=== PATIENT | male | born 1945 | race Caucasian/White ===

== ENCOUNTER 2020-04-28 09:34 | Emergency (ER) | payer MEDICARE, SELFPAY ==
[2020-04-28 10:07] VITALS: PULSE 73; RESP 15; TEMP 36.8; O2SAT 99; BMI 34.2
--- NOTE | 2020-04-28 10:52 | ED_ITS ---
HPI - Dental/Oral General Chief complaint: Dental/Oral Stated complaint: root canal infection causing left side facial pain Time Seen by Provider: 04/28/20 10:41 Source: patient and family () Mode of arrival: Ambulatory Limitations: no limitations History of Present Illness HPI Narrative: This is a 74-year-old male comes to the emergency department with complaint of dental pain in the left cheek that has been intermittent but started again last night and is now radiating up the cheek, towards the left ear into his left eye and scalp. Patient states that he has also noticed the left eye is injected. And that he has had some decreased vision that things are sort of blurry and bright. He states the vision changes started last night. He denies any fevers. He denies any vomiting but was slightly nauseated. No numbness, tingling or weakness. No facial droop. No dysarthria difficulty with speech. Patient has not any difficulty with movement. He states he tried some Tylenol last night and his last dose was at 9:00 a.m. is helpful for a couple hours but then recurs. Pain is worse than it typically is. He states that he had a dental procedure in the past where they punctured into the sinus, he states that it has not been repaired he has been told that will not repair it. He does have a history of TIA approximately a year ago. He is on antihypertensive, dyslipidemia medication, insulin, and Plavix. Location: Tooth # (13/14 region.) Review of Systems Review of Systems ROS Unobtainable: All systems reviewed & are unremarkable except as noted in HPI and below Patient History Social History Smoking Status: Former smoker Smoking Status: Former smoker alcohol intake frequency: 0-2 drinks per day Substance Use Type: does not use Exam Narrative Exam Narrative: GEN: well nourished, well appearing male, alert and oriented x 3, patient appears to be in mild distress. HEENT: Atraumatic, pupils are equal round reactive to light bilaterally but asymmetric. Left pupil is 4-5 mm and right pupil is 2-3 mm. Posterior exam is difficult secondary to small pupils but the left side does seem darker. extraocular movements are intact, no swelling periorbitally. Nares are clear, TMs are clear with no fluid, there is no conjunctival pallor. Throat is clear without any exudates, erythema, tonsillar enlargement or uvular deviation Visual acuity: right [20/50], left [20/200] without correction. IOP: Right 19 mm Hg, Left 52 mm Hg General: no globe trauma Eyelids: normal inspection. Conjunctiva/Sclera: normal inspection on right, injected on right. Corneas: normal inspection, EOM: intact, no palsy/entrapment Pupils: PERRL, normal accomadation, pupil asymmetric see above Anterior Chambers: normal inspection, no hypema Posterior: normal fundoscopic difficult to obtain on left HEART: Regular rate and rhythm without murmur, clicks, rubs. LUNGS:Lungs clear to auscultation, no wheezes, rales, crackles, chest moves symmetrically ABD:bowel sounds normal, soft, non-tender, no guarding, rebound, rigidity, no masses noted, no hepatosplenomegaly MSCL: Non-tender, no muscle atrophy, muscles strength 5/5 upper and lower extremities, full range of motion, normal gait NEURO:CN 2-12 intact, sensation normal SKIN: No erythema, no blistering or other skin changes noted. Initial Vital Signs Initial Vital Signs: Vital Signs Temperature 98.2 F 04/28/20 10:07 Pulse Rate 73 04/28/20 10:07 Respiratory Rate 15 04/28/20 10:07 Pulse Oximetry 99 04/28/20 10:07 Course Orders Ordered: ED Orders 04/28/20 11:12 CT facial bones w con Stat CT head/brain wo con Stat 04/28/20 11:41 Blood Culture Stat 04/28/20 11:42 Basic Metabolic Panel Stat Complete Blood Count AUTO DIFF Stat Lactate (Lactic Acid) Stat Partial Thromboplastin Time Stat Procalcitonin Stat Prothrombin Time INR Stat Discontinued Medications Acetazolamide (Acetazolamide 250 Mg Tablet) 500 mg PO NOW ONE Stop: 04/28/20 12:46 Last Admin: 04/28/20 13:44 Dose: 500 mg Documented by: RMARTIN Amlodipine Besylate (Amlodipine 5 Mg Tablet) 5 mg PO NOW ONE Stop: 04/28/20 13:37 Last Admin: 04/28/20 13:43 Dose: 5 mg Documented by: RMARTIN Brimonidine Tartrate (Brimonidine 0.2% Ophth 5 Ml) 1 drops EYE-LEFT BID ONE Stop: 12/06/20 13:55 Last Admin: 04/28/20 14:22 Dose: 1 drops Documented by: IVETTE Dorzolamide HCl (Dorzolamide 2% Ophth 10 Ml) 1 drops EYE-LEFT BID ONE Stop: 04/28/20 13:53 Last Admin: 04/28/20 14:26 Dose: 1 drops Documented by: IVETTE Morphine Sulfate (Morphine 4 Mg/Ml Inj) 2 mg IV NOW ONE Stop: 04/28/20 11:12 Last Admin: 04/28/20 11:48 Dose: 2 mg Documented by: MARIAH Morphine Sulfate (Morphine 4 Mg/Ml Inj) 4 mg IV NOW ONE Stop: 04/28/20 13:37 Last Admin: 04/28/20 13:44 Dose: 4 mg Documented by: IVETTE Pilocarpine HCl (Pilocarpine 2% Ophth Drops 15 Ml) 1 drops EYE-LEFT Q30MIN ONE Stop: 04/28/20 12:46 Last Admin: 04/28/20 13:27 Dose: 1 drops Documented by: IVETTE Proparacaine HCl (Proparacaine 0.5% Ophth [place]) 2 drops EYE-LEFT NOW ONE Stop: 04/28/20 11:19 Last Admin: 04/28/20 11:48 Dose: 2 drop Documented by: MARIAH Timolol Maleate (Timolol 0.5% Ophth) 1 drops EYE-LEFT DAILY ONE Stop: 04/28/20 12:44 Last Admin: 04/28/20 13:26 Dose: 1 drop Documented by: IVETTE Reevaluation(s) Reevaluation #1: UPdated patient and family on todays findings and need for emergent ophthalmology evaluation and potentially additional intervention. We did discuss that patient needs to go immediately to [facility] ER for evaluation. We also reviewed patient's imaging including head CT, CT facial bones, lab work. Reevaluation #2: Patient's repeat pressure is 52 but his pupils are now equal and his vision is slowly improving per patient visual acuity was not repeated. Time: 14:14 Additional Reevaluation(s): Spoke with Ophthalmology, Dr. Adames from [facility] as we do not have coverage. She recommends in addition to timolol to give dorzolamide ophthalmic and brimonidine gtts prior to transfer. We do not have as he does own mind IV available so will do as he does allow might 500 mg p.o. which patient has received. Plan for patient to transfer via private auto and that will facilitate faster treatment and patient is otherwise medically stable to [facility] ER Consultations Time: 13:16 Vital Signs Vital signs: Vital Signs - 8 hr 04/28/20 10:07 04/28/20 11:58 04/28/20 13:54 Temperature 98.2 F Pulse Rate 73 82 82 Respiratory Rate 15 18 16 Blood Pressure 193/85 H 204/79 H Pulse Oximetry 99 98 95 04/28/20 14:24 Temperature Pulse Rate 76 Respiratory Rate 18 Blood Pressure 196/85 H Pulse Oximetry 94 MDM - Dental/Oral Lab Data Attestation: I reviewed the patient's lab results. Result diagrams: 04/28/20 11:42 04/28/20 11:42 Labs: Lab Results 04/28/20 04/28/20 04/28/20 Range/Units 11:42 11:42 11:42 WBC 11.1 H (4.5-11.0) X10^3/uL RBC 4.75 (4.5-5.9) X10^6/uL Hgb 13.0 L (13.5-17.5) g/dL Hct 39.9 L (41-53) % MCV 84.0 (80-100) fL MCH 27.3 (26-34) PG MCHC 32.5 (30-36) % RDW 14.2 (11.6-14.8) % Plt Count 264 (150-400) X10^3/uL Neut % (Auto) 84.3 H (50-75) % Lymph % (Auto) 9.3 L (25-40) % Nicollet % (Auto) 4.9 (3-14) % Eos % (Auto) 0.3 L (2-4) % Baso % (Auto) 1.2 (0-2) % Neut # (Auto) 9400 H (8359-1458) /uL Lymph # (Auto) 1000 L (2905-3285) /uL Nicollet # (Auto) 500 (0-900) /uL Eos # (Auto) 0 (0-450) /uL Baso # (Auto) 100 (0-100) /uL PT 12.2 (10.1-12.7) SECONDS INR 1.1 (0.9-1.3) APTT 34 (26.4-36.2) SECONDS Sodium (137-145) mmol/L Potassium (3.4-5.1) mmol/L Chloride (98-107) mmol/L Carbon Dioxide (22-32) mmol/L BUN (9-20) mg/dL Creatinine (0.66-1.25) mg/dL Estimated GFR (>60) mL/min BUN/Creatinine Ratio (6-22) Glucose (80-110) mg/dL Lactate (0.7-2.1) mmol/L Calcium (8.4-10.2) mg/dL Procalcitonin < 0.05 (<0.5) ng/mL 04/28/20 04/28/20 Range/Units 11:42 11:42 WBC (4.5-11.0) X10^3/uL RBC (4.5-5.9) X10^6/uL Hgb (13.5-17.5) g/dL Hct (41-53) % MCV (80-100) fL MCH (26-34) PG MCHC (30-36) % RDW (11.6-14.8) % Plt Count (150-400) X10^3/uL Neut % (Auto) (50-75) % Lymph % (Auto) (25-40) % Nicollet % (Auto) (3-14) % Eos % (Auto) (2-4) % Baso % (Auto) (0-2) % Neut # (Auto) (4872-7627) /uL Lymph # (Auto) (0688-3888) /uL Nicollet # (Auto) (0-900) /uL Eos # (Auto) (0-450) /uL Baso # (Auto) (0-100) /uL PT (10.1-12.7) SECONDS INR (0.9-1.3) APTT (26.4-36.2) SECONDS Sodium 139 (137-145) mmol/L Potassium 3.9 (3.4-5.1) mmol/L Chloride 105 (98-107) mmol/L Carbon Dioxide 29 (22-32) mmol/L BUN 21 H (9-20) mg/dL Creatinine 1.19 (0.66-1.25) mg/dL Estimated GFR 59.9 L (>60) mL/min BUN/Creatinine Ratio 17.6 (6-22) Glucose 173 H (80-110) mg/dL Lactate 0.9 (0.7-2.1) mmol/L Calcium 9.1 (8.4-10.2) mg/dL Procalcitonin (<0.5) ng/mL Point of Care Testing Glucose POC [address] scan - head: Radiologist's Impression: [address] [id number] Scan ReportSigned Patient: Raymundo Truong MMR#: [id number]: [id number]:[id number]/Sex: 74 / MDate of Service: 04/28/20Loc: EDAccession Number: [id number] Procedure: CT head/brain wo con Ordering Provider: Ana Lilia Garcia D.O. PROCEDURE: CT HEAD/BRAIN WO CON INDICATIONS: headache, dental/orbit pain, pupil assymetry TECHNIQUE: Noncontrast 4.5 mm thick angled axial sections acquired from the foramen magnum to the vertex, with coronal and sagittal reformats. For radiation dose reduction, the following was used: automated exposure control, adjustment of mA and/or kV according to patient size. COMPARISON: [facility], CT, CT HEAD WITHOUT CONTRAST, 06/17/2019, 22:34. FINDINGS: Image quality: Excellent. CSF spaces: Basal cisterns are patent. No extra-axial fluid collections. The ventricles are symmetric in size and shape. Brain: No intracranial bleeds or masses. There is cerebral volume loss for age, with resultant ventricular and sulcal prominence. There are periventricular and deep white matter chronic small vessel ischemic changes. There is intracranial internal carotid artery atherosclerosis. Skull and face: Calvarium and visualized facial bones appear intact, without suspicious lesions. Sinuses: Visualized sinuses and mastoids are clear. IMPRESSION: 1. No acute intracranial abnormalities. 2. Cerebral volume loss and chronic microvascular ischemic changes. Dictated by: Kanika Daniels M.D. on 04/28/2020 at 13:02 Approved by: Kanika Daneils M.D. on 04/28/2020 at 13:03 CT facial bones: Radiologist's Impression: [address], [place] [address] Scan ReportSigned Patient: Raymundo Truong [facility]#: [id number]: 7Acct:[id number]/Sex: 74 / MDate of Service: 04/28/20Loc: EDAccession Number: [id number] Procedure: CT facial bones w con Ordering Provider: Ana Lilia Garcia D.O. PROCEDURE: CT FACIAL BONES W CON INDICATIONS: dental pain, orbital pain left eye TECHNIQUE: After the administration of intravenous contrast, 2.5 mm axial sections acquired from the mid-neck to the frontal sinuses, with coronal and sagittal reformats. For radiation dose reduction, the following was used: automated exposure control, adjustment of mA and/or kV according to patient size. COMPARISON: [facility], CT, CT HEAD/BRAIN WO [facility], 04/28/2020, 12:39. FINDINGS: Image quality: Excellent. Soft tissues: No edema, masses, or fluid collections. No enlarged lymph nodes. Vascular: Visualized vascular structures appear patent throughout. Bony vascular foramina and canals appear normal. Bones: Facial bones appear intact, without fractures, erosions, or destruction. Visualized portions of the skull base and auditory canals also appear normal. Sinuses: Mild left maxillary sinus mucosal thickening.. Mastoid air cells are aerated. IMPRESSION: 1. No acute facial bone abnormalities. 2. Mild left maxillary sinusitis. Dictated by: Kanika Daniels M.D. on 04/28/2020 at 13:03 Approved by: Kanika Daniels M.D. on 04/28/2020 at 13:06 [facility] Narrative Medical decision making narrative: 74-year-old male comes in with complaint of dental pain that is now radiating to his eye, forehead any ear. Patient had prior trauma after a dental procedure that makes him more predisposed to sin usitis. On examination there is asymmetry of pupils size noted as well as decreased response to light. Patient's visual acuity is decreased significantly in the left eye and his intra-ocular pressure was 52 and comparison to 19 on the right, patient has never been told that he had glaucoma, he has seen an cans vacuum tester regularly and was told he might be developing cataracts. He has not had symptoms similar to this or to this degree in the past and ophthalmology was consulted, spoke with Dr. Adames who recommend transfer for evaluation. Plan to transfer via private auto as it will facilitate faster treatment than waiting for an ambulance and patient is otherwise medically appropriate. Patient's and the patient himself and I will discuss the current plan and importance for timely treatment to prevent loss of vision. Discharge Plan Departure Patient Disposition: [facility] Clinical Impression: Glaucoma, Changes in vision Activity Restrictions/Additional Instructions: Go directly to [facility] Emergency Department for evaluation by ophthalmology for acute angle closure glaucoma. I did speak with Dr. Adames from Ophthalmology and they are expecting you to come to the ER for evaluation. You received several eyedrops here in the emergency department as well as acetaz queenie 500 mg by mouth. Take the packet that was given to you in the emergency department with you to give to the physician or nursing staff at [facility].
--- NOTE | 2020-04-28 11:12 | DI.CT.S_ITS ---
PROCEDURE: CT HEAD/BRAIN WO CON INDICATIONS: headache, dental/orbit pain, pupil assymetry TECHNIQUE: Noncontrast 4.5 mm thick angled axial sections acquired from the foramen magnum to the vertex, with coronal and sagittal reformats. For radiation dose reduction, the following was used: automated exposure control, adjustment of mA and/or kV according to patient size. COMPARISON: [facility], CT, CT HEAD WITHOUT CONTRAST, 06/17/2019, 22:34. FINDINGS: Image quality: Excellent. CSF spaces: Basal cisterns are patent. No extra-axial fluid collections. The ventricles are symmetric in size and shape. Brain: No intracranial bleeds or masses. There is cerebral volume loss for age, with resultant ventricular and sulcal prominence. There are periventricular and deep white matter chronic small vessel ischemic changes. There is intracranial internal carotid artery atherosclerosis. Skull and face: Calvarium and visualized facial bones appear intact, without suspicious lesions. Sinuses: Visualized sinuses and mastoids are clear. IMPRESSION: 1. No acute intracranial abnormalities. 2. Cerebral volume loss and chronic microvascular ischemic changes. Dictated by: Kanika Daniels M.D. on 04/28/2020 at 13:02 Approved by: Kanika Daniels M.D. on 04/28/2020 at 13:03
--- NOTE | 2020-04-28 11:12 | DI.CT.S_ITS ---
PROCEDURE: CT FACIAL BONES W CON INDICATIONS: dental pain, orbital pain left eye TECHNIQUE: After the administration of intravenous contrast, 2.5 mm axial sections acquired from the mid-neck to the frontal sinuses, with coronal and sagittal reformats. For radiation dose reduction, the following was used: automated exposure control, adjustment of mA and/or kV according to patient size. COMPARISON: [facility], CT, CT HEAD/BRAIN WO CON, 04/28/2020, 12:39. FINDINGS: Image quality: Excellent. Soft tissues: No edema, masses, or fluid collections. No enlarged lymph nodes. Vascular: Visualized vascular structures appear patent throughout. Bony vascular foramina and canals appear normal. Bones: Facial bones appear intact, without fractures, erosions, or destruction. Visualized portions of the skull base and auditory canals also appear normal. Sinuses: Mild left maxillary sinus mucosal thickening.. Mastoid air cells are aerated. IMPRESSION: 1. No acute facial bone abnormalities. 2. Mild left maxillary sinusitis. Dictated by: Kanika Daniels M.D. on 04/28/2020 at 13:03 Approved by: Kanika Daniels M.D. on 04/28/2020 at 13:06
[2020-04-28] MEDS: PROPARACAINE 0.5% OPHTH SOL 2 DROPS EYE-LEFT (11:48)
[2020-04-28] MEDS: MORPHINE 4 MG/ML INJ 2 MG IV (11:48)
[2020-04-28 11:54] LABS: Add Manual Diff / Slide Review NO; Basophils Absolute Auto 100 /uL (0-100); Basophils Percent Auto 1.2 % (0-2); Eosinophils Absolute Auto 0 /uL (0-450); Eosinophils Percent Auto 0.3 % (2-4); Hematocrit 39.9 % (41-53); Lymphocytes Absolute Auto 1000 /uL (1100-4500); Lymphocytes Percent Auto 9.3 % (25-40); Mean Corpuscular HGB Conc 32.5 % (30-36); Mean Corpuscular Hemoglobin 27.3 PG (26-34); Monocytes Absolute Auto 500 /uL (0-900); Monocytes Percent Auto 4.9 % (3-14); Neutrophils Absolute Auto 9400 /uL (1500-7000); Neutrophils Percent Auto 84.3 % (50-75); Platelet Count 264 X10^3/uL (150-400); Red Blood Cell Count 4.75 X10^6/uL (4.5-5.9); Red Cell Distribution Width 14.2 % (11.6-14.8); White Blood Cell Count 11.1 X10^3/uL (4.5-11.0)
[2020-04-28 11:58] VITALS: BP 193/85; PULSE 82; RESP 18; O2SAT 98
[2020-04-28 12:03] LABS: INR 1.1 (0.9-1.3); Prothrombin Time 12.2 SECONDS (10.1-12.7)
[2020-04-28 12:06] LABS: BUN Creatinine Ratio 17.6 (6-22); Blood Urea Nitrogen 21 mg/dL (9-20); Calcium 9.1 mg/dL (8.4-10.2); Carbon Dioxide 29 mmol/L (22-32); Chloride 105 mmol/L (98-107); Estimated Glomerular Filt Rate 59.9 mL/min (>60); Glucose 173 mg/dL (80-110); HEMOLYSIS < 15 (0-50); PTT Partial Thromboplastin Tim 34 SECONDS (26.4-36.2); Potassium 3.9 mmol/L (3.4-5.1); Sodium 139 mmol/L (137-145)
[2020-04-28 12:07] LABS: Lactate (Lactic Acid) 0.9 mmol/L (0.7-2.1)
[2020-04-28 12:22] LABS: Procalcitonin < 0.05 ng/mL (<0.5)
[2020-04-28] MEDS: ONDANSETRON 4 MG/2 ML INJ (12:54)
--- NOTE | 2020-04-28 12:55 | PC.NURSE ---
ct called to inform staff patient vomiting in CT. Provider gave verbal order fro 4mg zofran IV. Given in CT. Pt ambulated back to room, stead on feet.
[2020-04-28] MEDS: TIMOLOL 0.5% OPHTH 1 DROPS EYE-LEFT (13:26)
[2020-04-28] MEDS: PILOCARPINE 2% OPHTH DROPS 15 ML 1 DROPS EYE-LEFT (13:27)
[2020-04-28] MEDS: AMLODIPINE 5 MG TABLET PO (13:43)
[2020-04-28] MEDS: MORPHINE 4 MG/ML INJ IV (13:44)
[2020-04-28] MEDS: acetaZOLAMIDE 250 MG TABLET 500 MG PO (13:44)
[2020-04-28 13:54] VITALS: BP 204/79; PULSE 82; RESP 16; O2SAT 95
--- NOTE | 2020-04-28 13:54 | PC.NURSE ---
Patient BP 204/79. States takes amlodopine 5mg daily for HTN and did not take morning dose. Denies chest pain or headache. Provider notified, home dose of amlodopine ordered and given.
[2020-04-28] MEDS: BRIMONIDINE 0.2% OPHTH 5 ML 1 DROPS EYE-LEFT (14:22)
[2020-04-28 14:24] VITALS: BP 196/85; PULSE 76; RESP 18; O2SAT 94
[2020-04-28] MEDS: DORZOLAMIDE 2% OPHTH 10 ML 1 DROPS EYE-LEFT (14:26)
== END 2020-04-28 14:57 | disposition short-term general hospital (02) ==
PROVIDERS: Emergency Provider Emergency Medicine
DX: H40.9 Unspecified glaucoma (principal); H53.8 Other visual disturbances; R51.9 Headache, unspecified; R11.0 Nausea; Z86.73 Personal history of transient ischemic attack (TIA), and cerebral infarction without residual deficits; I10 Essential (primary) hypertension; E78.5 Hyperlipidemia, unspecified
CPT/HCPCS: 36415; 70450; 70487; 80048; 82962; 83605; 84145; 85025; 85610; 85730; 87040; 96374; 96376; 99283; 99284; J2270; J2405; Q9967

== ENCOUNTER → 2020-09-10 13:44 | Outpatient (CLI) | payer MEDICARE, SELFPAY | PROVIDERS: PCP Student in an Organized Health Care Education/Training Program; Visit Provider Physician Assistant | DX: R31.9 Hematuria, unspecified (principal) | CPT/HCPCS: 87086 ==

== ENCOUNTER → 2020-09-18 11:51 | Outpatient (CLI) | payer MEDICARE, SELFPAY ==
[2020-09-18 12:34] LABS: HEMOLYSIS < 15 (0-50)
[2020-09-18 12:35] LABS: BUN Creatinine Ratio 14.7 (6-22); Blood Urea Nitrogen 22 mg/dL (9-20); Calcium 8.8 mg/dL (8.4-10.2); Carbon Dioxide 28 mmol/L (22-32); Chloride 106 mmol/L (98-107); Cholesterol 128 mg/dL (140-199); Estimated Glomerular Filt Rate 45.9 mL/min (>60); Glucose 181 mg/dL (80-110); HDL Cholesterol 35 mg/dL (40-60); LDL Cholesterol Calculated 59 mg/dL (<100); Sodium 138 mmol/L (137-145); Triglycerides 168 mg/dL (35-150)
[2020-09-18 13:01] LABS: Prostate Specific Antigen Scrn 1.43 ng/mL (0.1-4.0)
== END ==
PROVIDERS: PCP Student in an Organized Health Care Education/Training Program; Referring Provider Student in an Organized Health Care Education/Training Program; Visit Provider Student in an Organized Health Care Education/Training Program
DX: E11.69 Type 2 diabetes mellitus with other specified complication; Z12.5 Encounter for screening for malignant neoplasm of prostate; I87.2 Venous insufficiency (chronic) (peripheral)
CPT/HCPCS: 36415; 80048; 80061; 83036; G0103

== ENCOUNTER 2021-02-19 18:31 | Emergency (ER) | payer MEDICARE, SELFPAY ==
--- NOTE | 2021-02-19 18:37 | ED.GENADULT ---
HPI - General Adult General Chief complaint: Fall Stated complaint: GLF Time Seen by Provider: 02/19/21 18:31 Source: patient and EMS Mode of arrival: EMS History of Present Illness HPI narrative: Patient is a 75-year-old male. Is on anticoagulation. Was brought in by EMS for evaluation of a fall. He states that he thought that he heard his fall at home. He went to go check on her and tripped and fell on his own. He did land on his right side. He did not hit his head. There was no loss of consciousness. Complained of right hip pain and right shoulder pain and also neck pain. He was in a cervical collar upon arrival. Patient reports no other injuries from the event. Related Data Home Medications Medication Instructions Recorded Confirmed carvedilol 12.5 mg tablet 12.5 mg PO BID 09/10/20 11/07/20 fenofibrate 54 mg tablet 54 mg PO DAILY 09/10/20 11/07/20 clopidogrel 75 mg tablet 75 mg PO DAILY 09/18/20 11/07/20 insulin NPH isoph U-100 human 100 40 unit SUBCUT BID ml 09/18/20 11/07/20 unit/mL subcutaneous suspension (Novolin N NPH U-100 Insulin isophane) lisinopril 40 mg tablet 40 mg PO DAILY 09/18/20 11/07/20 one touch ultra blue test strips #1 ea 09/18/20 11/07/20 Previous Rx's Medication Instructions Recorded tamsulosin 0.4 mg capsule 0.8 mg PO DAILY #180 cap 09/18/20 amlodipine 5 mg tablet 10 mg PO DAILY #180 tab 12/02/20 rosuvastatin 20 mg tablet 20 mg PO DAILY #90 tab 02/06/21 Allergies Allergy/AdvReac Type Severity Reaction Status Date / Time Interferons Allergy Severe unknown Verified 02/19/21 18:53 sitagliptin [From Januvia] Allergy Severe unknown Verified 02/19/21 18:53 Review of Systems Constitutional Constitutional: Denies frequent falls and Denies headache(s) Eyes Eyes: Reports system reviewed and no additional complaints, except as documented ENT Ears, Nose, Mouth, and Throat: Denies headache(s) Cardiovascular Cardiovascular: Reports as per HPI and Reports system reviewed and no additional complaints, except as documented Respiratory Respiratory: Reports as per HPI and Reports system reviewed and no additional complaints, except as documented Gastrointestinal Gastrointestinal: Reports as per HPI and Reports system reviewed and no additional complaints, except as documented Musculoskeletal Musculoskeletal: Reports as per HPI Integumentary/Breasts Skin/Breast: Reports system reviewed and no additional complaints, except as documented Neurologic Neurologic: Denies frequent falls and Denies headache(s) Hematologic/Lymphatic On Anticoagulants: Yes Allergic/Immunologic Allergic/Immunologic: Reports system reviewed and no additional complaints, except as documented Patient History Medical History Bladder cancer BPH loc w urin obs/LUTS Hyperlipidemia Scrotum swelling Social History Smoking Status: Former smoker Smoking Status: Former smoker alcohol intake frequency: 0-2 drinks per day Substance Use Type: does not use Exam Initial Vital Signs Initial Vital Signs: Vital Signs Temperature 98.0 F 02/19/21 18:53 Pulse Rate 73 02/19/21 18:53 Respiratory Rate 15 02/19/21 18:53 Blood Pressure 209/89 H 02/19/21 18:53 Pulse Oximetry 98 02/19/21 18:53 Const General: cooperative, healthy appearing, comfortable and well developed [facility] Head: normal to inspection, normocephalic, No abrasion, No Irving's sign and No contusion Eyes General: appearance normal, both eyes and all related structures Chest Chest: No crepitus and No tenderness Resp Effort & Inspection: normal respiratory effort Auscultation: clear to auscultation bilaterally Cardio Rate: regular rate Rhythm: regular rhythm GI Inspection: normal to inspection Palpation: soft and No tender Back/Spine/Pelvis Cervical Spine: cervical spinal tenderness Skin General: no rashes or lesions noted Neuro General: patient alert, patient awake, patient oriented x3 and moves all extremities Extrem General: normal to inspection and capillary refill normal Other: Patient does have full range of motion of his right shoulder but has tenderness to palpation on the oral/posterior aspect of it. Also has tenderness to palpation on the lateral aspect of the right hip. His pelvis is otherwise stable. Left hip is unremarkable. Psych Appearance: grossly normal and well kempt Scores GCS Ki coma scale eye opening: Spontaneous Ki coma scale verbal response: Orientated Ki coma scale motor response: Obey commands [place] coma scale total score: 15 Nexus Score for C-Spine Focal Neurologic deficit present: No Midline spinal tenderness present: Yes Altered level of conciousness present: No Intoxication present: No Distracting Injury Present: No Nexus Criteria for C-spine: 1 Course Orders Ordered: ED Orders 02/19/21 18:37 CT cervical spine wo con Stat XR hip w pel if done RT 2V Stat XR shoulder RT min 2V Stat 02/19/21 18:42 CT head/brain wo con Stat Discontinued Medications Acetaminophen (Acetaminophen 325 Mg Tablet) 650 mg PO NOW ONE Stop: 02/19/21 19:31 Last Admin: 02/19/21 19:35 Dose: 650 mg Documented by: HEENA Vital Signs Vital signs: Vital Signs - 8 hr 02/19/21 18:53 Temperature 98.0 F Pulse Rate 73 Respiratory Rate 15 Blood Pressure 209/89 H Pulse Oximetry 98 Medical Decision Making Imaging Data CT scan - head: Radiologist's Impression: [address] [id number] Scan ReportSigned Patient: Raymundo Truong MMR#: [id number]: 7Acct:[id number]/Sex: 75 / MDate of Service: 02/19/21Loc: EDAccession Number: [id number] Procedure: CT head/brain wo con Ordering Provider: Mauricio Chacko D.O. PROCEDURE: CT HEAD/BRAIN WO CON INDICATIONS: fall on thinners TECHNIQUE: Noncontrast 4.5 mm thick angled axial sections acquired from the foramen magnum to the vertex, with coronal and sagittal reformats. For radiation dose reduction, the following was used: automated exposure control, adjustment of mA and/or kV according to patient size. COMPARISON: [facility], CT, CT HEAD/BRAIN WO CON, 04/28/2020, 12:39. FINDINGS: Image quality: Excellent. CSF spaces: Basal cisterns are patent. No extra-axial fluid collections. The ventricles are symmetric in size and shape. Brain: No intracranial bleeds or masses. There is mild cerebral volume loss for age, with resultant ventricular and sulcal prominence. There are mild periventricular and deep white matter chronic small vessel ischemic changes. There is moderate intracranial internal carotid artery atherosclerosis. Skull and face: Calvarium and visualized facial bones appear intact, without suspicious lesions. Sinuses: Visualized sinuses and mastoids are clear. IMPRESSION: 1. No acute intracranial hemorrhage. 2. Age-appropriate exam with mild chronic microvascular ischemic changes. 3. No visible fractures. Dictated by: Angelica Connor M.D. on 02/19/2021 at 19:05 Approved by: Angelica Connor M.D. on 02/19/2021 at 19:08 CT - cervical spine: Radiologist's Impression: [address] [id number] Scan ReportSigned Patient: Raymundo Truong MMR#: [id number]: 7Acct:[id number]/Sex: 75 / MDate of Service: 02/19/21Loc: EDAccession Number: [id number] Procedure: CT cervical spine wo con Ordering Provider: Mauricio Chacko D.O. PROCEDURE: CT CERVICAL SPINE WO CON INDICATIONS: midline neck pain after fall TECHNIQUE: Noncontrast 3 mm thick sections acquired from the skull base to the T4 level. Sagittal and coronal reformats were then constructed. For radiation dose reduction, the following was used: automated exposure control, adjustment of mA and/or kV according to patient size. COMPARISON: [facility], CT, CT ANGIO HEAD AND NECK, 06/18/2019, 8:36. FINDINGS: Image quality: Excellent. Bones: No fractures or pathologic subluxation. There are prominent anterior and posterior endplate osteophytes at C5, C6, and C7 with bridging osteophytosis anteriorly into the upper thoracic spine. Moderate to severe disc height loss C5-6 and C6-7. Probable moderate multilevel central canal stenosis.. Visualized superior ribs are intact. Soft tissues: Prevertebral soft tissues are normal in thickness. No paravertebral hematomas. No apical pneumothoraces. There is a large fatty mass arising from the left paramedian latissimus muscle measuring at least 13.9 x 8.2 x 6.4 cm Bilateral dependently layering pleural effusions. IMPRESSION: 1. No acute fracture or pathologic subluxation. 2. Multilevel degenerative endplate spurring in the lower cervical spine without significant change since prior. 3. 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 Dictated by: Angelica Connor M.D. on 02/19/2021 at 19:08 Approved by: Angelica Connor M.D. on 02/19/2021 at 19:15 Extremity x-ray #1: Radiologist's Impression: [address] [id number] ReportSigned Patient: Raymundo Truong [facility]#: [id number]: 7Acct:[id number]/Sex: 75 / MDate of Service: 02/19/21Lo: EDAccession Number: [id number] Procedure: XR shoulder RT min 2V Ordering Provider: Mauricio Chacko D.O. PROCEDURE: XR SHOULDER RT MIN 2V INDICATIONS: pain after fall TECHNIQUE: 3 views of the shoulder were acquired. COMPARISON: None. FINDINGS: Bones: No fractures or dislocations. No suspicious bony lesions. Visualized ribs appear intact. Soft tissues: No suspicious soft tissue calcifications. Chronic interstitial changes noted in the right lung apex IMPRESSION: No fracture or dislocation. Approved by: Kwadwo Menendez M.D. on 02/19/2021 at 18:16 Extremity x-ray #2: Radiologist's Impression: [address] [id number] ReportSigned Patient: Raymundo Truong [facility]#: [id number]: 7Acct:[id number]/Sex: 75 / MDate of Service: 02/19/21Lo: EDAccession Number: [id number] Procedure: XR hip w pel if done RT 2V Ordering Provider: Mauricio Chacko D.O. PROCEDURE: XR HIP W PEL IF DONE RT 2V INDICATIONS: pain after fall TECHNIQUE: AP pelvis with lateral view(s) of the right hip(s). COMPARISON: None. FINDINGS: Bones: No fractures or dislocations. Pelvic ring appears intact. No suspicious bony lesions. Moderate bilateral joint space narrowing present. Soft tissues: The visualized bowel gas pattern is normal. No suspicious soft tissue calcifications. Atherosclerotic vascular calcification noted. IMPRESSION: Moderate bilateral osteoarthritis without fracture or dislocation. Approved by: Kwadwo Menendez M.D. on 02/19/2021 at 18:15 MDM Narrative Medical decision making narrative: Patient has no fractures on his x-rays. Head CT and cervical spine CT unremarkable. He was given Tylenol for discomfort. No further workup needed in the emergency department. Was given return precautions and follow-up instructions. He expressed understanding and agreement. Discharge Plan Departure Patient Disposition: Home Clinical Impression: Contusion of hip, right, Contusion of shoulder Instructions: How To Perform RICE (Rest, Ice, Compress, Elevate) Activity Restrictions/Additional Instructions: Your x-rays today and CT scans do not show any signs of fractures or internal bleeding. Continue to take all of your medications as directed. I would expect that your own to be sore tomorrow. You can continue to take Tylenol. Return to the emergency department for any new or worsening symptoms Prescriptions: No Action carvedilol 12.5 mg tablet 12.5 mg PO BID RF: 0 fenofibrate 54 mg tablet 54 mg PO DAILY RF: 0 amlodipine 5 mg tablet 10 mg PO DAILY Qty: 180 RF: 2 rosuvastatin 20 mg tablet 20 mg PO DAILY Qty: 90 RF: 1 lisinopril 40 mg tablet 40 mg PO DAILY RF: 0 (DME) one touch ultra blue test strips 0 .Route .MEDSUPPLY Qty: 1 RF: 0 clopidogrel 75 mg tablet 75 mg PO DAILY RF: 0 Novolin N NPH U-100 Insulin 100 unit/mL suspension 40 unit SUBCUT BID RF: 0 tamsulosin 0.4 mg capsule 0.8 mg PO DAILY Qty: 180 RF: 3 Referrals: Toan Oliveira MD [Primary Care Provider] -
--- NOTE | 2021-02-19 18:42 | DI.CT.S_ITS ---
PROCEDURE: CT HEAD/BRAIN WO CON INDICATIONS: fall on thinners TECHNIQUE: Noncontrast 4.5 mm thick angled axial sections acquired from the foramen magnum to the vertex, with coronal and sagittal reformats. For radiation dose reduction, the following was used: automated exposure control, adjustment of mA and/or kV according to patient size. COMPARISON: [facility], CT, CT HEAD/BRAIN WO CON, 04/28/2020, 12:39. FINDINGS: Image quality: Excellent. CSF spaces: Basal cisterns are patent. No extra-axial fluid collections. The ventricles are symmetric in size and shape. Brain: No intracranial bleeds or masses. There is mild cerebral volume loss for age, with resultant ventricular and sulcal prominence. There are mild periventricular and deep white matter chronic small vessel ischemic changes. There is moderate intracranial internal carotid artery atherosclerosis. Skull and face: Calvarium and visualized facial bones appear intact, without suspicious lesions. Sinuses: Visualized sinuses and mastoids are clear. IMPRESSION: 1. No acute intracranial hemorrhage. 2. Age-appropriate exam with mild chronic microvascular ischemic changes. 3. No visible fractures. Dictated by: Angelica Connor M.D. on 02/19/2021 at 19:05 Approved by: Angelica Connor M.D. on 02/19/2021 at 19:08
[2021-02-19 18:53] VITALS: BP 209/89; PULSE 73; RESP 15; TEMP 36.7; O2SAT 98; BMI 32.3
[2021-02-19] MEDS: ACETAMINOPHEN 325 MG TABLET 650 MG PO (19:35)
[2021-02-19 19:50] VITALS: BP 187/99; PULSE 76; RESP 20; O2SAT 92
== END 2021-02-19 20:05 | disposition home or self-care (01) ==
PROVIDERS: Emergency Provider Emergency Medicine; PCP Student in an Organized Health Care Education/Training Program
DX: S70.01XA Contusion of right hip, initial encounter (principal); S40.011A Contusion of right shoulder, initial encounter; M54.2 Cervicalgia; W19.XXXA Unspecified fall, initial encounter
CPT/HCPCS: 70450; 72125; 73030; 73502; 82962; 99284

== ENCOUNTER → 2021-05-02 11:44 | Outpatient (CLI) | payer MEDICARE, SELFPAY ==
[2021-05-02 12:30] LABS: Add Manual Diff / Slide Review NO; Basophils Absolute Auto 0 /uL (0-100); Basophils Percent Auto 0.7 % (0-2); Eosinophils Absolute Auto 100 /uL (0-450); Eosinophils Percent Auto 1.7 % (2-4); Hematocrit 35.4 % (41-53); Hemoglobin 11.5 g/dL (13.5-17.5); Lymphocytes Absolute Auto 1000 /uL (1100-4500); Lymphocytes Percent Auto 15.3 % (25-40); Mean Corpuscular HGB Conc 32.6 % (30-36); Mean Corpuscular Hemoglobin 27.7 PG (26-34); Mean Corpuscular Volume 85.2 fL (80-100); Monocytes Absolute Auto 600 /uL (0-900); Monocytes Percent Auto 9.4 % (3-14); Neutrophils Absolute Auto 4700 /uL (1500-7000); Neutrophils Percent Auto 72.9 % (50-75); Platelet Count 300 X10^3/uL (150-400); Red Blood Cell Count 4.16 X10^6/uL (4.5-5.9); Red Cell Distribution Width 14.9 % (11.6-14.8); White Blood Cell Count 6.4 X10^3/uL (4.5-11.0)
[2021-05-02 12:38] LABS: Hemoglobin A1C% w Est Avg Glu 6.4 % (4.0-6.0)
[2021-05-02 12:55] LABS: Alanine Aminotransferase 19 IU/L (<50); Albumin 3.1 g/dL (3.5-5.0); Albumin Globulin Ratio 1.2 (1.0-2.8); Alkaline Phosphatase 69 U/L (38-126); Aspartate Aminotransferase 28 IU/L (17-59); BUN Creatinine Ratio 16.4 (6-22); Bilirubin Total 0.5 mg/dL (0.2-1.3); Blood Urea Nitrogen 29 mg/dL (9-20); Calcium 8.9 mg/dL (8.4-10.2); Carbon Dioxide 25 mmol/L (22-32); Chloride 108 mmol/L (98-107); Estimated Glomerular Filt Rate 37.8 mL/min (>60); Globulin 2.6 g/dL (1.7-4.1); Glucose 117 mg/dL (80-110); HEMOLYSIS < 15 (0-50); Potassium 4.2 mmol/L (3.4-5.1); Sodium 140 mmol/L (137-145); Total Protein 5.7 g/dL (6.3-8.2)
[2021-05-02 13:28] LABS: TSH w/ Reflex to FT4 8.79 uIU/mL (0.47-4.68)
[2021-05-02 13:57] LABS: Free T4, Direct Thyroxine 1.09 ng/dL (0.78-2.19)
[2021-05-02 14:08] LABS: Creatinine Urine Random 67.6 mg/dL
[2021-05-02 16:59] LABS: Microalbumi Creatinin Ratio Ur 16050.2 ug/mg CR (<30)
== END ==
PROVIDERS: PCP Family Medicine; Referring Provider Family Medicine; Visit Provider Family Medicine
DX: D64.9 Anemia, unspecified (principal); E11.21 Type 2 diabetes mellitus with diabetic nephropathy; E78.5 Hyperlipidemia, unspecified; R09.89 Other specified symptoms and signs involving the circulatory and respiratory systems
CPT/HCPCS: 36415; 80053; 82043; 82570; 83036; 84439; 84443; 85025

== ENCOUNTER → 2021-05-26 10:55 | Outpatient (CLI) | payer MEDICARE, SELFPAY ==
[2021-05-26 11:47] LABS: Add Manual Diff / Slide Review NO; Basophils Absolute Auto 0 /uL (0-100); Basophils Percent Auto 0.5 % (0-2); Eosinophils Absolute Auto 100 /uL (0-450); Eosinophils Percent Auto 1.2 % (2-4); Hemoglobin 11.7 g/dL (13.5-17.5); Lymphocytes Absolute Auto 800 /uL (1100-4500); Mean Corpuscular HGB Conc 33.5 % (30-36); Mean Corpuscular Hemoglobin 28.3 PG (26-34); Mean Corpuscular Volume 84.5 fL (80-100); Monocytes Absolute Auto 500 /uL (0-900); Monocytes Percent Auto 8.2 % (3-14); Neutrophils Absolute Auto 4400 /uL (1500-7000); Neutrophils Percent Auto 76.1 % (50-75); Platelet Count 276 X10^3/uL (150-400); Red Blood Cell Count 4.14 X10^6/uL (4.5-5.9); Red Cell Distribution Width 15.2 % (11.6-14.8); White Blood Cell Count 5.8 X10^3/uL (4.5-11.0)
[2021-05-26 12:15] LABS: Alanine Aminotransferase 22 IU/L (<50); Albumin 2.8 g/dL (3.5-5.0); Albumin Globulin Ratio 1.1 (1.0-2.8); Alkaline Phosphatase 74 U/L (38-126); Aspartate Aminotransferase 33 IU/L (17-59); BUN Creatinine Ratio 11.7 (6-22); Bilirubin Total 0.4 mg/dL (0.2-1.3); Blood Urea Nitrogen 22 mg/dL (9-20); Calcium 8.7 mg/dL (8.4-10.2); Carbon Dioxide 25 mmol/L (22-32); Chloride 110 mmol/L (98-107); Estimated Glomerular Filt Rate 35.3 mL/min (>60); Globulin 2.6 g/dL (1.7-4.1); Glucose 127 mg/dL (80-110); HEMOLYSIS < 15 (0-50); Potassium 4.2 mmol/L (3.4-5.1); Sodium 139 mmol/L (137-145); Total Protein 5.4 g/dL (6.3-8.2)
[2021-05-26 12:32] LABS: TSH w/ Reflex to FT4 7.64 uIU/mL (0.47-4.68)
== END ==
PROVIDERS: PCP Family Medicine; Referring Provider Family Medicine; Visit Provider Family Medicine
DX: E11.21 Type 2 diabetes mellitus with diabetic nephropathy (principal); N04.9 Nephrotic syndrome with unspecified morphologic changes; N50.89 Other specified disorders of the male genital organs
CPT/HCPCS: 36415; 80053; 84439; 84443; 85025

== ENCOUNTER → 2021-07-24 10:54 | Outpatient (CLI) | payer MEDICARE, SELFPAY ==
[2021-07-24 12:11] LABS: Alanine Aminotransferase 19 IU/L (<50); Albumin 2.6 g/dL (3.5-5.0); Alkaline Phosphatase 54 U/L (38-126); Aspartate Aminotransferase 31 IU/L (17-59); BUN Creatinine Ratio 15.4 (6-22); Bilirubin Total 0.4 mg/dL (0.2-1.3); Blood Urea Nitrogen 30 mg/dL (9-20); Calcium 8.1 mg/dL (8.4-10.2); Carbon Dioxide 27 mmol/L (22-32); Chloride 111 mmol/L (98-107); Estimated Glomerular Filt Rate 33.8 mL/min (>60); Globulin 2.7 g/dL (1.7-4.1); Glucose 83 mg/dL (80-110); HEMOLYSIS < 15 (0-50); Potassium 3.5 mmol/L (3.4-5.1); Sodium 140 mmol/L (137-145); Total Protein 5.3 g/dL (6.3-8.2)
[2021-07-24 12:20] LABS: HEMOLYSIS 45 (0-50); Iron 53 ug/dL (49-181)
[2021-07-24 12:30] LABS: Percent Iron Saturation 22 % (20-50); Total Iron Binding Capacity 243 ug/dL (261-462); Transferrin 188 mg/dL (206-381)
[2021-07-24 12:46] LABS: Ferritin 221 ng/mL (18-464)
[2021-07-24 13:00] LABS: Vitamin B12 Reflex MMA if <400 771 pg/mL (239-931)
[2021-07-24 14:54] LABS: TSH w/ Reflex to FT4 8.03 uIU/mL (0.47-4.68)
[2021-07-24 15:21] LABS: Free T4, Direct Thyroxine 1.27 ng/dL (0.78-2.19)
== END ==
PROVIDERS: PCP Family Medicine; Referring Provider Family Medicine; Visit Provider Family Medicine
DX: E11.21 Type 2 diabetes mellitus with diabetic nephropathy (principal); E66.01 Morbid (severe) obesity due to excess calories; E78.5 Hyperlipidemia, unspecified; N50.89 Other specified disorders of the male genital organs; R09.89 Other specified symptoms and signs involving the circulatory and respiratory systems; I87.2 Venous insufficiency (chronic) (peripheral); D64.9 Anemia, unspecified
CPT/HCPCS: 36415; 80053; 82607; 82728; 83540; 83550; 84439; 84443

== ENCOUNTER → 2021-08-26 12:52 | Outpatient (CLI) | payer MEDICARE, SELFPAY ==
[2021-08-26 15:50] LABS: BUN Creatinine Ratio 18.5 (6-22); Blood Urea Nitrogen 33 mg/dL (9-20); Calcium 8.2 mg/dL (8.4-10.2); Carbon Dioxide 29 mmol/L (22-32); Chloride 109 mmol/L (98-107); Estimated Glomerular Filt Rate 37.5 mL/min (>60); Glucose 111 mg/dL (80-110); HEMOLYSIS 19 (0-50); Potassium 3.4 mmol/L (3.4-5.1); Sodium 141 mmol/L (137-145)
== END ==
PROVIDERS: PCP Family Medicine; Referring Provider Internal Medicine Cardiovascular Disease; Visit Provider Internal Medicine Cardiovascular Disease
DX: E11.21 Type 2 diabetes mellitus with diabetic nephropathy (principal); Z79.4 Long term (current) use of insulin; R09.89 Other specified symptoms and signs involving the circulatory and respiratory systems; R60.9 Edema, unspecified
CPT/HCPCS: 36415; 80048

== ENCOUNTER → 2021-09-08 11:43 | Outpatient (CLI) | payer MEDICARE, SELFPAY ==
[2021-09-08 12:45] LABS: COVID19 -Nasal RAPID Negative (Negative)
[2021-09-08 13:06] LABS: Hematocrit 34.3 % (41-53); Hemoglobin 11.3 g/dL (13.5-17.5)
[2021-09-08 13:15] LABS: BUN Creatinine Ratio 16.3 (6-22); Blood Urea Nitrogen 35 mg/dL (9-20); Calcium 8.1 mg/dL (8.4-10.2); Carbon Dioxide 32 mmol/L (22-32); Chloride 106 mmol/L (98-107); Estimated Glomerular Filt Rate 32 mL/min (>60); Glucose 137 mg/dL (80-110); HEMOLYSIS < 15 (0-50); Potassium 4.3 mmol/L (3.4-5.1); Sodium 139 mmol/L (137-145)
[2021-09-08 15:22] LABS: Creatinine Urine Random 20.1 mg/dL
[2021-09-08 16:00] LABS: Microalbumi Creatinin Ratio Ur 16915.4 ug/mg CR (<30)
== END ==
PROVIDERS: Internal Medicine Nephrology; PCP Family Medicine; Visit Provider Family Medicine Sleep Medicine
DX: Z20.822 Contact with and (suspected) exposure to COVID-19 (principal)
CPT/HCPCS: 36415; 80048; 82043; 82570; 85014; 85018; 87635; C9803

== ENCOUNTER → 2021-09-09 10:30 | Outpatient (CLI) | payer MEDICARE, SELFPAY ==
--- NOTE | 2021-09-10 11:41 | PM.TREADMILL ---
Cardiac Stress Test Report Referral & Results Indication: a fib Rest ECG: RBB SINUS RHYTHM Procedure Note: SARA SCAN Impression: AFTER SARA INJ HAD MINIMAL DYSPNEA; NO CHEST DISCOMFORT; BASELINE ECG RBBB SINUS RHYTHM; NONSPECIFIC ST ABNORMALITIES; NO SIGNIFICANT ST CHANGES AFTER SARA INJ COMPARED TO BASELINE. OCCASIONAL PVCS AND RARE PAC. NO AMINOPH NEEDED. MIBI SCAN PENDING. RECREATION PROGRAM COORDINATOR TO REVIEW; JERARDO ARREOLA Please note: Actual ECG tracings can be found in the PACS system.
--- NOTE | 2021-09-10 19:08 | DI.NM.S_ITS ---
DATE OF SERVICE: 09/09/2021 PROCEDURE: Pharmacological perfusion study. INDICATION: AFib with underlying hypertension, diabetes mellitus and chronic kidney disease. RADIOPHARMACEUTICAL: 25.3 millicurie technetium-99m Myoview IV was injected at stress and 25.1 millicurie technetium-99m Myoview IV was injected at rest. CARDIAC STRESS: The patient underwent IV Lexiscan perfusion study under the supervision of an attending staff. The patient was in AFib with underlying right bundle branch block. During stress, the patient had some nonspecific ST changes, as well as some PVCs without any ventricular tachycardia. No obvious new ischemic changes. No chest pain. The patient had some dyspnea. RAW DATA: Increased subdiaphragmatic activity. The patient's weight is 261 pounds. The stress LV ejection fraction reported to be 65 percent without any obvious wall motion abnormalities. Resting ejection fraction reported to be 54 percent. Resting end-diastolic volume 163 mL, suggestive of dilated LV. TID ratio 1.01, which is within normal limits. Lung/heart ratio 0.40, which is within normal limits. MYOCARDIAL PERFUSION SCAN: Please note that there are no stress prone images. Stress supine and resting supine images were compared to each other. Resting supine images revealed small to moderate size, moderate to severely decreased perfusion of predominantly basal inferolateral wall with mildly decreased perfusion of the mid inferolateral wall, as well as mildly decreased perfusion of distal anteroseptum. During stress supine images, there was large size, severely decreased perfusion of inferolateral wall, inferoapex, as well as mildly decreased perfusion of distal anteroseptum. CONCLUSION: This is an abnormal myocardial perfusion study consistent with severe infarction of basal inferolateral wall with significant reversible ischemia involving mid to distal inferolateral wall and inferoapex. There is also fixed distal anteroseptal defect, suggestive of distal anteroseptal infarction. There were no stress prone images. The summed resting score is 3 and summed stress score 11 with some difference score 8. Discussed the finding with Dr. Dan. Raymundo Truong - ARVIN/romeo/zia doc#: [id number]/job#: [id number] dd: 09/10/2021 17:18:00 dt: 09/10/2021 18:47:00 DICTATING MD/COPIES TO: Arina Salazar MD COPIES MNE: SERENA;
== END ==
PROVIDERS: PCP Family Medicine; Referring Provider Family Medicine; Visit Provider Family Medicine
DX: R94.39 Abnormal result of other cardiovascular function study (principal); I48.91 Unspecified atrial fibrillation; R09.89 Other specified symptoms and signs involving the circulatory and respiratory systems; E11.22 Type 2 diabetes mellitus with diabetic chronic kidney disease; I12.9 Hypertensive chronic kidney disease with stage 1 through stage 4 chronic kidney disease, or unspecified chronic kidney disease; N18.9 Chronic kidney disease, unspecified
CPT/HCPCS: 78452; 93017; A9502; J2785

== ENCOUNTER → 2021-09-11 09:04 | Outpatient (CLI) | payer MEDICARE, SELFPAY ==
--- NOTE | 2021-09-11 09:06 | DI.ECHO.S_ITS ---
[facility] +---------+ : : [address] : : : : [id number] : : : : Phone: [phone]+ Echocardiogram Report + + :Name: RITA GIRARD Study Date: 09/11/2021 Height: 73 in : :[facility] ReadingLocation: Weight: 222 lb : : Gender: Male BSA: 2.2 m2 : :: 1945 Age: 75 yrs BP: 193/81 mmHg: :Reason For Study: EDEMA : :Ordering Physician: Tova : :Devi Dan Performed By: Oj Darnell : :Referring: TOVA DAN : + + Interpretation Summary 1) Mildly increased left ventricular thickness (concentric) with normal size, normal wall motion, and normal systolic function (EF 55-60%). 2) Normal right ventricular size and function. 3) No significant valvular abnormalities. 4) The right ventricular systolic pressure is estimated to be at least 57 mmHg based on an estimated right atrial pressure of 15 mm Hg. 5) Severe hypertension present during the study (BP 193/81mm Hg). 6) Compared to the Echo done 06/18/2019, pulmonary hypertension is present on this study. Procedure: A two-dimensional transthoracic echocardiogram with color flow and Doppler was performed. The study quality was technically adequate. Comparison is made with the echocardiogram of 06/18/2019. Left Ventricle: The left ventricle is normal in size. There is mild concentric left ventricular hypertrophy. Left ventricular systolic function is normal. The ejection fraction is estimated to be 55-60%. There are no focal wall motion abnormalities. Diastolic function could not be accurately assessed due to unobtainable data. Right Ventricle: The right ventricle is normal in size and function. Atria: The left atrium is moderately dilated. The interatrial septum grossly appears intact with no obvious evidence for an atrial septal defect. Mitral Valve: There is mild mitral annular calcification. There is mild mitral regurgitation. Aortic Valve: There is moderate aortic valve sclerosis. There is no aortic valve stenosis. No aortic regurgitation is present. Tricuspid Valve: The tricuspid valve is normal in structure and function. There is mild tricuspid regurgitation. The right ventricular systolic pressure is estimated to be at least 57 mmHg based on an estimated right atrial pressure of 15 mm Hg. Pulmonic Valve: The pulmonic valve is not well seen, but is grossly normal. There is no pulmonic valvular regurgitation. Great Vessels: The aortic root is normal size. The dimensions of the ascending aorta are normal. The IVC is dilated (diameter is greater than 2.1 cm) and it collapses less than 50% with a sniff. This suggests a high right atrial pressure of 15 mm Hg. Pericardium/ Pleura There is no pericardial effusion. There is no pleural effusion. MMode/2D Measurements & Calculations LVIDd: 5.1 cm LVOT diam: 2.2 cm LVIDs: 3.6 cm Ao root diam: 3.3 cm FS: 29.4 % asc Aorta Diam: 3.1 cm IVSd: 1.3 cm LVPWd: 1.4 cm LV trimble. diameter/BSA (cm/m^2): 2.3 LV sys. diameter/BSA (cm/m^2): 1.6 LA dimension: 4.2 cm RA long axis: 6.6 cm LA A2 area: 26.4 cm2 LA A4 area: 28.4 cm2 LA length (vol): 6.5 cm LA vol: 98.4 ml LA vol index: 43.7 ml/m2 TAPSE_phl: 2.8 cm Doppler Measurements & Calculations Ao V2 max: 129.0 cm/sec LVOT Max Dillon: 101.0 cm/sec Ao V2 mean: 92.4 cm/sec LV V1 max P.1 mmHg Ao max P.0 mmHg LV V1 VTI: 23.6 cm Ao mean P.0 mmHg BERTRAM(I,D): 3.1 cm2 Ao V2 VTI: 28.5 cm BERTRAM(V,D): 3.0 cm2 sev ratio: 0.83 BERTRAM indexed to BSA (cm^2/m^2): 1.4 MV E max dillon: 115.0 cm/sec TR max dillon: 324.0 cm/sec Med Peak E' Dillon: 6.1 cm/sec TR max P.0 mmHg E/E' med: 18.9 Lat Peak E' Dillon: 11.5 cm/sec E/E' lat: 10.0 E/e' average: 14.4 MV dec time: 0.21 sec SV(LVOT): 89.7 ml AV VR_phl: 0.78 BERTRAM(VTI)/BSA_phl: 1.4 MV P1/2t-pr_phl: 61.0 msec Reading Physician:11:19 AM
== END ==
PROVIDERS: PCP Family Medicine; Referring Provider Internal Medicine Cardiovascular Disease; Visit Provider Internal Medicine Cardiovascular Disease
DX: R09.89 Other specified symptoms and signs involving the circulatory and respiratory systems (principal); R60.0 Localized edema; I08.3 Combined rheumatic disorders of mitral, aortic and tricuspid valves
CPT/HCPCS: 93306; Q9957

== ENCOUNTER → 2021-09-18 13:21 | Outpatient (CLI) | payer MEDICARE, SELFPAY ==
[2021-09-18 14:13] LABS: Hematocrit 32.7 % (41-53); Hemoglobin 10.9 g/dL (13.5-17.5)
[2021-09-18 14:56] LABS: BUN Creatinine Ratio 18.6 (6-22); Blood Urea Nitrogen 37 mg/dL (9-20); Carbon Dioxide 29 mmol/L (22-32); Chloride 109 mmol/L (98-107); Estimated Glomerular Filt Rate 35 mL/min (>60); Glucose 181 mg/dL (80-110); HEMOLYSIS < 15 (0-50); Potassium 3.8 mmol/L (3.4-5.1); Sodium 141 mmol/L (137-145)
[2021-09-18 15:22] LABS: Creatinine Urine Random 42.4 mg/dL
[2021-09-18 16:50] LABS: Microalbumi Creatinin Ratio Ur 20966.9 ug/mg CR (<30)
== END ==
PROVIDERS: PCP Family Medicine; Referring Provider Internal Medicine Nephrology; Visit Provider Internal Medicine Nephrology
DX: N18.32 Chronic kidney disease, stage 3b (principal)
CPT/HCPCS: 36415; 80048; 82043; 82570; 85014; 85018

== ENCOUNTER → 2021-10-31 13:46 | Outpatient (CLI) | payer MEDICARE, SELFPAY ==
[2021-10-31 15:41] LABS: Add Manual Diff / Slide Review NO; Basophils Absolute Auto 100 /uL (0-100); Basophils Percent Auto 0.8 % (0-2); Eosinophils Absolute Auto 100 /uL (0-450); Eosinophils Percent Auto 1.8 % (2-4); Hematocrit 35.6 % (41-53); Hemoglobin 11.9 g/dL (13.5-17.5); Lymphocytes Absolute Auto 1100 /uL (1100-4500); Lymphocytes Percent Auto 17.5 % (25-40); Mean Corpuscular HGB Conc 33.3 % (30-36); Mean Corpuscular Hemoglobin 28.9 PG (26-34); Mean Corpuscular Volume 86.7 fL (80-100); Monocytes Absolute Auto 400 /uL (0-900); Monocytes Percent Auto 7.3 % (3-14); Neutrophils Absolute Auto 4500 /uL (1500-7000); Neutrophils Percent Auto 72.6 % (50-75); Platelet Count 319 X10^3/uL (150-400); Red Blood Cell Count 4.11 X10^6/uL (4.5-5.9); Red Cell Distribution Width 13.8 % (11.6-14.8); White Blood Cell Count 6.2 X10^3/uL (4.5-11.0)
[2021-10-31 16:17] LABS: INR 1.3 (0.9-1.3); Prothrombin Time 14.8 SECONDS (10.1-12.7)
[2021-10-31 16:41] LABS: BUN Creatinine Ratio 13.4 (6-22); Blood Urea Nitrogen 27 mg/dL (9-20); Calcium 7.9 mg/dL (8.4-10.2); Carbon Dioxide 34 mmol/L (22-32); Chloride 107 mmol/L (98-107); Estimated Glomerular Filt Rate 34 mL/min (>60); Glucose 144 mg/dL (80-110); HEMOLYSIS < 15 (0-50); Potassium 3.8 mmol/L (3.4-5.1); Sodium 141 mmol/L (137-145)
[2021-11-06 09:34] LABS: Hemoglobin A1C% w Est Avg Glu 6.6 % (4.0-6.0)
== END ==
PROVIDERS: PCP Family Medicine; Referring Provider Internal Medicine Nephrology; Visit Provider Internal Medicine Nephrology
DX: Z01.812 Encounter for preprocedural laboratory examination (principal); N04.9 Nephrotic syndrome with unspecified morphologic changes; N18.32 Chronic kidney disease, stage 3b; Z51.81 Encounter for therapeutic drug level monitoring
CPT/HCPCS: 36415; 80048; 83036; 83516; 85025; 85610

== ENCOUNTER 2022-03-01 09:44 | Inpatient (IN) | payer MEDICARE, SELFPAY ==
[2022-03-01] VITALS (26 sets, daily range): BP systolic 111–175; BP diastolic 58–80; PULSE 73–109; RESP 16–26; TEMP 36.5–36.6; O2SAT 96–99; BMI 25.2
--- NOTE | 2022-03-01 10:00 | DI.RAD.S_ITS ---
PROCEDURE: XR CHEST 1V INDICATIONS: eval for PNA TECHNIQUE: One view of the chest was acquired. COMPARISON: [facility], CR, XR CHEST 1 VIEW, 06/17/2019, 22:33. FINDINGS: Surgical changes and devices: None. Lungs and pleura: No focal infiltrates are seen. No pneumothorax is seen. There is blunting of the right costophrenic angle. There is a stable right mid lung calcified granuloma. Mediastinum: Mediastinal contours appear normal. Heart size is normal. Bones and chest wall: No suspicious bony lesions. Age-appropriate bony degenerative changes are seen. Overlying soft tissues appear unremarkable. IMPRESSION: Likely small right-sided pleural effusion. Prior granulomatous exposure. Dictated by: Wil Cota M.D. on 03/01/2022 at 11:28 Approved by: Wil Cota M.D. on 03/01/2022 at 11:29
[2022-03-01 10:08] LABS: Add Manual Diff / Slide Review NO; Basophils Absolute Auto 0 /uL (0-100); Basophils Percent Auto 0.4 % (0-2); Eosinophils Absolute Auto 0 /uL (0-450); Eosinophils Percent Auto 0.3 % (2-4); Hematocrit 35.8 % (41-53); Hemoglobin 11.7 g/dL (13.5-17.5); Lymphocytes Absolute Auto 200 /uL (1100-4500); Lymphocytes Percent Auto 2.5 % (25-40); Mean Corpuscular HGB Conc 32.8 % (30-36); Mean Corpuscular Hemoglobin 28.5 PG (26-34); Mean Corpuscular Volume 86.8 fL (80-100); Monocytes Absolute Auto 500 /uL (0-900); Monocytes Percent Auto 4.8 % (3-14); Neutrophils Absolute Auto 8800 /uL (1500-7000); Platelet Count 266 X10^3/uL (150-400); Red Blood Cell Count 4.12 X10^6/uL (4.5-5.9); Red Cell Distribution Width 15.3 % (11.6-14.8); White Blood Cell Count 9.6 X10^3/uL (4.5-11.0)
--- NOTE | 2022-03-01 10:12 | ED_ITS ---
HPI - General Adult General Chief complaint: Weakness Stated complaint: weakness Time Seen by Provider: 03/01/22 09:57 Source: patient and EMS Mode of arrival: EMS History of Present Illness HPI narrative: 76-year-old male. Has a history of chronic kidney disease. Is on anticoagulation. Has had a TIA in the past. Has a known history of coronary artery disease. Is on Lasix when he gets above 196 lb. And stops it when he is 195 or below. Is here for evaluation of several issues. Apparently for the past couple weeks he has been progressively more weak. He is also had issues with constipation. Also has issues with urinary incontinence. He states he is urinating frequently. He is not been on Lasix since Wednesday because he is below the 195 lb cut off. This morning the patient was so weak that he could not stand even with his walker. His states that he was saying some confusing things. That all seems to have resolved now. He denies chest pain. No shortness of breath. EMS was called. They found him to be tachycardic and also febrile. Related Data Home Medications Medication Instructions Recorded Confirmed lisinopril 40 mg tablet 40 mg PO DAILY 09/18/20 03/01/22 spironolactone 25 mg tablet 25 mg PO DAILY 11/06/21 03/01/22 acetaminophen 500 mg oral powder 500 mg PO QID PRN Pain (Scale 02/17/22 03/01/22 packet (Tylenol Extra Strength) Score 4-6) coenzyme Q10 100 mg capsule 100 mg PO DAILY 02/17/22 03/01/22 furosemide 20 mg tablet (Lasix) 40 mg PO DAILY 02/17/22 03/01/22 multivit with min-folic 1 tab PO DAILY 02/17/22 03/01/22 acid-lutein 400 mcg-250 mcg chewable tablet (Centrum Silver) ergocalciferol (vitamin D2) 1,250 1 unit PO QWEEK 03/01/22 03/01/22 mcg (50,000 unit) capsule (Vitamin D2) Previous Rx's Medication Instructions Recorded rosuvastatin 20 mg tablet 20 mg PO DAILY #90 tabs 07/30/21 tamsulosin 0.4 mg capsule 0.8 mg PO DAILY #180 caps 07/30/21 apixaban 5 mg tablet 5 mg PO BID #180 tabs 11/06/21 fenofibrate 54 mg tablet 108 mg PO DAILY #180 tabs 11/06/21 oxybutynin chloride 5 mg tablet 5 mg PO BID Urge incontinence #180 11/06/21 tabs carvedilol 12.5 mg tablet 12.5 mg PO BID #90 tabs 12/23/21 cholecalciferol (vitamin D3) 125 125 mcg PO QWEEK #1 cap 02/17/22 mcg (5,000 unit) capsule triamcinolone acetonide 0.1 % 1 applic topical BID #453.6 grams 02/17/22 topical cream Allergies Allergy/AdvReac Type Severity Reaction Status Date / Time Interferons Allergy Severe unknown Verified 03/01/22 12:55 sitagliptin [From Januvia] Allergy Severe unknown Verified 03/01/22 12:55 Latex, Natural Rubber Allergy Unknown Verified 03/01/22 12:55 Review of Systems Review of Systems ROS Unobtainable: All systems reviewed & are unremarkable except as noted in HPI and below Patient History Medical History Bladder cancer BPH loc w urin obs/LUTS History of bladder cancer History of urinary urgency Hyperlipidemia Renal calculus Scrotum swelling Sleep apnea TIA (transient ischemic attack) Urge incontinence Surgical History Hx of circumcision Hx of cystoscopy Hx of hernia repair Social History Smoking Status: Former smoker Smoking Status: Former smoker alcohol intake frequency: 0-2 drinks per day Substance Use Type: does not use Exam Initial Vital Signs Initial Vital Signs: Vital Signs Blood Pressure 135/72 03/01/22 09:46 Const General: cooperative, comfortable and No ill appearing HENMT Head: normal to inspection and normocephalic Chest Chest: normal inspection of the chest Resp Effort & Inspection: normal respiratory effort Auscultation: clear to auscultation bilaterally Cardio Rate: regular rate Rhythm: regular rhythm GI Inspection: normal to inspection and non-distended Palpation: No tender Other: No suprapubic tenderness Skin Other: Venous stasis changes bilateral lower extremities Neuro Speech: speech normal Motor: muscle tone normal throughout Sensory Exam: no sensory deficits noted Other: Patient oriented to person and place but does not know the year. His states that this is baseline for him. Extrem General: capillary refill normal Psych Appearance: grossly normal and well kempt Course Orders Ordered: ED Orders 03/01/22 09:50 Complete Blood Count AUTO DIFF Stat Comprehensive Metabolic Panel Stat Ethanol (ETOH) Stat Lactate (Lactic Acid) Stat Lipase Stat Troponin & CK Cardiac Panel Stat 03/01/22 10:00 XR chest 1V Stat 03/01/22 10:22 US abdomen limited Stat 03/01/22 10:29 COVID19 -Nasal RAPID/Pre-Proc Stat EKG-12 Lead Stat 03/01/22 10:50 Blood Culture Stat NT-proBNP (BNP-Adult 18+) Stat 03/01/22 12:00 Ictotest Urine Stat Urinalysis and Microscopic Stat Urine Culture Stat 03/01/22 12:34 CT abdomen pelvis wo con Stat 03/01/22 15:32 MR abdomen wo/w con Stat 03/01/22 17:42 Consult to General Surgery Stat Discontinued Medications Furosemide (Furosemide 40 Mg/4 Ml Vial) 40 mg IV NOW ONE Stop: 03/01/22 18:09 Last Admin: 03/01/22 18:11 Dose: 40 mg Documented By: RANDY Piperacillin Sod/Tazobactam (Sod 4.5 gm/ Sodium Chloride) 100 mls @ 200 mls/hr IV NOW ONE Stop: 03/01/22 17:16 Last Admin: 03/01/22 18:08 Dose: 200 mls/hr Documented By: RANDY Lidocaine HCl (Lidocaine 2% (Glydo) 6 Ml Gel) 6 ml TOP NOW ONE Stop: 03/01/22 11:11 Last Admin: 03/01/22 11:16 Dose: 6 ml Documented By: RANDY Vital Signs Vital signs: Vital Signs - 8 hr 03/01/22 10:30 03/01/22 10:30 03/01/22 11:03 Temperature 97.7 F Pulse Rate 95 H Respiratory Rate 26 H Blood Pressure 164/72 H Pulse Oximetry 97 03/01/22 11:00 03/01/22 11:00 03/01/22 11:30 Temperature Pulse Rate 92 H 96 H Respiratory Rate 22 Blood Pressure 145/65 H Pulse Oximetry 96 03/01/22 11:45 03/01/22 11:45 03/01/22 12:00 Temperature Pulse Rate 96 H Respiratory Rate 20 Blood Pressure 126/58 L 111/62 Pulse Oximetry 98 03/01/22 12:00 03/01/22 12:30 03/01/22 12:30 Temperature Pulse Rate 96 H 92 H Respiratory Rate 24 Blood Pressure 139/63 Pulse Oximetry 97 98 03/01/22 13:00 03/01/22 13:00 03/01/22 13:30 Temperature Pulse Rate 87 Respiratory Rate 24 Blood Pressure 134/61 131/61 Pulse Oximetry 97 03/01/22 13:30 03/01/22 14:07 03/01/22 14:30 Temperature Pulse Rate 86 86 80 Respiratory Rate 24 20 Blood Pressure Pulse Oximetry 97 99 98 03/01/22 14:37 03/01/22 14:37 03/01/22 15:00 Temperature Pulse Rate 80 Respiratory Rate 23 Blood Pressure 135/80 136/62 Pulse Oximetry 98 03/01/22 15:00 03/01/22 15:30 03/01/22 15:30 Temperature Pulse Rate 78 82 Respiratory Rate 24 25 H Blood Pressure 156/69 H Pulse Oximetry 97 98 03/01/22 16:39 03/01/22 16:48 03/01/22 16:48 Temperature Pulse Rate 80 80 Respiratory Rate 22 Blood Pressure 143/67 H Pulse Oximetry 96 03/01/22 17:00 03/01/22 17:00 03/01/22 17:30 Temperature Pulse Rate 75 Respiratory Rate 25 H Blood Pressure 129/63 135/63 Pulse Oximetry 97 03/01/22 17:30 Temperature Pulse Rate 74 Respiratory Rate 23 Blood Pressure Pulse Oximetry 97 Medical Decision Making Lab Data Lab results reviewed: Yes I reviewed the patient's lab results. Result diagrams: 03/01/22 09:50 03/01/22 09:50 Labs: Lab Results 03/01/22 03/01/22 03/01/22 Range/Units 09:50 09:50 09:50 WBC 9.6 (4.5-11.0) X10^3/uL RBC 4.12 L (4.5-5.9) X10^6/uL Hgb 11.7 L (13.5-17.5) g/dL Hct 35.8 L (41-53) % MCV 86.8 (80-100) fL MCH 28.5 (26-34) PG MCHC 32.8 (30-36) % RDW 15.3 H (11.6-14.8) % Plt Count 266 (150-400) X10^3/uL Neut % (Auto) 92.0 H (50-75) % Lymph % (Auto) 2.5 L (25-40) % Prowers % (Auto) 4.8 (3-14) % Eos % (Auto) 0.3 L (2-4) % Baso % (Auto) 0.4 (0-2) % Neut # (Auto) 8800 H (7808-0034) /uL Lymph # (Auto) 200 L (0204-5694) /uL Prowers # (Auto) 500 (0-900) /uL Eos # (Auto) 0 (0-450) /uL Baso # (Auto) 0 (0-100) /uL Sodium 138 (137-145) mmol/L Potassium 4.7 (3.4-5.1) mmol/L Chloride 101 (98-107) mmol/L Carbon Dioxide 30 (22-32) mmol/L BUN 43 H (9-20) mg/dL Creatinine 2.34 H (0.66-1.25) mg/dL Estimated GFR 28 L (>60) mL/min BUN/Creatinine Ratio 18.4 (6-22) Glucose 139 H (80-110) mg/dL Lactate 1.1 (0.7-2.1) mmol/L Calcium 8.4 (8.4-10.2) mg/dL Total Bilirubin 2.7 H (0.2-1.3) mg/dL AST 555 H (17-59) IU/L ALT 271 H (<50) IU/L Alkaline Phosphatase 309 H (38-126) U/L Total Creatine Kinase (55-170) U/L CK-MB (CK-2) CK-MB (CK-2) Rel Index Troponin I (0.01-0.034) ng/mL NT-Pro-B Natriuret Pep (<450) pg/mL Total Protein 6.3 (6.3-8.2) g/dL Albumin 3.0 L (3.5-5.0) g/dL Globulin 3.3 (1.7-4.1) g/dL Albumin/Globulin Ratio 0.9 L (1.0-2.8) Lipase 1900 H (23-300) U/L Urine Color Urine Appearance Urine pH (4.5-8.0) Ur Specific Hardin (1.000-1.035) Urine Protein (Negative) Urine Glucose (UA) (Negative) g/dL Urine Ketones (NEGATIVE) Urine Occult Blood (Negative) Urine Nitrate (Negative) Urine Bilirubin (NEGATIVE) Ur Bilirubin Confirm (Negative) Urine Urobilinogen (0.2) E.U./dL Ur Leukocyte Esterase (NEGATIVE) Urine RBC (0-5/HPF) Urine WBC (0-5/HPF) Urine Bacteria (None) Ur Culture Indicated? Ethyl Alcohol ( - 10) mg/dL SARS-CoV-2 (PCR) (Negative) 03/01/22 03/01/22 03/01/22 Range/Units 09:50 10:29 10:50 WBC (4.5-11.0) X10^3/uL RBC (4.5-5.9) X10^6/uL Hgb (13.5-17.5) g/dL Hct (41-53) % MCV (80-100) fL MCH (26-34) PG MCHC (30-36) % RDW (11.6-14.8) % Plt Count (150-400) X10^3/uL Neut % (Auto) (50-75) % Lymph % (Auto) (25-40) % Prowers % (Auto) (3-14) % Eos % (Auto) (2-4) % Baso % (Auto) (0-2) % Neut # (Auto) (5314-1152) /uL Lymph # (Auto) (5303-3950) /uL Prowers # (Auto) (0-900) /uL Eos # (Auto) (0-450) /uL Baso # (Auto) (0-100) /uL Sodium (137-145) mmol/L Potassium (3.4-5.1) mmol/L Chloride (98-107) mmol/L Carbon Dioxide (22-32) mmol/L BUN (9-20) mg/dL Creatinine (0.66-1.25) mg/dL Estimated GFR (>60) mL/min BUN/Creatinine Ratio (6-22) Glucose (80-110) mg/dL Lactate (0.7-2.1) mmol/L Calcium (8.4-10.2) mg/dL Total Bilirubin (0.2-1.3) mg/dL AST (17-59) IU/L ALT (<50) IU/L Alkaline Phosphatase (38-126) U/L Total Creatine Kinase 42 L (55-170) U/L CK-MB (CK-2) TNP CK-MB (CK-2) Rel Index TNP Troponin I < 0.012 (0.01-0.034) ng/mL NT-Pro-B Natriuret Pep 5780 H (<450) pg/mL Total Protein (6.3-8.2) g/dL Albumin (3.5-5.0) g/dL Globulin (1.7-4.1) g/dL Albumin/Globulin Ratio (1.0-2.8) Lipase (23-300) U/L Urine Color Urine Appearance Urine pH (4.5-8.0) Ur Specific Hardin (1.000-1.035) Urine Protein (Negative) Urine Glucose (UA) (Negative) g/dL Urine Ketones (NEGATIVE) Urine Occult Blood (Negative) Urine Nitrate (Negative) Urine Bilirubin (NEGATIVE) Ur Bilirubin Confirm (Negative) Urine Urobilinogen (0.2) E.U./dL Ur Leukocyte Esterase (NEGATIVE) Urine RBC (0-5/HPF) Urine WBC (0-5/HPF) Urine Bacteria (None) Ur Culture Indicated? Ethyl Alcohol < 10 ( - 10) mg/dL SARS-CoV-2 (PCR) Negative (Negative) 03/01/22 Range/Units 12:00 WBC (4.5-11.0) X10^3/uL RBC (4.5-5.9) X10^6/uL Hgb (13.5-17.5) g/dL Hct (41-53) % MCV (80-100) fL MCH (26-34) PG MCHC (30-36) % RDW (11.6-14.8) % Plt Count (150-400) X10^3/uL Neut % (Auto) (50-75) % Lymph % (Auto) (25-40) % Prowers % (Auto) (3-14) % Eos % (Auto) (2-4) % Baso % (Auto) (0-2) % Neut # (Auto) (1388-3927) /uL Lymph # (Auto) (5133-5801) /uL Prowers # (Auto) (0-900) /uL Eos # (Auto) (0-450) /uL Baso # (Auto) (0-100) /uL Sodium (137-145) mmol/L Potassium (3.4-5.1) mmol/L Chloride (98-107) mmol/L Carbon Dioxide (22-32) mmol/L BUN (9-20) mg/dL Creatinine (0.66-1.25) mg/dL Estimated GFR (>60) mL/min BUN/Creatinine Ratio (6-22) Glucose (80-110) mg/dL Lactate (0.7-2.1) mmol/L Calcium (8.4-10.2) mg/dL Total Bilirubin (0.2-1.3) mg/dL AST (17-59) IU/L ALT (<50) IU/L Alkaline Phosphatase (38-126) U/L Total Creatine Kinase (55-170) U/L CK-MB (CK-2) CK-MB (CK-2) Rel Index Troponin I (0.01-0.034) ng/mL NT-Pro-B Natriuret Pep (<450) pg/mL Total Protein (6.3-8.2) g/dL Albumin (3.5-5.0) g/dL Globulin (1.7-4.1) g/dL Albumin/Globulin Ratio (1.0-2.8) Lipase (23-300) U/L Urine Color Yellow Urine Appearance Clear Urine pH 7.0 (4.5-8.0) Ur Specific Hardin 1.010 (1.000-1.035) Urine Protein 3+ H (Negative) Urine Glucose (UA) Trace H (Negative) g/dL Urine Ketones Trace H (NEGATIVE) Urine Occult Blood 2+ H (Negative) Urine Nitrate Negative (Negative) Urine Bilirubin 1+ H (NEGATIVE) Ur Bilirubin Confirm Positive H (Negative) Urine Urobilinogen 1.0 (0.2) E.U./dL Ur Leukocyte Esterase Trace H (NEGATIVE) Urine RBC 5-10/hpf H (0-5/HPF) Urine WBC 0-1/hpf (0-5/HPF) Urine Bacteria None seen (None) Ur Culture Indicated? Specimen cultured Ethyl Alcohol ( - 10) mg/dL SARS-CoV-2 (PCR) (Negative) Imaging Data US - abdomen: Radiologist's Impression: [place] [address] Ultrasound Report Signed Patient: Raymundo Truong MR#: [id number] : 1945 Acct:[id number] Age/Sex: 76 / M Date of Service: 03/01/22 Loc: ED Accession Number: [id number] ?? Procedure: US abdomen limited Ordering Provider: Mauricio Chacko D.O. PROCEDURE: US ABDOMEN LIMITED ? INDICATIONS:? RUQ PAIN ? TECHNIQUE:? Real-time focused scanning was performed of the abdomen, with image documentation.? ? COMPARISON:? None. ? FINDINGS:? The liver is enlarged and demonstrates overall normal echogenicity. ? Numerous layering gallstones are seen.? Likely sludge is also seen, although differential diagnosis includes a nonvascular mass.? The gallbladder wall is thickened at 5 mm.? There is pericholecystic fluid and the sonographic Reid sign is positive. ? The distal common bile duct measures nearly 8 mm, which is mildly enlarged. ? There is a 1.4 x 0.7 x 1 cm cyst seen involving the head of the pancreas. ? ? IMPRESSION:? Cholecystitis until proven otherwise, with:? gallstones, a thickened gallbladder wall, pericholecystic fluid, and a positive sonographic Reid sign. ? Within the gallbladder, additional layering sludge can also be seen, although differential diagnosis includes a nonvascular mass. ? Mildly enlarged common bile duct, 8 mm. ? There is a 1.4 cm cystic lesion seen involving the head of the pancreas.? When clinically appropriate, please consider a follow-up dedicated pancreas protocol CT or MRI for further evaluation.? ? Dictated by: Wil Cota M.D. on 03/01/2022 at 10:58 ? ? Approved by: Wil Cota M.D. on 03/01/2022 at 11:01?? Chest x-ray: Radiologist's Impression: [address] [address] XRay Report Signed Patient: Raymundo Truong MR#: [id number] : 1945 Acct:[id number] Age/Sex: 76 / M Date of Service: 03/01/22 Loc: ED Accession Number: [id number] ?? Procedure: XR chest 1V Ordering Provider: Mauricio Chacko D.O. PROCEDURE:? XR CHEST 1V ? INDICATIONS:? eval for PNA ? TECHNIQUE:? One view of the chest was acquired.? ? COMPARISON:? [facility], XR CHEST 1 VIEW, 06/17/2019, 22:33. ? FINDINGS:? ? Surgical changes and devices:? None.? ? Lungs and pleura:? No focal infiltrates are seen. No pneumothorax is seen.? There is blunting of the right costophrenic angle.? There is a stable right mid lung calcified granuloma. ? Mediastinum:? Mediastinal contours appear normal.? Heart size is normal.? ? Bones and chest wall:? No suspicious bony lesions.? Age-appropriate bony degenerative changes are seen. ? Overlying soft tissues appear unremarkable.? IMPRESSION:? Likely small right-sided pleural effusion. ? Prior granulomatous exposure.? ? ? Dictated by: Wil Cota M.D. on 03/01/2022 at 11:28 ? ? Approved by: Wil Cota M.D. on 03/01/2022 at 11:29?? CT scan - abdomen/pelvis: Radiologist's Impression: [place] [address] CT Scan Report Signed Patient: Raymundo Truong MR#: [id number] : 1945 Acct:[id number] Age/Sex: 76 / M Date of Service: 03/01/22 Loc: ED Accession Number: [id number] ?? Procedure: CT abdomen pelvis wo con Ordering Provider: Mauricio Chacko D.O. PROCEDURE:? CT ABDOMEN PELVIS WO CON ? INDICATIONS:? Transaminitis, elevated lipase, history of kidney disease ? TECHNIQUE:? A small amount of contrast (approximately 100 cc) was consumed by the patient before the patient could not tolerate further contrast. 5 mm thick sections acquired from the diaphragms to the symphysis.? 5 mm coronal and sagittal reformats were performed.? For radiation dose reduction, the following was used: ?automated exposure control, adjustment of mA and/or kV according to patient size.? ? COMPARISON:? [facility], XR CHEST 1V, 03/01/2022, 10:56.? [facility], US, US ABDOMEN LIMITED, 03/01/2022, 11:16. ? FINDINGS:? Image quality:? Excellent.? ? ABDOMEN:? Lung bases:? Small bilateral pleural effusions are seen, right larger than left.? Heart size is normal.? ? Solid organs:? Liver is normal in size.? No focal lesions are seen on this noncontrast CT. ? Gallbladder demonstrates layering gallstones.? The gallbladder is prominent size.? Mild gallbladder wall thickening and pericholecystic fluid can be seen, as on series 4, image 19. Biliary dilatation is seen. ? Pancreas is normal in size.? Spleen is normal in size.? No adrenal nodules.? ? Both kidneys are normal in size, without hydronephrosis.? The kidneys demonstrate a somewhat nodular appearance, yet without masses seen by noncontrast CT.? At the inferior pole of the left kidney, there is a nonobstructing 6 mm stone seen. ? Peritoneum and bowel:? The administered oral contrast can be seen within the stomach and the proximal small bowel.? Bowel loops demonstrate normal wall thickness and caliber.? No free fluid or air.? Scattered colonic diverticulosis is seen, without findings of active diverticulitis. ? Nodes and vessels:? No retroperitoneal or mesenteric adenopathy by size criteria.? Aorta and inferior vena cava are normal in size.? Atherosclerotic calcification is noted.? ? Miscellaneous:? No ventral hernias.? ? ? PELVIS:? Genitourinary:? A Verde catheter is seen, which decompresses the bladder.? The prostate is enlarged, measuring 5.7 cm transversely.? ? Miscellaneous:? No inguinal adenopathy.? There is a relatively prominent fat containing right inguinal hernia.? A small fat containing left inguinal hernia is seen. ? Bones:? No suspicious bony lesions.? No vertebral body compression fractures.? Age-appropriate bony degenerative changes are seen.? ? ? IMPRESSION:? Continues suspicion for cholecystitis, which is overall better seen on the recent prior ultrasound. ? Normal appearing liver, without biliary dilatation. ? Nonobstructing 6 mm kidney stone seen. ? There is a nodular appearance seen of the kidneys, yet without focal masses. ? Negative for hydronephrosis. ? There are small bilateral pleural effusions seen, right larger than left. ? ? ? Incidental note is made of: Verde catheter Enlarged prostate ? Dictated by: Wil Cota M.D. on 03/01/2022 at 14:00 ? ? Approved by: Wil Cota M.D. on 03/01/2022 at 14:06 MRCP: Radiologist's Impression: [address] [address] Magnetic Resonance Report Signed Patient: Raymundo Truong MR#: [id number] : 1945 Acct:[id number] Age/Sex: 76 / M Date of Service: 03/01/22 Loc: ED Accession Number: [id number] ?? Procedure: MR abdomen wo/w con Ordering Provider: Mauricio Chacko D.O. PROCEDURE:? MR ABDOMEN WO/W CON ? INDICATIONS:? MRCP ? TECHNIQUE:? Coronal HASTE, axial 2D FLASH in- and [id number]; axial breath-hold T2 FSE with fat saturation from the hepatic dome to the iliac crests.? Oblique coronal thin-sl ice and radial thick slab HASTE through the biliary system.? Dynamic axial VIBE during administration of contrast.? Post-contrast coronal VIBE or 2D FLASH with fat saturation from the hepatic dome to the iliac crests.? Optional diffusion weighted imaging and ADC may be performed.? ? COMPARISON:? [facility], US, US ABDOMEN LIMITED, 03/01/2022, 11:16.? [facility], CT, CT ABDOMEN PELVIS WO CON, 03/01/2022, 12:45. ? FINDINGS:? Image quality:? Excellent.? ? Pancreas and biliary system:? The common bile duct is not dilated, measuring 4-5 mm on this study. ? There is again seen a a cystic lesion within the head of the pancreas.? This measures up to 13 mm.? No definite connection with the pancreatic duct can be seen.? No abnormal enhancement can be seen.? No peripancreatic edema can be seen.? No definite pancreatic ductal abnormalities can be seen. ? Solid organs:? Liver is normal in size and enhancement.? Gallbladder demonstrates layering gallstones.? Minimal pericholecystic fluid can be seen.? Spleen is normal in size and enhancement.? No adrenal nodules.? Kidneys are normal in size and enhancement, without hydronephrosis.? ? Nodes and vessels:? No retroperitoneal or mesenteric adenopathy by size criteria.? Aorta and inferior vena cava are normal in size.? ? Bowel and peritoneum:? Unenhanced bowel loops are normal in caliber throughout.? No free fluid.? ? Lung bases:? Small bilateral pleural effusions are seen, right larger than left..? Heart size is normal.? ? Bones and soft tissues:? No ventral hernias.? Bone marrow is normal in overall signal.? ? ? IMPRESSION:? There are again seen gallstones, with minimal pericholecystic fluid. ? There is a 13 mm cyst seen within the head of the pancreas, without associated enhancement.? Although nonspecific, an IPMN is felt most likely. ? No biliary dilatation is seen. ? Small bilateral pleural effusions are seen, right larger than left. ? Dictated by: Wil Cota M.D. on 03/01/2022 at 16:01 ? ? Approved by: Wil Cota M.D. on 03/01/2022 at 16:08 ECG Data Attestation: I personally reviewed and interpreted this ECG as follows: Interpretation: Atrial fibrillation Ventricular rate [address] T wave changes MDM Narrative Medical decision making narrative: Patient has not been hypotensive. Afebrile here. No leukocytosis. Has an elevation in LFTs and bilirubin and also lipase. Right upper quadrant ultrasound does show signs concerning for acute cholecystitis. Given the finding of the pancreatic head which potentially is cyst a CT scan was ordered. CT scan also also points towards gallbladder pathology. Discussed the case with Dr. Greene. Given his labs he asked for an MRCP which resulted in no indicat ion of common bile duct stone. Patient's kidney function is at baseline. Verde catheters placed secondary to the fact that his initial bladder scan showed greater than 500 cc of urine. He does have a history with prostate enlargement. Did discuss the case with Dr. Harrington once again who asked that the patient be admitted under the medicine service. Discussed the case with Dr. Rutherford with Internal Medicine who will admit for further evaluation and treatment. Discussed the need for this with the patient his at bedside. They expressed understanding and agreement. Discharge Plan Departure Patient Disposition: Admitted As Inpatient Clinical Impression: Acute cholecystitis, Acute urinary retention, Hyperbilirubinemia Admit Date/Time: 03/01/22 17:44 Admit Provider: Jesus Rutherford
[2022-03-01 10:13] LABS: Alanine Aminotransferase 271 IU/L (<50); Albumin Globulin Ratio 0.9 (1.0-2.8); Alkaline Phosphatase 309 U/L (38-126); Aspartate Aminotransferase 555 IU/L (17-59); BUN Creatinine Ratio 18.4 (6-22); Bilirubin Total 2.7 mg/dL (0.2-1.3); Blood Urea Nitrogen 43 mg/dL (9-20); Calcium 8.4 mg/dL (8.4-10.2); Carbon Dioxide 30 mmol/L (22-32); Chloride 101 mmol/L (98-107); Estimated Glomerular Filt Rate 28 mL/min (>60); Globulin 3.3 g/dL (1.7-4.1); Glucose 139 mg/dL (80-110); HEMOLYSIS < 15 (0-50); Lipase 1900 U/L (23-300); Potassium 4.7 mmol/L (3.4-5.1); Sodium 138 mmol/L (137-145); Total Protein 6.3 g/dL (6.3-8.2)
[2022-03-01 10:14] LABS: Creatine Kinase 42 U/L (55-170); Ethanol (ETOH) < 10 mg/dL; Lactate (Lactic Acid) 1.1 mmol/L (0.7-2.1)
--- NOTE | 2022-03-01 10:22 | DI.US.S_ITS ---
PROCEDURE: US ABDOMEN LIMITED INDICATIONS: RUQ PAIN TECHNIQUE: Real-time focused scanning was performed of the abdomen, with image documentation. COMPARISON: None. FINDINGS: The liver is enlarged and demonstrates overall normal echogenicity. Numerous layering gallstones are seen. Likely sludge is also seen, although differential diagnosis includes a nonvascular mass. The gallbladder wall is thickened at 5 mm. There is pericholecystic fluid and the sonographic Reid sign is positive. The distal common bile duct measures nearly 8 mm, which is mildly enlarged. There is a 1.4 x 0.7 x 1 cm cyst seen involving the head of the pancreas. IMPRESSION: Cholecystitis until proven otherwise, with: gallstones, a thickened gallbladder wall, pericholecystic fluid, and a positive sonographic Reid sign. Within the gallbladder, additional layering sludge can also be seen, although differential diagnosis includes a nonvascular mass. Mildly enlarged common bile duct, 8 mm. There is a 1.4 cm cystic lesion seen involving the head of the pancreas. When clinically appropriate, please consider a follow-up dedicated pancreas protocol CT or MRI for further evaluation. Dictated by: Wil Cota M.D. on 03/01/2022 at 10:58 Approved by: Wil Cota M.D. on 03/01/2022 at 11:01
[2022-03-01 10:24] LABS: Troponin I < 0.012 ng/mL (0.01-0.034)
[2022-03-01] MEDS: LIDOCAINE 2% (GLYDO) 6 ML GEL TOP (11:16)
[2022-03-01 11:46] LABS: COVID19 -Nasal RAPID Negative (Negative)
[2022-03-01 12:33] LABS: Appearance Urine UA CLEAR; Bilirubin Urine UA 1+ (NEGATIVE); Color Urine UA YELLOW; Glucose Urine UA TRACE g/dL (Negative); Ketones Urine UA TRACE (NEGATIVE); Leukocyte Esterase Urine UA TRACE (NEGATIVE); Nitrite Urine UA NEGATIVE (Negative); Occult Blood Urine UA 2+ (Negative); Protein Urine UA 3+ (Negative)
--- NOTE | 2022-03-01 12:34 | DI.CT.S_ITS ---
PROCEDURE: CT ABDOMEN PELVIS WO CON INDICATIONS: Transaminitis, elevated lipase, history of kidney disease TECHNIQUE: A small amount of contrast (approximately 100 cc) was consumed by the patient before the patient could not tolerate further contrast. 5 mm thick sections acquired from the diaphragms to the symphysis. 5 mm coronal and sagittal reformats were performed. For radiation dose reduction, the following was used: automated exposure control, adjustment of mA and/or kV according to patient size. COMPARISON: [facility], CR, XR CHEST 1V, 03/01/2022, 10:56. [facility], US, US ABDOMEN LIMITED, 03/01/2022, 11:16. FINDINGS: Image quality: Excellent. ABDOMEN: Lung bases: Small bilateral pleural effusions are seen, right larger than left. Heart size is normal. Solid organs: Liver is normal in size. No focal lesions are seen on this noncontrast CT. Gallbladder demonstrates layering gallstones. The gallbladder is prominent size. Mild gallbladder wall thickening and pericholecystic fluid can be seen, as on series 4, image 19. Biliary dilatation is seen. Pancreas is normal in size. Spleen is normal in size. No adrenal nodules. Both kidneys are normal in size, without hydronephrosis. The kidneys demonstrate a somewhat nodular appearance, yet without masses seen by noncontrast CT. At the inferior pole of the left kidney, there is a nonobstructing 6 mm stone seen. Peritoneum and bowel: The administered oral contrast can be seen within the stomach and the proximal small bowel. Bowel loops demonstrate normal wall thickness and caliber. No free fluid or air. Scattered colonic diverticulosis is seen, without findings of active diverticulitis. Nodes and vessels: No retroperitoneal or mesenteric adenopathy by size criteria. Aorta and inferior vena cava are normal in size. Atherosclerotic calcification is noted. Miscellaneous: No ventral hernias. PELVIS: Genitourinary: A Verde catheter is seen, which decompresses the bladder. The prostate is enlarged, measuring 5.7 cm transversely. Miscellaneous: No inguinal adenopathy. There is a relatively prominent fat containing right inguinal hernia. A small fat containing left inguinal hernia is seen. Bones: No suspicious bony lesions. No vertebral body compression fractures. Age-appropriate bony degenerative changes are seen. IMPRESSION: Continues suspicion for cholecystitis, which is overall better seen on the recent prior ultrasound. Normal appearing liver, without biliary dilatation. Nonobstructing 6 mm kidney stone seen. There is a nodular appearance seen of the kidneys, yet without focal masses. Negative for hydronephrosis. There are small bilateral pleural effusions seen, right larger than left. Incidental note is made of: Verde catheter Enlarged prostate Dictated by: Wil Cota M.D. on 03/01/2022 at 14:00 Approved by: Wil Cota M.D. on 03/01/2022 at 14:06
[2022-03-01 12:48] LABS: Bacteria Urine None Seen; Culture Indicated Urine Specimen Cultured; Ictotest Urine Positive (Negative); RBC Urine 5-10/HPF (0-5/HPF); WBC Urine 0-1/HPF (0-5/HPF)
--- NOTE | 2022-03-01 13:29 | PC.NURSE ---
pt drank only a few cc of oral contrast. states he does not want anymore to drink. dr. maxwell aware,
--- NOTE | 2022-03-01 15:32 | DI.MRI.S_ITS ---
PROCEDURE: MR ABDOMEN WO/W CON INDICATIONS: MRCP TECHNIQUE: Coronal HASTE, axial 2D FLASH in- and [id number]; axial breath-hold T2 FSE with fat saturation from the hepatic dome to the iliac crests. Oblique coronal thin-slice and radial thick slab HASTE through the biliary system. Dynamic axial VIBE during administration of contrast. Post-contrast coronal VIBE or 2D FLASH with fat saturation from the hepatic dome to the iliac crests. Optional diffusion weighted imaging and ADC may be performed. COMPARISON: [facility], US, US ABDOMEN LIMITED, 03/01/2022, 11:16. [facility], CT, CT ABDOMEN PELVIS WO CON, 03/01/2022, 12:45. FINDINGS: Image quality: Excellent. Pancreas and biliary system: The common bile duct is not dilated, measuring 4-5 mm on this study. There is again seen a a cystic lesion within the head of the pancreas. This measures up to 13 mm. No definite connection with the pancreatic duct can be seen. No abnormal enhancement can be seen. No peripancreatic edema can be seen. No definite pancreatic ductal abnormalities can be seen. Solid organs: Liver is normal in size and enhancement. Gallbladder demonstrates layering gallstones. Minimal pericholecystic fluid can be seen. Spleen is normal in size and enhancement. No adrenal nodules. Kidneys are normal in size and enhancement, without hydronephrosis. Nodes and vessels: No retroperitoneal or mesenteric adenopathy by size criteria. Aorta and inferior vena cava are normal in size. Bowel and peritoneum: Unenhanced bowel loops are normal in caliber throughout. No free fluid. Lung bases: Small bilateral pleural effusions are seen, right larger than left.. Heart size is normal. Bones and soft tissues: No ventral hernias. Bone marrow is normal in overall signal. IMPRESSION: There are again seen gallstones, with minimal pericholecystic fluid. There is a 13 mm cyst seen within the head of the pancreas, without associated enhancement. Although nonspecific, an IPMN is felt most likely. No biliary dilatation is seen. Small bilateral pleural effusions are seen, right larger than left. Dictated by: Wil Cota M.D. on 03/01/2022 at 16:01 Approved by: Wil Cota M.D. on 03/01/2022 at 16:08
[2022-03-01 18:04] LABS: NT-proBNP (BNP-Adult 18+) 5780 pg/mL (<450)
[2022-03-01] MEDS: PIPERACILLIN/TAZO 4.5 GM in SODIUM CHLORIDE 0.9% 100 ML IV (18:08)
[2022-03-01] MEDS: FUROSEMIDE 40 MG/4 ML VIAL IV (18:11)
--- NOTE | 2022-03-01 19:08 | DI.ECHO.S_ITS ---
[facility] +---------+ : : [address] : : : : [id number] : : : : Phone: [phone] Echocardiogram Report + + :Name: RITA GIRARD Study Date: 03/02/2022 Height: 73 in : :[facility] ReadingLocation: Weight: 191 lb : : Gender: Male BSA: 2.1 m2 : :: 1945 Age: 76 yrs BP: 143/74 mmHg: :Reason For Study: VOLUME OVERLOAD, ASSESS EF : :Ordering Physician: LILIAN, : :COURTNEY LORENZ Performed By: Bridget Cabrera : :Referring: COURTNEY QUINTANA : + + Interpretation Summary The left ventricle is normal in size. There is mild concentric left ventricular hypertrophy. The ejection fraction is estimated to be 60-65%. Pulmonary artery pressures cannot be estimated because of the lack of a measurable TR jet velocity but the IVC suggests a CVP of around 8 mmHg. Procedure: A two-dimensional transthoracic echocardiogram with color flow and Doppler was performed in limited views only to assess Ejection Fraction. The study quality was technically adequate. Comparison is made with the echocardiogram of 09/11/2021. Left Ventricle: The left ventricle is normal in size. There is mild concentric left ventricular hypertrophy. The ejection fraction is estimated to be 60-65%. Right Ventricle: The right ventricle is normal in size and function. Tricuspid Valve: Pulmonary artery pressures cannot be estimated because of the lack of a measurable TR jet velocity but the IVC suggests a CVP of around 8 mmHg. Great Vessels: The IVC is dilated (diameter is greater than 2.1 cm) yet it collapses greater than 50% with a sniff. This suggests a right atrial pressure of 8 mm Hg. Pericardium/ Pleura There is no pericardial effusion. There is no pleural effusion. MMode/2D Measurements & Calculations LVIDd: 5.1 cm LA A2 area: 24.4 cm2 LVIDs: 3.2 cm LA A4 area: 25.7 cm2 FS: 37.9 % LA length (vol): 6.3 cm IVSd: 1.4 cm LA vol: 84.5 ml LVPWd: 1.1 cm LA vol index: 40.1 ml/m2 LV trimble. diameter/BSA (cm/m^2): 2.4 LV sys. diameter/BSA (cm/m^2): 1.5 RA long axis: 6.5 cm RVD1 (basal): 3.8 cm RA area: 26.5 cm2 RVD2 (mid): 3.6 cm RA vol: 91.3 ml TAPSE: 1.8 cm RA : 43.3 ml/m2 IVC diam: 2.3 cm Doppler Measurements & Calculations TR max rae: 274.9 cm/sec TR max P.2 mmHg Reading Physician:EDSON
[2022-03-01 20:20] LABS: Troponin I 0.062 ng/mL (0.01-0.034)
--- NOTE | 2022-03-01 20:23 | P.HP_ITS ---
History of Present Illness History of Present Illness Date Patient Seen: 03/01/22 Time Patient Seen: 20:23 Chief complaint: Abdominal pain, reported confusion Narrative: Raymundo Truong is a pleasant 76 y.o. former smoker with diet controlled diabetes, CKD stage 3, history of a TIA anticoagulated on apixaban, history of prostate cancer, HFpEF, presented to the ED at the request of his who stated he had thrown up this am, and was confused. He does not recall being confused, but states he has had epigastric abdmominal pain, exposive diarrhea to the point of being incontinent of stool which is new for him, denies seeing blood in his stool, and does not recall vomiting. He is a little tangential with his history. He has been on a weight loss program stating the water pills have been largely responsible. States he previously weighed 340 lbs, is now 194 lbs which he takes lasix if his weight exceeds 195 lbs and states he has lost 80 lbs in the last couple of months, intentionally. In the emergency department he was administered 40 mg of IV Lasix and a Verde was placed. He is afebrile, blood pressure 143/74, heart rate 73, respiratory rate 18, oxygen saturation of 97% on room air he weighs 86.6 kg with a BMI of 25.2. Chest x-ray reported a likely small right-sided pleural effusion, ultrasound of the abdomen reported acute cholecystitis with gallstones, thickened gallbladder wall, pericholecystic fluid and a positive Reid sign. CT of the abdomen and pelvis indicated continued suspicion for cholecystitis, nonobstructing 6 mm kidney stone, kidney nodules and small bilateral pleural effusions right larger than left. MRI of the abdomen indicated gallstones with minimal pericholecystic fluid and a 13 mm cyst within the head of the pancreas and again small bilateral pleural effusions right larger than left. He does not have a white count, he is mildly anemic with a hemoglobin and hematocrit of 11.7 and 35.8 respectively, he has a mild left shift of 8800, BUN is 43, creatinine 2.34 with a EGFR of 28, this is abnormal from his baseline, glucose is 139, total bilirubin 2.7, AST 5555, ALT 271, alk-phos 309, total creatinine kinase is 42, proBNP is 5780, troponin did increase from normal to 0.62 likely demand ischemia, albumin is 3.0, lipase is 1900, there is presence of bilirubin in his urine and COVID-19 PCR is negative. FH: Reviewed with the patient and updated as below. Patient History Medical History (Updated 03/01/22 @ 20:46 by MAXWELL Liz) Bladder cancer BPH loc w urin obs/LUTS History of bladder cancer History of urinary urgency Hyperlipidemia Morbid obesity Renal calculus Scrotum swelling Sleep apnea TIA (transient ischemic attack) Urge incontinence Surgical History Hx of circumcision Hx of cystoscopy Hx of hernia repair Family & Social History Family History Father Cancer Pulmonary embolism Brother Cancer Hypertension IV drug user Mother Hypertension Social History: household members spouse Prior Living Arrangements House Safety & Behavioral: Feels Safe in Current Yes Environment Been Physically Hurt or No Threatened By a Person Tobacco & Substance use: Smoking Status Former smoker alcohol intake current alcohol intake frequency holiday/special occasion Substance Use Type does not use Meds Home Medications and Allergies Home Medications Medication Instructions Recorded Confirmed Type lisinopril 40 mg tablet 40 mg PO DAILY 09/18/20 03/01/22 History rosuvastatin 20 mg tablet 20 mg PO DAILY #90 tabs 07/30/21 03/01/22 Rx tamsulosin 0.4 mg capsule 0.8 mg PO DAILY #180 caps 07/30/21 03/01/22 Rx apixaban 5 mg tablet 5 mg PO BID #180 tabs 11/06/21 03/01/22 Rx fenofibrate 54 mg tablet 108 mg PO DAILY #180 tabs 11/06/21 03/01/22 Rx oxybutynin chloride 5 mg tablet 5 mg PO BID Urge incontinence #180 11/06/2102/12 Rx tabs spironolactone 25 mg tablet 25 mg PO DAILY 11/06/21 03/01/22 History carvedilol 12.5 mg tablet 12.5 mg PO BID #90 tabs 12/23/21 03/01/22 Rx acetaminophen 500 mg oral powder 500 mg PO QID PRN Pain (Scale 02/17/22 03/01/22 History packet (Tylenol Extra Strength) Score 4-6) cholecalciferol (vitamin D3) 125 125 mcg PO QWEEK #1 cap 02/17/22 03/01/22 Rx mcg (5,000 unit) capsule coenzyme Q10 100 mg capsule 100 mg PO DAILY 02/17/22 03/01/22 History furosemide 20 mg tablet (Lasix) 40 mg PO DAILY 02/17/22 03/01/22 History multivit with min-folic 1 tab PO DAILY 02/17/22 03/01/22 History acid-lutein 400 mcg-250 mcg chewable tablet (Centrum Silver) triamcinolone acetonide 0.1 % 1 applic topical BID #453.6 grams 02/17/22 03/01/22 Rx topical cream ergocalciferol (vitamin D2) 1,250 1 unit PO QWEEK 03/01/22 03/01/22 History mcg (50,000 unit) capsule (Vitamin D2) Allergies Allergy/AdvReac Type Severity Reaction Status Date / Time Interferons Allergy Severe unknown Verified 03/01/22 12:55 sitagliptin [From Januvia] Allergy Severe unknown Verified 03/01/22 12:55 Latex, Natural Rubber Allergy Unknown Verified 03/01/22 12:55 Review of Systems Review of Systems ROS: Yes All systems reviewed with the patient and are negative except as otherwise documented Exam Vital Signs (past 8 hours): - 03/01/22 12:30 03/01/22 12:30 03/01/22 13:00 Temperature Pulse Rate 92 H Respiratory Rate 24 Blood Pressure 139/63 134/61 Pulse Oximetry 98 Oxygen Flow Rate 03/01/22 13:00 03/01/22 13:30 03/01/22 13:30 Temperature Pulse Rate 87 86 Respiratory Rate 24 24 Blood Pressure 131/61 Pulse Oximetry 97 97 Oxygen Flow Rate 03/01/22 14:07 03/01/22 14:30 03/01/22 14:37 Temperature Pulse Rate 86 80 80 Respiratory Rate 20 23 Blood Pressure Pulse Oximetry 99 98 98 Oxygen Flow Rate 03/01/22 14:37 03/01/22 15:00 03/01/22 15:00 Temperature Pulse Rate 78 Respiratory Rate 24 Blood Pressure 135/80 136/62 Pulse Oximetry 97 Oxygen Flow Rate 03/01/22 15:30 03/01/22 15:30 03/01/22 16:39 Temperature Pulse Rate 82 80 Respiratory Rate 25 H 22 Blood Pressure 156/69 H Pulse Oximetry 98 Oxygen Flow Rate 03/01/22 16:48 03/01/22 16:48 03/01/22 17:00 Temperature Pulse Rate 80 Respiratory Rate Blood Pressure 143/67 H 129/63 Pulse Oximetry 96 Oxygen Flow Rate 03/01/22 17:00 03/01/22 17:30 03/01/22 17:30 Temperature Pulse Rate 75 74 Respiratory Rate 25 H 23 Blood Pressure 135/63 Pulse Oximetry 97 97 Oxygen Flow Rate 03/01/22 18:00 03/01/22 18:00 03/01/22 18:46 Temperature 97.8 F Pulse Rate 73 73 Respiratory Rate 23 18 Blood Pressure 137/65 143/74 H Pulse Oximetry 97 97 Oxygen Flow Rate 0 03/01/22 18:41 Temperature Pulse Rate Respiratory Rate Blood Pressure Pulse Oximetry 97 Oxygen Flow Rate 0 Oxygen Flow Rate 0 Narrative Exam Narrative: Gen: Alert, oriented, chronically ill appearing 76 y.o. male, NAD HEENT: normocephalic, atraumatic, conjunctiva clear, sclera non-icteric, oral mucosa pink and moist Neck: supple, full ROM, no JVD, trachea is midline, has massive ovoid shaped lipoma approx 8 cm X 10+ cm X 4 cm thick at the base of his neck and upper mid shoulders Resp: Lungs CTA, non-labored breathing CV: RRR, no murmur or rubs Abd: soft, non-tender, normoactive BTs Skin: eccymosis of upper extremities, no lesions or rashes, dry and intact Neuro: Alert and oriented X 4 w/no focal deficits. Speech clear and coherent. Extremities: currently now LW edema, loss of muscle mass, moves all 4 extremities, is ambulatory, negative Aparna?s sign Psyche: normal mood and affect. Objective Labs Result Diagrams: 03/01/22 09:50 03/01/22 09:50 Labs: Laboratory Results - last 24 hr 03/01/22 03/01/22 03/01/22 09:50 09:50 09:50 WBC 9.6 RBC 4.12 L Hgb 11.7 L Hct 35.8 L MCV 86.8 MCH 28.5 MCHC 32.8 RDW 15.3 H Plt Count 266 Neut % (Auto) 92.0 H Lymph % (Auto) 2.5 L Webb % (Auto) 4.8 Eos % (Auto) 0.3 L Baso % (Auto) 0.4 Neut # (Auto) 8800 H Lymph # (Auto) 200 L Webb # (Auto) 500 Eos # (Auto) 0 Baso # (Auto) 0 Sodium 138 Potassium 4.7 Chloride 101 Carbon Dioxide 30 BUN 43 H Creatinine 2.34 H Estimated GFR 28 L BUN/Creatinine Ratio 18.4 Glucose 139 H Lactate 1.1 Calcium 8.4 Total Bilirubin 2.7 H AST 555 H ALT 271 H Alkaline Phosphatase 309 H Total Creatine Kinase CK-MB (CK-2) CK-MB (CK-2) Rel Index Troponin I NT-Pro-B Natriuret Pep Total Protein 6.3 Albumin 3.0 L Globulin 3.3 Albumin/Globulin Ratio 0.9 L Lipase 1900 H Urine Color Urine Appearance Urine pH Ur Specific [place] Urine Protein Urine Glucose (UA) Urine Ketones Urine Occult Blood Urine Nitrate Urine Bilirubin Ur Bilirubin Confirm Urine Urobilinogen Ur Leukocyte Esterase Urine RBC Urine WBC Urine Bacteria Ur Culture Indicated? Ethyl Alcohol SARS-CoV-2 (PCR) 03/01/22 03/01/22 03/01/22 09:50 10:29 10:50 WBC RBC Hgb Hct MCV MCH MCHC RDW Plt Count Neut % (Auto) Lymph % (Auto) Webb % (Auto) Eos % (Auto) Baso % (Auto) Neut # (Auto) Lymph # (Auto) Webb # (Auto) Eos # (Auto) Baso # (Auto) Sodium Potassium Chloride Carbon Dioxide BUN Creatinine Estimated GFR BUN/Creatinine Ratio Glucose Lactate Calcium Total Bilirubin AST ALT Alkaline Phosphatase Total Creatine Kinase 42 L CK-MB (CK-2) TNP CK-MB (CK-2) Rel Index TNP Troponin I < 0.012 NT-Pro-B Natriuret Pep 5780 H Total Protein Albumin Globulin Albumin/Globulin Ratio Lipase Urine Color Urine Appearance Urine pH Ur Specific [place] Urine Protein Urine Glucose (UA) Urine Ketones Urine Occult Blood Urine Nitrate Urine Bilirubin Ur Bilirubin Confirm Urine Urobilinogen Ur Leukocyte Esterase Urine RBC Urine WBC Urine Bacteria Ur Culture Indicated? Ethyl Alcohol < 10 SARS-CoV-2 (PCR) Negative 03/01/22 03/01/22 12:00 19:49 WBC RBC Hgb Hct MCV MCH MCHC RDW Plt Count Neut % (Auto) Lymph % (Auto) Webb % (Auto) Eos % (Auto) Baso % (Auto) Neut # (Auto) Lymph # (Auto) Webb # (Auto) Eos # (Auto) Baso # (Auto) Sodium Potassium Chloride Carbon Dioxide BUN Creatinine Estimated GFR BUN/Creatinine Ratio Glucose Lactate Calcium Total Bilirubin AST ALT Alkaline Phosphatase Total Creatine Kinase CK-MB (CK-2) CK-MB (CK-2) Rel Index Troponin I 0.062 H NT-Pro-B Natriuret Pep Total Protein Albumin Globulin Albumin/Globulin Ratio Lipase Urine Color Yellow Urine Appearance Clear Urine pH 7.0 Ur Specific [place] 1.010 Urine Protein 3+ H Urine Glucose (UA) Trace H Urine Ketones Trace H Urine Occult Blood 2+ H Urine Nitrate Negative Urine Bilirubin 1+ H Ur Bilirubin Confirm Positive H Urine Urobilinogen 1.0 Ur Leukocyte Esterase Trace H Urine RBC 5-10/hpf H Urine WBC 0-1/hpf Urine Bacteria None seen Ur Culture Indicated? Specimen cultured Ethyl Alcohol SARS-CoV-2 (PCR) Assessment & Plan Assessment & Plan narrative: Raymundo Truong will be admitted for treatment and management of acute cholecystitis w/gallstones. Acute cholecystitis w/gallstones, present on admission * Dr. Greene, General Surgery has been notified and will consult * NPO after midnight * He was initiated on IV Zosyn in the emergency department and this will be co ntinued Acute liver failure, present on admission * He does have a 2-1 ratio of elevated AST to ALT * Suspected in the setting of bile duct obstruction * Will order an acute hepatitis panel * Holding rosuvastatin and fenofibrate in setting of acute liver injury Acute kidney injury, present on admission * Is creatinine is 2.34 with a EGFR 28, baseline EGFR is of been in the mid to high 30s * He has been ordered for renal diet * Continue daily monitoring of his renal function * MRI of the abdomen indicated normal kidneys without hydronephrosis * If worsening consider contacting his it investment/portfolio manager, Dr. Saran Jensen at [facility] * Kidney disease is regarded to be due to diabetic nephropathy based on a renal biopsy * Holding lisinopril in the setting of an GOLDIE. 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 Dan, plug sorter at [facility] * His proBNP was markedly elevated today and he was diuresed in the emergency d epartment and will be diuresed in the morning * Troponin was normal on presentation to the emergency department and has bumped up slightly likely due to CHF exacerbation and acute kidney injury. Will continue to trend q 6 hours * He is ordered for a limited echo in the am. * Continue home dose of carvedilol History of TIA, anticoagulated on apixaban. * Holding in the setting of anticipated surgery VTE Prophylaxis: Wells risk score 0 Bilateral SCDs Pharmacological VTE prophylaxis contraindicated in the setting of anticipated surgery. Patient is admitted to the inpatient service due to the severity of disease, risks of further disease progression and this stay is expected to exceed 2 midnights. FEN: IV fluids: IV saline lock, diet: renal heart healthy diet, labs: CBC, C/BMP, liver enzymes, Mag, PT/INR Consultants Dr. Greene, General Surgery, care and involvement in the patient?s care is appreciated. Dispo: unknown at this time Code status: Full code as discussed with the patient who identifies his Cristela as his surrogate and POA. [X] I have utilized all available immediate resources to obtain, update, or review of the patient's current medications VTE Deep Vein Thrombosis/Pulmonary Embolism Present on Admission: No MIPS - Admit I confirm the patient?s Advance Care Plan is present, Code status is documented, Surrogate decision maker is in patient?s record: Yes MIPS - DC The patient has current or prior documentation of left ventricular ejection fraction (LVEF) less than 40%, or moderate or severely depressed left ventricular systolic function.: No COVID-19 COVID-19 status: Negative Result date/Date tested (Pos, Neg/Pending): 03/01/22 Quality VTE Deep Vein Thrombosis/Pulmonary Embolism Present on Admission: No
[2022-03-02] VITALS (12 sets, daily range): BP systolic 121–161; BP diastolic 57–72; PULSE 56–73; RESP 14–20; TEMP 36.1–37; O2SAT 97–100
[2022-03-02 00:47] LABS: Acinetobacter baumannii Not Detected (Not Detect); E. coli Not Detected (Not Detect); Enterobacter cloacae complex Not Detected (Not Detect); Enterobacteriaceae species Detected (Not Detect); Enterococcus species Not Detected (Not Detect); KPC (carbapenem-resist gene) Not Detected (Not Detect); Listeria monocytogenes Not Detected (Not Detect); Staphylococcus species Not Detected (Not Detect); Streptococcus agalactiae (Gr B Not Detected (Not Detect); Streptococcus pneumonia Not Detected (Not Detect); Streptococcus pyogenes (Gr A) Not Detected (Not Detect); Streptococcus species Not Detected (Not Detect)
[2022-03-02 00:48] LABS: Proteus species Not Detected (Not Detect)
[2022-03-02 00:49] LABS: Candida albicans Not Detected (Not Detect); Candida glabrata Not Detected (Not Detect); Candida krusei Not Detected (Not Detect); Candida parapsilosis Not Detected (Not Detect); Candida tropicalis Not Detected (Not Detect); Haemophilus influenzae Not Detected (Not Detect); Neisseria meningitidis Not Detected (Not Detect); Pseudomonas aeruginosa Not Detected (Not Detect); Serratia marcescens Not Detected (Not Detect)
[2022-03-02] MEDS: PIPERACILLIN/TAZO 3.375 GM in SODIUM CHLORIDE 0.9% 100 ML IV ×3 (01:10→17:06)
[2022-03-02 06:49] LABS: Add Manual Diff / Slide Review NO; Basophils Absolute Auto 0 /uL (0-100); Basophils Percent Auto 0.2 % (0-2); Eosinophils Absolute Auto 0 /uL (0-450); Eosinophils Percent Auto 0.4 % (2-4); Hematocrit 32.4 % (41-53); Hemoglobin 10.8 g/dL (13.5-17.5); Lymphocytes Absolute Auto 600 /uL (1100-4500); Lymphocytes Percent Auto 6.3 % (25-40); Mean Corpuscular HGB Conc 33.5 % (30-36); Mean Corpuscular Hemoglobin 28.9 PG (26-34); Mean Corpuscular Volume 86.5 fL (80-100); Monocytes Absolute Auto 500 /uL (0-900); Monocytes Percent Auto 4.8 % (3-14); Neutrophils Absolute Auto 8800 /uL (1500-7000); Neutrophils Percent Auto 88.3 % (50-75); Platelet Count 246 X10^3/uL (150-400); Red Blood Cell Count 3.74 X10^6/uL (4.5-5.9); Red Cell Distribution Width 15.3 % (11.6-14.8)
[2022-03-02 06:56] LABS: Alanine Aminotransferase 187 IU/L (<50); Albumin 2.6 g/dL (3.5-5.0); Albumin Globulin Ratio 0.8 (1.0-2.8); Alkaline Phosphatase 210 U/L (38-126); Aspartate Aminotransferase 225 IU/L (17-59); BUN Creatinine Ratio 16.9 (6-22); Bilirubin Total 1.6 mg/dL (0.2-1.3); Blood Urea Nitrogen 47 mg/dL (9-20); Calcium 8.1 mg/dL (8.4-10.2); Carbon Dioxide 30 mmol/L (22-32); Chloride 101 mmol/L (98-107); Estimated Glomerular Filt Rate 23 mL/min (>60); Globulin 3.1 g/dL (1.7-4.1); Glucose 113 mg/dL (80-110); HEMOLYSIS < 15 (0-50); Potassium 4.4 mmol/L (3.4-5.1); Sodium 138 mmol/L (137-145); Total Protein 5.7 g/dL (6.3-8.2)
[2022-03-02] MEDS: TAMSULOSIN 0.4 MG CAPSULE 0.8 MG PO (09:12)
[2022-03-02] MEDS: carvediloL 12.5 MG TABLET PO ×2 (09:13→20:32)
[2022-03-02] MEDS: SPIRONOLACTONE 25 MG TABLET PO (09:14)
[2022-03-02] MEDS: FUROSEMIDE 40 MG/4 ML VIAL IV (10:15)
[2022-03-02 10:23] LABS: Troponin I 0.065 ng/mL (0.01-0.034)
--- NOTE | 2022-03-02 10:36 | P.HP_ITS ---
History of Present Illness History of Present Illness Date Patient Seen: 03/02/22 Time Patient Seen: 09:30 Chief complaint: Abdominal pain, reported confusion Narrative: Mr. Truong was brought to the emergency room yesterday by his because he was very confused. The last several days he had been complaining of abdominal pain off and on they had not thought much of it until yesterday when he was simply so confused that she became very concerned and called 911. He was brought to the emergency room evaluated and found to have some inflammation around his gal lbladder as well as stones. An elevated total bilirubin of 2.7 and a lipase of 1900. The scan showed evidence of some inflammation, MRCP was done yesterday that showed no stones in the common bile duct however there is a pancreatic lesion indicative of IPMN. He states that in retrospect the gallbladder makes a lot of sense as the reason for his symptoms. He has not noticed any association in particular with his abdominal pain and food intake. Also associated symptom of diarrhea and incontinence which occurred yesterday. In addition his states that he was extremely weak unable to walk without his walker though he usually can. And that he was ?trembling?. Patient sleeps every night in a recliner. He has a diagnosis of obstructive sleep apnea and has been prescribed a CPAP however he feels he does not need to use this when he is sleeping in his recliner. He is aware of chronic kidney disease and has undergone a kidney biopsy in September his marketing administrative assistant is Dr. Mikey Castrejon. He understands that the kidney failure has been attributed to diabetes and he has taken insulin in the past however is off the insulin since he states his A1c was ?not too bad? 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 He has had a recent stress nuclear medicine scan done at [facility] which showed an old AK. he has been getting troponins trended since admission and they are low but slightly trending up today. He is on Zosyn IV for treatment of acute cholecystitis. He has been prescribed furosemide by his renal doctor for lower extremity edema and this has been titrated he says the edema is improved and he continues to take furosemide daily. His weight is 195 lb and he is trying to keep it stable at that by adjusting the furosemide dose. Most Recent Cardiac Tests: Chest X-Ray 03/01/22 Patient History Medical History Bladder cancer BPH loc w urin obs/LUTS History of bladder cancer History of urinary urgency Hyperlipidemia Morbid obesity Renal calculus Scrotum swelling Sleep apnea TIA (transient ischemic attack) Urge incontinence Surgical History Hx of circumcision Hx of cystoscopy Hx of hernia repair Comment: In addition to the above he has had a silent AK in the past. He probably has had some heart failure and fluid overload based on his history. He states other than the right inguinal hernia repair he has never had an abdominal surgery. Family & Social History Family History Father Cancer Pulmonary embolism Brother Cancer Hypertension IV drug user Mother Hypertension Social History: household members spouse Prior Living Arrangements House Safety & Behavioral: Feels Safe in Current Yes Environment Been Physically Hurt or No Threatened By a Person Tobacco & Substance use: Smoking Status Former smoker alcohol intake current alcohol intake frequency holiday/special occasion Substance Use Type does not use Meds Home Medications and Allergies Home Medications Medication Instructions Recorded Confirmed Type lisinopril 40 mg tablet 40 mg PO DAILY 09/18/20 03/01/22 History rosuvastatin 20 mg tablet 20 mg PO DAILY #90 tabs 07/30/21 03/01/22 Rx tamsulosin 0.4 mg capsule 0.8 mg PO DAILY #180 caps 07/30/21 03/01/22 Rx apixaban 5 mg tablet 5 mg PO BID #180 tabs 11/06/21 03/01/22 Rx fenofibrate 54 mg tablet 108 mg PO DAILY #180 tabs 11/06/21 03/01/22 Rx oxybutynin chloride 5 mg tablet 5 mg PO BID Urge incontinence #180 11/06/21 03/01/22 Rx tabs spironolactone 25 mg tablet 25 mg PO DAILY 11/06/21 03/01/22 History carvedilol 12.5 mg tablet 12.5 mg PO BID #90 tabs 12/23/21 03/01/22 Rx acetaminophen 500 mg oral powder 500 mg PO QID PRN Pain (Scale 02/17/22 03/01/22 History packet (Tylenol Extra Strength) Score 4-6) cholecalciferol (vitamin D3) 125 125 mcg PO QWEEK #1 cap 02/17/22 03/01/22 Rx mcg (5,000 unit) capsule coenzyme Q10 100 mg capsule 100 mg PO DAILY 02/17/22 03/01/22 History furosemide 20 mg tablet (Lasix) 40 mg PO DAILY 02/17/22 03/01/22 History multivit with min-folic 1 tab PO DAILY 02/17/22 03/01/22 History acid-lutein 400 mcg-250 mcg chewable tablet (Centrum Silver) triamcinolone acetonide 0.1 % 1 applic topical BID #453.6 grams 02/17/22 03/01/22 Rx topical cream ergocalciferol (vitamin D2) 1,250 1 unit PO QWEEK 03/01/22 03/01/22 History mcg (50,000 unit) capsule (Vitamin D2) Allergies Allergy/AdvReac Type Severity Reaction Status Date / Time Interferons Allergy Severe unknown Verified 03/01/22 12:55 sitagliptin [From Januvia] Allergy Severe unknown Verified 03/01/22 12:55 Latex, Natural Rubber Allergy Unknown Verified 03/01/22 12:55 Exam Vital Signs (past 8 hours): - 03/02/22 05:55 03/02/22 08:00 03/02/22 10:20 Temperature 98.0 F 97.4 F L Pulse Rate 60 63 Respiratory Rate 14 18 Blood Pressure 139/67 134/72 Pulse Oximetry 99 100 Oxygen Delivery Method Room Air Oxygen Flow Rate 0 0 03/02/22 10:20 Temperature Pulse Rate Respiratory Rate Blood Pressure Pulse Oximetry 100 Oxygen Delivery Method Room Air Oxygen Flow Rate Oxygen Delivery Method Room Air Oxygen Flow Rate 0 Const General: cooperative, comfortable and ill appearing Orientation: alert, awake and oriented x3 Other: Appears frail. HENMT Head: normal to inspection Resp Effort & Inspection: normal respiratory effort and able to speak in complete sentences Cardio Pulses: radial pulses present GI Inspection: normal to inspection and incision (Right inguinal incision status post hernia repair) Palpation: soft, hernia (Palpable mildly tender left inguinal hernia) and tender (Right upper quadrant mild tenderness to palpation.) Skin General: turgor normal (The turgor of the skin is somewhat indicative of dehydration.), dry skin and ecchymosis Hair: general thinning Neuro General: patient alert, patient awake and patient oriented x3 Extrem Other: No edema or tenderness bilateral lower extremities. Skin changes consistent with venous stasis abnormalities. Objective Labs Result Diagrams: 03/02/22 06:20 03/02/22 06:20 Labs: Laboratory Results - last 24 hr 03/01/22 03/01/22 03/01/22 10:29 10:50 10:50 WBC RBC Hgb Hct MCV MCH MCHC RDW Plt Count Neut % (Auto) Lymph % (Auto) [place] % (Auto) Eos % (Auto) Baso % (Auto) Neut # (Auto) Lymph # (Auto) [place] # (Auto) Eos # (Auto) Baso # (Auto) Sodium Potassium Chloride Carbon Dioxide BUN Creatinine Estimated GFR BUN/Creatinine Ratio Glucose Calcium Magnesium Total Bilirubin AST ALT Alkaline Phosphatase Troponin I NT-Pro-B Natriuret Pep 5780 H Total Protein Albumin Globulin Albumin/Globulin Ratio Urine Color Urine Appearance Urine pH Ur Specific [place] Urine Protein Urine Glucose (UA) Urine Ketones Urine Occult Blood Urine Nitrate Urine Bilirubin Ur Bilirubin Confirm Urine Urobilinogen Ur Leukocyte Esterase Urine RBC Urine WBC Urine Bacteria Ur Culture Indicated? A. baumannii (PCR) Not detected Bella albicans (PCR) Not detected C. glabrata (PCR) Not detected C. krusei (PCR) Not detected C. parapsilosis (PCR) Not detected C. tropicalis (PCR) Not detected SARS-CoV-2 (PCR) Negative Enterobacteriac sp PCR Detected H E. cloacae complex PCR Not detected Enterococcus sp PCR Not detected E. coli (PCR) Not detected H. influenzae (PCR) Not detected Klebsiella oxytoca PCR Not detected Klebsiella pneumoniae Detected H List. monocytogenes PCR Not detected N. meningitidis (PCR) Not detected Proteus species (PCR) Not detected Serratia marcescens PCR Not detected Staphylococcus sp PCR Not detected Staph aureus (PCR) Not detected mecA-Methicil Res Gene Not Reportable Streptococcus sp PCR Not detected Group A Strep (PCR) Not detected Strep agalactiae (PCR) Not detected Strep pneumoniae (PCR) Not detected P. aeruginosa (PCR) Not detected Shannon/B-Vanco Res Genes Not Reportable KPC-Carbap Res Gene PCR Not detected 03/01/22 03/01/22 03/02/22 12:00 19:49 02:00 WBC RBC Hgb Hct MCV MCH MCHC RDW Plt Count Neut % (Auto) Lymph % (Auto) [place] % (Auto) Eos % (Auto) Baso % (Auto) Neut # (Auto) Lymph # (Auto) [place] # (Auto) Eos # (Auto) Baso # (Auto) Sodium Potassium Chloride Carbon Dioxide BUN Creatinine Estimated GFR BUN/Creatinine Ratio Glucose Calcium Magnesium Total Bilirubin AST ALT Alkaline Phosphatase Troponin I 0.062 H 0.070 H NT-Pro-B Natriuret Pep Total Protein Albumin Globulin Albumin/Globulin Ratio Urine Color Yellow Urine Appearance Clear Urine pH 7.0 Ur Specific [place] 1.010 Urine Protein 3+ H Urine Glucose (UA) Trace H Urine Ketones Trace H Urine Occult Blood 2+ H Urine Nitrate Negative Urine Bilirubin 1+ H Ur Bilirubin Confirm Positive H Urine Urobilinogen 1.0 Ur Leukocyte Esterase Trace H Urine RBC 5-10/hpf H Urine WBC 0-1/hpf Urine Bacteria None seen Ur Culture Indicated? Specimen cultured A. baumannii (PCR) Bella albicans (PCR) C. glabrata (PCR) C. krusei (PCR) C. parapsilosis (PCR) C. tropicalis (PCR) SARS-CoV-2 (PCR) Enterobacteriac sp PCR E. cloacae complex PCR Enterococcus sp PCR E. coli (PCR) H. influenzae (PCR) Klebsiella oxytoca PCR Klebsiella pneumoniae List. monocytogenes PCR N. meningitidis (PCR) Proteus species (PCR) Serratia marcescens PCR Staphylococcus sp PCR Staph aureus (PCR) mecA-Methicil Res Gene Streptococcus sp PCR Group A Strep (PCR) Strep agalactiae (PCR) Strep pneumoniae (PCR) P. aeruginosa (PCR) Shannon/B-Vanco Res Genes KPC-Carbap Res Gene PCR 03/02/22 03/02/22 03/02/22 06:20 06:20 09:40 WBC 10.0 RBC 3.74 L Hgb 10.8 L Hct 32.4 L MCV 86.5 MCH 28.9 MCHC 33.5 RDW 15.3 H Plt Count 246 Neut % (Auto) 88.3 H Lymph % (Auto) 6.3 L [place] % (Auto) 4.8 Eos % (Auto) 0.4 L Baso % (Auto) 0.2 Neut # (Auto) 8800 H Lymph # (Auto) 600 L [place] # (Auto) 500 Eos # (Auto) 0 Baso # (Auto) 0 Sodium 138 Potassium 4.4 Chloride 101 Carbon Dioxide 30 BUN 47 H Creatinine 2.78 H Estimated GFR 23 L BUN/Creatinine Ratio 16.9 Glucose 113 H Calcium 8.1 L Magnesium 2.0 Total Bilirubin 1.6 H AST 225 H ALT 187 H Alkaline Phosphatase 210 H Troponin I 0.065 H NT-Pro-B Natriuret Pep Total Protein 5.7 L Albumin 2.6 L Globulin 3.1 Albumin/Globulin Ratio 0.8 L Urine Color Urine Appearance Urine pH Ur Specific [place] Urine Protein Urine Glucose (UA) Urine Ketones Urine Occult Blood Urine Nitrate Urine Bilirubin Ur Bilirubin Confirm Urine Urobilinogen Ur Leukocyte Esterase Urine RBC Urine WBC Urine Bacteria Ur Culture Indicated? A. baumannii (PCR) Bella albicans (PCR) C. glabrata (PCR) C. krusei (PCR) C. parapsilosis (PCR) C. tropicalis (PCR) SARS-CoV-2 (PCR) Enterobacteriac sp PCR E. cloacae complex PCR Enterococcus sp PCR E. coli (PCR) H. influenzae (PCR) Klebsiella oxytoca PCR Klebsiella pneumoniae List. monocytogenes PCR N. meningitidis (PCR) Proteus species (PCR) Serratia marcescens PCR Staphylococcus sp PCR Staph aureus (PCR) mecA-Methicil Res Gene Streptococcus sp PCR Group A Strep (PCR) Strep agalactiae (PCR) Strep pneumoniae (PCR) P. aeruginosa (PCR) Shannon/B-Vanco Res Genes KPC-Carbap Res Gene PCR Assessment & Plan Assessment and plan (1) Acute cholecystitis: Status: Acute Assessment & Plan narrative: I spent at least an hour discussing acute cholecystitis and other medical issues with both Mr. Truong and his at bedside and Dr. Braun the plumber and tinner. IA do attribute his present symptoms to acute cholecystitis and believe he probably also had a common bile duct stone which has now been passed. Generally cholecystectomy is recommended in these cases, to prevent future episodes. However there is no risk to medical optimization prior to proceeding with cholecystectomy. Alternative methods of management could include a cholecystostomy tube and an interval cholecystectomy after several weeks of optimization if this is needed. At this time I will cancel the operation scheduled for today because I think we do need to continue to trend troponins and want to see the creatinine stable. His fluid status should be optimized at least. There may be other medical optimization that can be made. I would like to offer MrKristopher Fonseca real and measured quantification of his perioperative risk before obtaining his informed consent to proceed with a cholecystectomy. He and his understand this point of view and I agree completely and understand. Their questions have been answered. Patient may eat a low-fat diet. Time Spent With Patient Time with patient: 50 to 69 minutes with 50% spent counseling/coordinating care Critical Care time: I spent a total of [] minutes of critical care time on this patient's care today; this time is exclusive of procedural time. Quality VTE Deep Vein Thrombosis/Pulmonary Embolism Present on Admission: No
--- NOTE | 2022-03-02 12:42 | CM.DANOTE ---
DCP Assessment: Payor confirmed: [facility] PCP: MD Jennifer Pt is a 76 y.o. M admitted for acute cholecystitis, urinary retention, and hyperbilirubinemia. Pt brought up to the acute care for management and further evaluation of symptoms. DCP met with pt this afternoon to discuss discharge needs. Pt sitting up in bed. Spouse at bedside. DCP introduced self and role. Pt lives in [place], with supportive spouse, in a bottom floor condo with no stairs. Pt is fairly independent at baseline. Pt owns a FWW but does not use it. Pt still drives POV. Pt states that he has been getting weaker. Pt states that there will not be any surgery today and instead states, doctor wants to keep me here to make me a better candidate for surgery. Pt spouse brings up the concern if following surgery she could get someone to help her take him a bath. DCP verbalized home health could be an option depending on physical activity level and his weakness. Pt and spouse thankful for the information. DCP to continue to follow for needs closer to discharge. White board updated and instructed to call. P: Surgery canceled for today. Pt to have labs and continue to trend per MD. Possible surgery in the coming days. DCP to continue to follow and offer support when needed. Baylee White RN/MAYRA Discharge Planning/Care Management CM Discharge Assessment Start: 03/02/22 12:41 Freq: Status: Active Protocol: Document 03/02/22 12:41 BRIDGET (Rec: 03/02/22 12:42 [id number]) Discharge Planning Assessment Assigned Motor Analyst Baylee White RN/MAYRA Advance Directives? No History Provided By Patient,Medical Record Prior Living Arrangements House Household Members spouse Type of transporation used prior to Drives own vehicle admit Independent with ADL's Yes Is patient alert and oriented? Yes Caregiver for Another No DME Already Rented / Owned FWW / Walker Discharge Plan Home Referrals Initiated None needed Additional Comment At this time. R/O HH following surgery. Whiteboard Updated in Patient Room with Yes name and ext. # of Motor Analyst Comment Instructed to call Review Status In Process Please Provide Date Initial DC 03/02/22 Assessment Was Performed Next Review Type Continued Stay Review
--- NOTE | 2022-03-02 15:35 | P.PN_ITS ---
Subjective Subjective Date Patient Seen: 03/02/22 Interval history: Abdominal pain has improved today, he is much less confused and doing a lot better. Denies chest pain, nausea, vomiting currently. Some constipation recently but had a bowel movement after lunch. Exam Vital Signs (past 8 hours): - 03/02/22 08:00 03/02/22 10:20 03/02/22 10:20 Temperature 97.4 F L Pulse Rate 63 Respiratory Rate 18 Blood Pressure 134/72 Pulse Oximetry 100 100 Oxygen Delivery Method Room Air Room Air Oxygen Flow Rate 0 03/02/22 12:00 03/02/22 14:47 Temperature 97.0 F L Pulse Rate 69 Respiratory Rate 16 Blood Pressure 121/63 Pulse Oximetry 100 100 Oxygen Delivery Method Room Air Oxygen Flow Rate 0 Oxygen Delivery Method Room Air Oxygen Flow Rate 0 Narrative Exam Narrative: Gen: Alert, oriented, chronically ill appearing 76 y.o. 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 Extremities: venous stasis changes, no LE edema, no joint effusions Psyche: normal mood and affect. Objective Labs Result Diagrams: 03/02/22 06:20 03/02/22 06:20 Labs: Laboratory Results - last 24 hr 03/01/22 03/01/22 03/01/22 10:50 10:50 19:49 WBC RBC Hgb Hct MCV MCH MCHC RDW Plt Count Neut % (Auto) Lymph % (Auto) [place] % (Auto) Eos % (Auto) Baso % (Auto) Neut # (Auto) Lymph # (Auto) [place] # (Auto) Eos # (Auto) Baso # (Auto) Sodium Potassium Chloride Carbon Dioxide BUN Creatinine Estimated GFR BUN/Creatinine Ratio Glucose Calcium Magnesium Total Bilirubin AST ALT Alkaline Phosphatase Troponin I 0.062 H NT-Pro-B Natriuret Pep 5780 H Total Protein Albumin Globulin Albumin/Globulin Ratio A. baumannii (PCR) Not detected Bella albicans (PCR) Not detected C. glabrata (PCR) Not detected C. krusei (PCR) Not detected C. parapsilosis (PCR) Not detected C. tropicalis (PCR) Not detected Enterobacteriac sp PCR Detected H E. cloacae complex PCR Not detected Enterococcus sp PCR Not detected E. coli (PCR) Not detected H. influenzae (PCR) Not detected Klebsiella oxytoca PCR Not detected Klebsiella pneumoniae Detected H List. monocytogenes PCR Not detected N. meningitidis (PCR) Not detected Proteus species (PCR) Not detected Serratia marcescens PCR Not detected Staphylococcus sp PCR Not detected Staph aureus (PCR) Not detected mecA-Methicil Res Gene Not Reportable Streptococcus sp PCR Not detected Group A Strep (PCR) Not detected Strep agalactiae (PCR) Not detected Strep pneumoniae (PCR) Not detected P. aeruginosa (PCR) Not detected Shannon/B-Vanco Res Genes Not Reportable KPC-Carbap Res Gene PCR Not detected 03/02/22 03/02/22 03/02/22 02:00 06:20 06:20 WBC 10.0 RBC 3.74 L Hgb 10.8 L Hct 32.4 L MCV 86.5 MCH 28.9 MCHC 33.5 RDW 15.3 H Plt Count 246 Neut % (Auto) 88.3 H Lymph % (Auto) 6.3 L [place] % (Auto) 4.8 Eos % (Auto) 0.4 L Baso % (Auto) 0.2 Neut # (Auto) 8800 H Lymph # (Auto) 600 L [place] # (Auto) 500 Eos # (Auto) 0 Baso # (Auto) 0 Sodium 138 Potassium 4.4 Chloride 101 Carbon Dioxide 30 BUN 47 H Creatinine 2.78 H Estimated GFR 23 L BUN/Creatinine Ratio 16.9 Glucose 113 H Calcium 8.1 L Magnesium 2.0 Total Bilirubin 1.6 H AST 225 H ALT 187 H Alkaline Phosphatase 210 H Troponin I 0.070 H NT-Pro-B Natriuret Pep Total Protein 5.7 L Albumin 2.6 L Globulin 3.1 Albumin/Globulin Ratio 0.8 L A. baumannii (PCR) Bella albicans (PCR) C. glabrata (PCR) C. krusei (PCR) C. parapsilosis (PCR) C. tropicalis (PCR) Enterobacteriac sp PCR E. cloacae complex PCR Enterococcus sp PCR E. coli (PCR) H. influenzae (PCR) Klebsiella oxytoca PCR Klebsiella pneumoniae List. monocytogenes PCR N. meningitidis (PCR) Proteus species (PCR) Serratia marcescens PCR Staphylococcus sp PCR Staph aureus (PCR) mecA-Methicil Res Gene Streptococcus sp PCR Group A Strep (PCR) Strep agalactiae (PCR) Strep pneumoniae (PCR) P. aeruginosa (PCR) Shannon/B-Vanco Res Genes KPC-Carbap Res Gene PCR 03/02/22 09:40 WBC RBC Hgb Hct MCV MCH MCHC RDW Plt Count Neut % (Auto) Lymph % (Auto) [place] % (Auto) Eos % (Auto) Baso % (Auto) Neut # (Auto) Lymph # (Auto) [place] # (Auto) Eos # (Auto) Baso # (Auto) Sodium Potassium Chloride Carbon Dioxide BUN Creatinine Estimated GFR BUN/Creatinine Ratio Glucose Calcium Magnesium Total Bilirubin AST ALT Alkaline Phosphatase Troponin I 0.065 H NT-Pro-B Natriuret Pep Total Protein Albumin Globulin Albumin/Globulin Ratio A. baumannii (PCR) Bella albicans (PCR) C. glabrata (PCR) C. krusei (PCR) C. parapsilosis (PCR) C. tropicalis (PCR) Enterobacteriac sp PCR E. cloacae complex PCR Enterococcus sp PCR E. coli (PCR) H. influenzae (PCR) Klebsiella oxytoca PCR Klebsiella pneumoniae List. monocytogenes PCR N. meningitidis (PCR) Proteus species (PCR) Serratia marcescens PCR Staphylococcus sp PCR Staph aureus (PCR) mecA-Methicil Res Gene Streptococcus sp PCR Group A Strep (PCR) Strep agalactiae (PCR) Strep pneumoniae (PCR) P. aeruginosa (PCR) Shannon/B-Vanco Res Genes KPC-Carbap Res Gene PCR PFSH Medical History Bladder cancer BPH loc w urin obs/LUTS History of bladder cancer History of urinary urgency Hyperlipidemia Morbid obesity Renal calculus Scrotum swelling Sleep apnea TIA (transient ischemic attack) Urge incontinence Surgical History Hx of circumcision Hx of cystoscopy Hx of hernia repair Family History Father Cancer Pulmonary embolism Brother Cancer Hypertension IV drug user Mother Hypertension Social History household members: spouse Smoking Status: Former smoker alcohol intake: current Assessment & Plan Assessment & Plan narrative: Raymundo Truong will be admitted for treatment and management of acute cholecystitis w/gallstones. Sepsis without shock, secondary to Acute cholecystitis w/gallstones, present on admission with acute hepatic failure, GOLDIE, CHF exacerbation * Appreciate general surgery consultation, patient not quite medically optimized and stable from cholecystitis. Once creatinine starts to trend down he will be medically optimized assuming there is not a severe decline in his kidney function from presumed baseline. * continue zoysn for cholecystitis * continue to follow kidney function, suspect in setting of sepsis. Acute liver failure, present on admission * He does have a 2-1 ratio of elevated AST to ALT * Suspected in the setting of bile duct obstruction, MRCP negative for obstructing stone now. May also be from sepsis. * Holding rosuvastatin and fenofibrate in setting of acute liver injury * management as noted above. * hepatitis panel pending Acute kidney injury, present on admission, with CKD * Creatinine up to 2.8 today. Suspect in setting of sepsis. May be volume overload as well. Appears euvolemic today after diuresis so will hold on additional lasix therapy for now. * Continue daily monitoring of his renal function. Baseline creatinine around 1.8-2.0 based on previous results. * MRI of the abdomen indicated normal kidneys without hydronephrosis * If worsening consider contacting his development representative, Dr. Saran Jensen at [facility] * Kidney disease is regarded to be due to diabetic nephropathy based on a renal biopsy * Holding lisinopril in the setting of an GOLDIE. 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 Dan, lamination machine operator at [facility] * Troponin was normal on presentation to the emergency department and has bumped up slightly likely due to CHF exacerbation and acute kidney injury. Now improving. * Limited echo with improved EF compared to prior studies. No focal wall motion abnormalities. * Continue home dose of carvedilol * will hold on additional lasix now given GOLDIE worsening today. History of TIA, anticoagulated on apixaban. * Holding AC in the setting of anticipated surgery Myocardial injury - elevated troponin likely in setting of presumed CAD (based on prior stress t esting) - continue ASA and statin - high risk cardiac patient, will need to check post operative troponins following surgery. VTE Prophylaxis: Wells risk score 0 Bilateral SCDs Pharmacological VTE prophylaxis contraindicated in the setting of anticipated surgery. Consultants: general surgery Dispo: likely home, timing in 3-4 days as needs optimization prior to cholecystectomy and will need cardiac monitoring post-operatively given high cardiac risk. Code status: Full code as discussed with the patient who identifies his Cristela as his surrogate and POA. [X] I have utilized all available immediate resources to obtain, update, or review of the patient's current medications VTE Deep Vein Thrombosis/Pulmonary Embolism Present on Admission: No MIPS - Admit I confirm the patient?s Advance Care Plan is present, Code status is documented, Surrogate decision maker is in patient?s record: Yes MIPS - DC The patient has current or prior documentation of left ventricular ejection fr action (LVEF) less than 40%, or moderate or severely depressed left ventricular systolic function.: No COVID-19 COVID-19 status: Negative Result date/Date tested (Pos, Neg/Pending): 03/01/22 Time Spent With Patient Critical Care time: I spent a total of [] minutes of critical care time on this patient's care today; this time is exclusive of procedural time. Quality VTE Deep Vein Thrombosis/Pulmonary Embolism Present on Admission: No
[2022-03-02 18:17] LABS: BUN Creatinine Ratio 18.7 (6-22); Blood Urea Nitrogen 53 mg/dL (9-20); Calcium 7.9 mg/dL (8.4-10.2); Carbon Dioxide 26 mmol/L (22-32); Chloride 101 mmol/L (98-107); Estimated Glomerular Filt Rate 22 mL/min (>60); Glucose 173 mg/dL (80-110); HEMOLYSIS < 15 (0-50); Potassium 4.2 mmol/L (3.4-5.1); Sodium 137 mmol/L (137-145)
[2022-03-03] VITALS (8 sets, daily range): BP systolic 157–176; BP diastolic 63–88; PULSE 62–71; RESP 16–18; TEMP 36.3–36.8; O2SAT 98–100
[2022-03-03] MEDS: PIPERACILLIN/TAZO 3.375 GM in SODIUM CHLORIDE 0.9% 100 ML IV ×3 (01:00→16:29)
[2022-03-03 05:01] LABS: HBsAg Screen Negative (Negative); Hepatitis A Antibody IgM Negative (Negative); Hepatitis B Core Antibody IgM Negative (Negative); Hepatitis C Antibody <0.1 s/co ratio (0.0-0.9)
[2022-03-03 06:47] LABS: Add Manual Diff / Slide Review NO; Basophils Absolute Auto 100 /uL (0-100); Eosinophils Absolute Auto 200 /uL (0-450); Hematocrit 31.5 % (41-53); Hemoglobin 10.5 g/dL (13.5-17.5); Lymphocytes Absolute Auto 700 /uL (1100-4500); Lymphocytes Percent Auto 9.4 % (25-40); Mean Corpuscular HGB Conc 33.4 % (30-36); Mean Corpuscular Hemoglobin 28.9 PG (26-34); Mean Corpuscular Volume 86.4 fL (80-100); Monocytes Absolute Auto 600 /uL (0-900); Monocytes Percent Auto 7.7 % (3-14); Neutrophils Absolute Auto 6200 /uL (1500-7000); Neutrophils Percent Auto 79.9 % (50-75); Platelet Count 247 X10^3/uL (150-400); Red Blood Cell Count 3.64 X10^6/uL (4.5-5.9); Red Cell Distribution Width 15.1 % (11.6-14.8); White Blood Cell Count 7.7 X10^3/uL (4.5-11.0)
[2022-03-03 07:18] LABS: Alanine Aminotransferase 138 IU/L (<50); Albumin 2.5 g/dL (3.5-5.0); Albumin Globulin Ratio 0.8 (1.0-2.8); Alkaline Phosphatase 335 U/L (38-126); Aspartate Aminotransferase 142 IU/L (17-59); BUN Creatinine Ratio 19.2 (6-22); Bilirubin Total 1.1 mg/dL (0.2-1.3); Blood Urea Nitrogen 57 mg/dL (9-20); Calcium 8.1 mg/dL (8.4-10.2); Carbon Dioxide 29 mmol/L (22-32); Chloride 101 mmol/L (98-107); Estimated Glomerular Filt Rate 21 mL/min (>60); Globulin 3.1 g/dL (1.7-4.1); Glucose 134 mg/dL (80-110); HEMOLYSIS < 15 (0-50); Potassium 4.7 mmol/L (3.4-5.1); Sodium 137 mmol/L (137-145); Total Protein 5.6 g/dL (6.3-8.2)
--- NOTE | 2022-03-03 08:26 | P.PN_ITS ---
Subjective Subjective Date Patient Seen: 03/03/22 Time Patient Seen: 08:26 Interval history: Feeling fine, hungry Exam Vital Signs (past 8 hours): - 03/03/22 03:00 03/03/22 04:00 03/03/22 08:00 Temperature 98.2 F Pulse Rate 71 Respiratory Rate 18 Blood Pressure 175/71 H Pulse Oximetry 98 98 98 Oxygen Delivery Method Room Air Room Air Oxygen Flow Rate 0 0 03/03/22 08:00 Temperature 97.5 F L Pulse Rate 70 Respiratory Rate 17 Blood Pressure 176/88 H Pulse Oximetry 99 Oxygen Delivery Method Oxygen Flow Rate 0 Oxygen Delivery Method Room Air Oxygen Flow Rate 0 Narrative Exam Narrative: abdomen is slightly tender but markedly improved according to patient. NO pain w/o palpation Const General: cooperative and comfortable HENMT Head: normal to inspection Face and sinus: normal facial exam Eyes General: appearance normal, both eyes and all related structures Neck Neck: trachea midline Chest Chest: normal inspection of the chest Resp Effort & Inspection: normal respiratory effort and able to speak in complete sentences Cardio Rate: regular rate Rhythm: regular rhythm Back/Spine/Pelvis Back: normal to inspection Skin General: turgor normal and atrophy Neuro General: patient alert, patient awake and patient oriented x3 Extrem General: normal to inspection Psych Appearance: grossly normal Judgment: judgment good Objective Labs Result Diagrams: 03/03/22 06:28 03/03/22 06:28 Labs: Laboratory Results - last 24 hr 03/01/22 03/02/22 03/02/22 10:50 06:20 09:40 WBC RBC Hgb Hct MCV MCH MCHC RDW Plt Count Neut % (Auto) Lymph % (Auto) [place] % (Auto) Eos % (Auto) Baso % (Auto) Neut # (Auto) Lymph # (Auto) [place] # (Auto) Eos # (Auto) Baso # (Auto) Sodium Potassium Chloride Carbon Dioxide BUN Creatinine Estimated GFR BUN/Creatinine Ratio Glucose Calcium Magnesium Total Bilirubin AST ALT Alkaline Phosphatase Troponin I 0.065 H Total Protein Albumin Globulin Albumin/Globulin Ratio A. baumannii (PCR) Not detected Bella albicans (PCR) Not detected C. glabrata (PCR) Not detected C. krusei (PCR) Not detected C. parapsilosis (PCR) Not detected C. tropicalis (PCR) Not detected Enterobacteriac sp PCR Detected H E. cloacae complex PCR Not detected Enterococcus sp PCR Not detected E. coli (PCR) Not detected H. influenzae (PCR) Not detected Hepatitis A IgM Ab Negative Hep Bs Antigen Negative Hep B Core IgM Ab Negative Hepatitis C Antibody <0.1 Hep C Ab Signal/Cutoff Comment Klebsiella oxytoca PCR Not detected Klebsiella pneumoniae Detected H List. monocytogenes PCR Not detected N. meningitidis (PCR) Not detected Proteus species (PCR) Not detected Serratia marcescens PCR Not detected Staphylococcus sp PCR Not detected Staph aureus (PCR) Not detected Streptococcus sp PCR Not detected Group A Strep (PCR) Not detected Strep agalactiae (PCR) Not detected Strep pneumoniae (PCR) Not detected P. aeruginosa (PCR) Not detected KPC-Carbap Res Gene PCR Not detected 03/02/22 03/03/22 03/03/22 17:53 06:28 06:28 WBC 7.7 RBC 3.64 L Hgb 10.5 L Hct 31.5 L MCV 86.4 MCH 28.9 MCHC 33.4 RDW 15.1 H Plt Count 247 Neut % (Auto) 79.9 H Lymph % (Auto) 9.4 L [place] % (Auto) 7.7 Eos % (Auto) 2.0 Baso % (Auto) 1.0 Neut # (Auto) 6200 Lymph # (Auto) 700 L [place] # (Auto) 600 Eos # (Auto) 200 Baso # (Auto) 100 Sodium 137 137 Potassium 4.2 4.7 Chloride 101 101 Carbon Dioxide 26 29 BUN 53 H 57 H Creatinine 2.84 H 2.97 H Estimated GFR 22 L 21 L BUN/Creatinine Ratio 18.7 19.2 Glucose 173 H 134 H Calcium 7.9 L 8.1 L Magnesium 2.0 Total Bilirubin 1.1 AST 142 H ALT 138 H Alkaline Phosphatase 335 H D Troponin I Total Protein 5.6 L Albumin 2.5 L Globulin 3.1 Albumin/Globulin Ratio 0.8 L A. baumannii (PCR) Bella albicans (PCR) C. glabrata (PCR) C. krusei (PCR) C. parapsilosis (PCR) C. tropicalis (PCR) Enterobacteriac sp PCR E. cloacae complex PCR Enterococcus sp PCR E. coli (PCR) H. influenzae (PCR) Hepatitis A IgM Ab Hep Bs Antigen Hep B Core IgM Ab Hepatitis C Antibody Hep C Ab Signal/Cutoff Klebsiella oxytoca PCR Klebsiella pneumoniae List. monocytogenes PCR N. meningitidis (PCR) Proteus species (PCR) Serratia marcescens PCR Staphylococcus sp PCR Staph aureus (PCR) Streptococcus sp PCR Group A Strep (PCR) Strep agalactiae (PCR) Strep pneumoniae (PCR) P. aeruginosa (PCR) KPC-Carbap Res Gene PCR PFSH Medical History Bladder cancer BPH loc w urin obs/LUTS History of bladder cancer History of urinary urgency Hyperlipidemia Morbid obesity Renal calculus Scrotum swelling Sleep apnea TIA (transient ischemic attack) Urge incontinence Surgical History Hx of circumcision Hx of cystoscopy Hx of hernia repair Family History Father Cancer Pulmonary embolism Brother Cancer Hypertension IV drug user Mother Hypertension Social History household members: spouse Smoking Status: Former smoker alcohol intake: current Assessment & Plan Assessment & Plan narrative: resolving cholecystitis still undergoing treatment for bacteremia. Worsening renal function. Plan: no lap lyle at this time. Time Spent With Patient Time with patient: less than 30 minutes Critical Care time: I spent a total of [] minutes of critical care time on this patient's care today; this time is exclusive of procedural time. Quality VTE Deep Vein Thrombosis/Pulmonary Embolism Present on Admission: No
[2022-03-03] MEDS: carvediloL 12.5 MG TABLET PO ×2 (08:42→21:52)
[2022-03-03] MEDS: TAMSULOSIN 0.4 MG CAPSULE 0.8 MG PO (08:42)
[2022-03-03] MEDS: SPIRONOLACTONE 25 MG TABLET PO (08:42)
--- NOTE | 2022-03-03 12:50 | P.PN_ITS ---
Subjective Subjective Date Patient Seen: 03/03/22 Interval history: No complaints today. Creatinine continues to rise slightly, surgery held for today. Exam Vital Signs (past 8 hours): - 03/03/22 08:00 03/03/22 08:00 03/03/22 08:42 Temperature 97.5 F L Pulse Rate 70 70 Respiratory Rate 17 Blood Pressure 176/88 H 176/88 H Pulse Oximetry 98 99 Oxygen Delivery Method Room Air Oxygen Flow Rate 0 0 03/03/22 12:00 03/03/22 12:00 Temperature 97.6 F Pulse Rate 66 Respiratory Rate 16 Blood Pressure 157/70 H Pulse Oximetry 98 99 Oxygen Delivery Method Room Air Oxygen Flow Rate 0 0 Oxygen Delivery Method Room Air Oxygen Flow Rate 0 Narrative Exam Narrative: Gen: Alert, oriented, chronically ill appearing 76 y.o. 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 Extremities: venous stasis changes, no LE edema, no joint effusions Psyche: normal mood and affect. Objective Labs Result Diagrams: 03/03/22 06:28 03/03/22 06:28 Labs: Laboratory Results - last 24 hr 03/01/22 03/02/22 03/02/22 10:50 06:20 17:53 WBC RBC Hgb Hct MCV MCH MCHC RDW Plt Count Neut % (Auto) Lymph % (Auto) [place] % (Auto) Eos % (Auto) Baso % (Auto) Neut # (Auto) Lymph # (Auto) [place] # (Auto) Eos # (Auto) Baso # (Auto) Sodium 137 Potassium 4.2 Chloride 101 Carbon Dioxide 26 BUN 53 H Creatinine 2.84 H Estimated GFR 22 L BUN/Creatinine Ratio 18.7 Glucose 173 H Calcium 7.9 L Magnesium Total Bilirubin AST ALT Alkaline Phosphatase Total Protein Albumin Globulin Albumin/Globulin Ratio A. baumannii (PCR) Not detected Bella albicans (PCR) Not detected C. glabrata (PCR) Not detected C. krusei (PCR) Not detected C. parapsilosis (PCR) Not detected C. tropicalis (PCR) Not detected Enterobacteriac sp PCR Detected H E. cloacae complex PCR Not detected Enterococcus sp PCR Not detected E. coli (PCR) Not detected H. influenzae (PCR) Not detected Hepatitis A IgM Ab Negative Hep Bs Antigen Negative Hep B Core IgM Ab Negative Hepatitis C Antibody <0.1 Hep C Ab Signal/Cutoff Comment Klebsiella oxytoca PCR Not detected Klebsiella pneumoniae Detected H List. monocytogenes PCR Not detected N. meningitidis (PCR) Not detected Proteus species (PCR) Not detected Serratia marcescens PCR Not detected Staphylococcus sp PCR Not detected Staph aureus (PCR) Not detected Streptococcus sp PCR Not detected Group A Strep (PCR) Not detected Strep agalactiae (PCR) Not detected Strep pneumoniae (PCR) Not detected P. aeruginosa (PCR) Not detected KPC-Carbap Res Gene PCR Not detected 03/03/22 03/03/22 06:28 06:28 WBC 7.7 RBC 3.64 L Hgb 10.5 L Hct 31.5 L MCV 86.4 MCH 28.9 MCHC 33.4 RDW 15.1 H Plt Count 247 Neut % (Auto) 79.9 H Lymph % (Auto) 9.4 L [place] % (Auto) 7.7 Eos % (Auto) 2.0 Baso % (Auto) 1.0 Neut # (Auto) 6200 Lymph # (Auto) 700 L [place] # (Auto) 600 Eos # (Auto) 200 Baso # (Auto) 100 Sodium 137 Potassium 4.7 Chloride 101 Carbon Dioxide 29 BUN 57 H Creatinine 2.97 H Estimated GFR 21 L BUN/Creatinine Ratio 19.2 Glucose 134 H Calcium 8.1 L Magnesium 2.0 Total Bilirubin 1.1 AST 142 H ALT 138 H Alkaline Phosphatase 335 H D Total Protein 5.6 L Albumin 2.5 L Globulin 3.1 Albumin/Globulin Ratio 0.8 L A. baumannii (PCR) Bella albicans (PCR) C. glabrata (PCR) C. krusei (PCR) C. parapsilosis (PCR) C. tropicalis (PCR) Enterobacteriac sp PCR E. cloacae complex PCR Enterococcus sp PCR E. coli (PCR) H. influenzae (PCR) Hepatitis A IgM Ab Hep Bs Antigen Hep B Core IgM Ab Hepatitis C Antibody Hep C Ab Signal/Cutoff Klebsiella oxytoca PCR Klebsiella pneumoniae List. monocytogenes PCR N. meningitidis (PCR) Proteus species (PCR) Serratia marcescens PCR Staphylococcus sp PCR Staph aureus (PCR) Streptococcus sp PCR Group A Strep (PCR) Strep agalactiae (PCR) Strep pneumoniae (PCR) P. aeruginosa (PCR) KPC-Carbap Res Gene PCR PFSH Medical History Bladder cancer BPH loc w urin obs/LUTS History of bladder cancer History of urinary urgency Hyperlipidemia Morbid obesity Renal calculus Scrotum swelling Sleep apnea TIA (transient ischemic attack) Urge incontinence Surgical History Hx of circumcision Hx of cystoscopy Hx of hernia repair Family History Father Cancer Pulmonary embolism Brother Cancer Hypertension IV drug user Mother Hypertension Social History household members: spouse Smoking Status: Former smoker alcohol intake: current Assessment & Plan Assessment & Plan narrative: Raymundo Truong will be admitted for treatment and management of acute cholecystitis w/gallstones. Sepsis without shock, secondary to Acute cholecystitis w/gallstones and bacteremia, present on admission with acute hepatic failure, GOLDIE, CHF exacer bation * Appreciate general surgery consultation, patient not quite medically optimized and stable from cholecystitis. Once creatinine starts to trend down he will be medically optimized assuming there is not a severe decline in his kidney function from presumed baseline. * continue zoysn for cholecystitis * continue to follow kidney function, suspect in setting of sepsis. Acute liver failure, present on admission * Suspected in the setting of bile duct obstruction, MRCP negative for obstructing stone now. May also be from sepsis. Continues to improve today. * Holding rosuvastatin and fenofibrate in setting of acute liver injury * management as noted above. * hepatitis panel pending Acute kidney injury, present on admission, with CKD * Creatinine up to 2.9 today. Suspect in setting of sepsis. May be volume overload as well. Appears euvolemic today after diuresis so will hold on additional lasix therapy for now. * Continue daily monitoring of his renal function. Baseline creatinine around 1.8-2.0 based on previous results. * MRI of the abdomen indicated normal kidneys without hydronephrosis * If worsening consider contacting his artillery or naval gunfire observer, Dr. Saran Jensen at [facility] * Kidney disease is regarded to be due to diabetic nephropathy based on a renal biopsy * Holding lisinopril in the setting of an GOLDIE. 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 Dan, dirt shoveler at [facility] * Troponin was normal on presentation to the emergency department and has bumped up slightly likely due to CHF exacerbation and acute kidney injury. Now improving. * Limited echo with improved EF compared to prior studies. No focal wall motion abnormalities. * Continue home dose of carvedilol * will hold on additional lasix now given GOLDIE worsening today. History of TIA, anticoagulated on apixaban. * Holding AC in the setting of anticipated surgery Myocardial injury - elevated troponin likely in setting of presumed CAD (based on prior stress testing) - continue ASA and statin - high risk cardiac patient, will need to check post operative troponins following surgery. VTE Prophylaxis: Wells risk score 0 Bilateral SCDs Pharmacological VTE prophylaxis contraindicated in the setting of anticipated surgery. Consultants: general surgery Dispo: likely home, timing in 3-4 days as needs optimization prior to lyle cystectomy and will need cardiac monitoring post-operatively given high cardiac risk. Code status: Full code as discussed with the patient who identifies his Cristela as his surrogate and POA. VTE Deep Vein Thrombosis/Pulmonary Embolism Present on Admission: No MIPS - Admit I confirm the patient?s Advance Care Plan is present, Code status is documented, Surrogate decision maker is in patient?s record: Yes MIPS - DC The patient has current or prior documentation of left ventricular ejection fraction (LVEF) less than 40%, or moderate or severely depressed left ventricular systolic function.: No COVID-19 COVID-19 status: Negative Result date/Date tested (Pos, Neg/Pending): 03/01/22 Time Spent With Patient Critical Care time: I spent a total of [] minutes of critical care time on this patient's care today; this time is exclusive of procedural time. Quality VTE Deep Vein Thrombosis/Pulmonary Embolism Present on Admission: No
[2022-03-04] VITALS: BP 167/69; PULSE 64; RESP 16; TEMP 36.7; O2SAT 99
[2022-03-04] MEDS: PIPERACILLIN/TAZO 3.375 GM in SODIUM CHLORIDE 0.9% 100 ML IV ×2 (01:58→08:10)
[2022-03-04 04:00] VITALS: BP 156/73; PULSE 66; RESP 16; TEMP 36.9; O2SAT 98
[2022-03-04 05:19] LABS: Add Manual Diff / Slide Review NO; Basophils Absolute Auto 100 /uL (0-100); Eosinophils Absolute Auto 200 /uL (0-450); Eosinophils Percent Auto 2.7 % (2-4); Hematocrit 32.3 % (41-53); Hemoglobin 10.9 g/dL (13.5-17.5); Lymphocytes Absolute Auto 1200 /uL (1100-4500); Mean Corpuscular HGB Conc 33.6 % (30-36); Mean Corpuscular Hemoglobin 28.7 PG (26-34); Mean Corpuscular Volume 85.4 fL (80-100); Monocytes Absolute Auto 600 /uL (0-900); Monocytes Percent Auto 9.9 % (3-14); Neutrophils Absolute Auto 4400 /uL (1500-7000); Neutrophils Percent Auto 67.4 % (50-75); Platelet Count 261 X10^3/uL (150-400); Red Blood Cell Count 3.78 X10^6/uL (4.5-5.9); Red Cell Distribution Width 15.2 % (11.6-14.8); White Blood Cell Count 6.5 X10^3/uL (4.5-11.0)
[2022-03-04 05:29] LABS: Alanine Aminotransferase 134 IU/L (<50); Albumin 2.5 g/dL (3.5-5.0); Albumin Globulin Ratio 0.8 (1.0-2.8); Alkaline Phosphatase 485 U/L (38-126); Aspartate Aminotransferase 211 IU/L (17-59); BUN Creatinine Ratio 20.1 (6-22); Bilirubin Total 1.2 mg/dL (0.2-1.3); Blood Urea Nitrogen 55 mg/dL (9-20); Carbon Dioxide 26 mmol/L (22-32); Chloride 103 mmol/L (98-107); Estimated Glomerular Filt Rate 24 mL/min (>60); Globulin 3.1 g/dL (1.7-4.1); Glucose 155 mg/dL (80-110); HEMOLYSIS < 15 (0-50); Sodium 136 mmol/L (137-145); Total Protein 5.6 g/dL (6.3-8.2)
[2022-03-04 08:00] VITALS: O2SAT 98
[2022-03-04 08:09] VITALS: BP 156/73; PULSE 66
[2022-03-04] MEDS: TAMSULOSIN 0.4 MG CAPSULE 0.8 MG PO (08:09)
[2022-03-04] MEDS: carvediloL 12.5 MG TABLET PO (08:09)
[2022-03-04] MEDS: SPIRONOLACTONE 25 MG TABLET PO (08:09)
[2022-03-04 09:15] VITALS: BP 145/75; PULSE 60; RESP 18; TEMP 36.2; O2SAT 100
[2022-03-04 12:00] VITALS: O2SAT 98
--- NOTE | 2022-03-04 12:49 | P.DS_ITS ---
History of Present Illness History of Present Illness Date Patient Seen: 03/04/22 Chief complaint: Abdominal pain, reported confusion Narrative: MAXWELL Cristobal: Raymundo Truong is a pleasant 76 y.o. former smoker with diet controlled diabetes, CKD stage 3, history of a TIA anticoagulated on apixaban, history of prostate cancer, HFpEF, presented to the ED at the request of his who stated he had thrown up this am, and was confused. He does not recall being confused, but states he has had epigastric abdmominal pain, exposive diarrhea to the point of being incontinent of stool which is new for him, denies seeing blood in his stool, and does not recall vomiting. He is a little tangential with his history. He has been on a weight loss program stating the water pills have been largely responsible. States he previously weighed 340 lbs, is now 194 lbs which he takes lasix if his weight exceeds 195 lbs and states he has lost 80 lbs in the last couple of months, intentionally. In the emergency department he was administered 40 mg of IV Lasix and a Verde was placed. He is afebrile, blood pressure 143/74, heart rate 73, respiratory rate 18, oxygen saturation of 97% on room air he weighs 86.6 kg with a BMI of 25.2. Chest x-ray reported a likely small right-sided pleural effusion, ultrasound of the abdomen reported acute cholecystitis with gallstones, thickened gallbladder wall, pericholecystic fluid and a positive Reid sign. CT of the abdomen and pelvis indicated continued suspicion for cholecystitis, nonobstructing 6 mm kidney stone, kidney nodules and small bilateral pleural effusions right larger than left. MRI of the abdomen indicated gallstones with minimal pericholecystic fluid and a 13 mm cyst within the head of the pancreas and again small bilateral pleural effusions right larger than left. He does not have a white count, he is mildly anemic with a hemoglobin and hematocrit of 11.7 and 35.8 respectively, he has a mild left shift of 8800, BUN is 43, creatinine 2.34 with a EGFR of 28, this is abnormal from his baseline, glucose is 139, total bilirubin 2.7, AST 5555, ALT 271, alk-phos 309, total creatinine kinase is 42, proBNP is 5780, troponin did increase from normal to 0.62 likely demand ischemia, albumin is 3.0, lipase is 1900, there is presence of bilirubin in his urine and COVID-19 PCR is negative. FH: Reviewed with the patient and updated as below. Discharge Providers Provider Date of admission: 03/01/22 17:44 Discharge Date: 03/04/22 Primary care physician: Milton Rodriguez MD Consults: 03/01/22 17:42 Consult to General Surgery Stat Comment: Consulting Provider: Ashkan Greene Reason for consultation: Acute cholecystitis Has provider been notified: Yes 03/02/22 06:00 Consult to Physician Routine Comment: Consulting Provider: Ashkan Greene Reason for consultation: acute cholecystitis Has provider been notified: Yes Discharge provider: Jesus Rutherford DO Summary Hospital Course Discharge Diagnosis: Please see hospital course by problem list noted below: Hospital Course: Sepsis without shock, secondary to Acute cholecystitis w/gallstones and Klebsiella bacteremia, present on admission with acute hepatic failure, GOLDIE, CHF exacerbation * Appreciate general surgery consultation. Patient improved with antibiotic therapy and was able to tolerate a diet and had minimal pain. Surgery was initially planned, but ultimately patient elected for discharge home at this time on continued antibiotics. He is planned to undergo cholecystectomy as an outpatient in 5 days (next Wednesday). * continued zoysn for cholecystitis, narrowed to augmentin at discharge for 10 additional days for bacteremia. * Creatinine peaked around 3 (baseline near 2), then downtrended. Acute liver failure, present on admission * Suspected in the setting of bile duct obstruction, MRCP negative for obstructing stone now. May also be from sepsis. Continues to improve today. * Held rosuvastatin and fenofibrate in setting of acute liver injury, okay to resume at discharge * management as noted above. Acute kidney injury, present on admission, with CKD * Creatinine up to just under 3 at the peak. Suspect in setting of sepsis. May be volume overload as well but he was diuresed given CT findings on admission with worsening. Creatinine did improve as lasix was held and he had no CHF symptoms after admission. * Baseline creatinine around 1.8-2.0 based on previous results. Improved to 2.7 on the day of discharge. * MRI of the abdomen indicated normal kidneys without hydronephrosis * Kidney disease is regarded to be due to diabetic nephropathy based on a renal biopsy * Held lisinopril, but can be resumed at discharge. 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 Now improving. * Limited echo with improved EF compared to prior studies. No focal wall motion abnormalities. * Continued home dose of carvedilol * Can resume his home lasix at the time of discharge. As noted above, he init ially appeared to be volume overloaded and was diuresed but was held given GOLDIE. History of TIA, anticoagulated on apixaban. * Holding AC in the setting of anticipated surgery and recommend continuing to hold prior to surgery. Myocardial injury ?- elevated troponin likely in setting of presumed CAD (based on prior stress testing), and GOLDIE, and sepsis ?- continued ASA and statin - Echocardiogram showed no significant changes compared to prior studies. Time Spent with Patient Time spent: Greater than 30 minutes Exam Vital Signs (past 8 hours): - 03/04/22 08:09 03/04/22 08:00 03/04/22 09:15 Temperature 97.2 F L Pulse Rate 66 60 Respiratory Rate 18 Blood Pressure 156/73 H 145/75 H Pulse Oximetry 98 100 Oxygen Delivery Method Room Air Oxygen Flow Rate 0 03/04/22 12:00 Temperature Pulse Rate Respiratory Rate Blood Pressure Pulse Oximetry 98 Oxygen Delivery Method Room Air Oxygen Flow Rate 0 Oxygen Delivery Method Room Air Oxygen Flow Rate 0 Narrative Exam Narrative: Gen: Alert, oriented, chronically ill appearing 76 y.o. 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 Extremities: venous stasis changes, no LE edema, no joint effusions Psyche: normal mood and affect. Objective Labs Result Diagrams: 03/04/22 05:10 03/04/22 05:10 Labs: Laboratory Results - last 24 hr 03/04/22 03/04/22 05:10 05:10 WBC 6.5 RBC 3.78 L Hgb 10.9 L Hct 32.3 L MCV 85.4 MCH 28.7 MCHC 33.6 RDW 15.2 H Plt Count 261 Neut % (Auto) 67.4 Lymph % (Auto) 18.0 L Dukes % (Auto) 9.9 Eos % (Auto) 2.7 Baso % (Auto) 2.0 Neut # (Auto) 4400 Lymph # (Auto) 1200 Dukes # (Auto) 600 Eos # (Auto) 200 Baso # (Auto) 100 Sodium 136 L Potassium 4.0 Chloride 103 Carbon Dioxide 26 BUN 55 H Creatinine 2.73 H Estimated GFR 24 L BUN/Creatinine Ratio 20.1 Glucose 155 H Calcium 8.0 L Magnesium 2.0 Total Bilirubin 1.2 AST 211 H ALT 134 H Alkaline Phosphatase 485 H Total Protein 5.6 L Albumin 2.5 L Globulin 3.1 Albumin/Globulin Ratio 0.8 L PFSH Medical History Bladder cancer BPH loc w urin obs/LUTS History of bladder cancer History of urinary urgency Hyperlipidemia Morbid obesity Renal calculus Scrotum swelling Sleep apnea TIA (transient ischemic attack) Urge incontinence Surgical History Hx of circumcision Hx of cystoscopy Hx of hernia repair Family History Father Cancer Pulmonary embolism Brother Cancer Hypertension IV drug user Mother Hypertension Social History household members: spouse Smoking Status: Former smoker alcohol intake: current Discharge Plan Discharge Plan Patient Disposition: Home Provider Discharge Comment: You were admitted to the hospital with a gallbladder infection. The bacteria that caused this did enter your blood stream. You will need to complete two weeks of antibiotics total for this infection. Surgery to take out your gallbladder is scheduled for Wednesday, you should continue to hold your apixban until after surgery. You can resume your home medications once at home. The surgery office will call you with a time on Wednesday, labs ordered for Wednesday, per the surgeon the surgery should be around 2pm. Discharge orders & Medications Prescriptions: New amoxicillin-pot clavulanate 875-125 mg tablet 1 tab PO BID 10 Days Qty: 20 0RF Continued tamsulosin 0.4 mg capsule 0.8 mg PO DAILY Qty: 180 3RF rosuvastatin 20 mg tablet 20 mg PO DAILY Qty: 90 3RF carvedilol 12.5 mg tablet 12.5 mg PO BID Qty: 90 3RF Rx Instructions: must administer with a meal/food lisinopril 40 mg tablet 40 mg PO DAILY spironolactone 25 mg tablet 25 mg PO DAILY fenofibrate 54 mg tablet 108 mg PO DAILY Qty: 180 3RF oxybutynin chloride 5 mg tablet 5 mg PO BID Qty: 180 3RF furosemide [Lasix] 20 mg tablet 40 mg PO DAILY Rx Instructions: 20-60 mg a day w/ adjustment for daily weights cholecalciferol (vitamin D3) 125 mcg (5,000 unit) capsule 125 mcg PO QWEEK Qty: 1 0RF coenzyme Q10 100 mg capsule 100 mg PO DAILY Centrum Silver 400-250 mcg tablet,chewable 1 tab PO DAILY Tylenol Extra Strength 500 mg powder in packet 500 mg PO QID PRN (Reason: Pain (Scale Score 4-6)) triamcinolone acetonide 0.1 % cream 1 applic topical BID Qty: 453.6 2RF ergocalciferol (vitamin D2) [Vitamin D2] 1,250 mcg (50,000 unit) capsule 1 unit PO QWEEK Discontinued apixaban 5 mg tablet 5 mg PO BID Qty: 180 3RF Follow up/Referrals: Saima Mcginnis MD [Physician] - 03/09/22 1:00 pm (03/09 check in at [facility] @ 1:00 pm for covid test they will then send you to the surgery department @ [facility] for a 2:00 surgery time for Cholecystectomy with Dr Mcginnis ) Milton Rodriguez MD [Primary Care Provider] - Other Ambulatory Orders: Complete Blood Count NO DIFF (Routine) Timeframe: 2 Days Facility: [facility] - Location: Laboratory Ordered By: Jesus Rutherford Comprehensive Metabolic Panel (Routine) Timeframe: 2 Days Facility: [facility] - Location: Laboratory Ordered By: Jesus Rutherford Prothrombin Time INR (Routine) Timeframe: 2 Days Facility: [facility] - Location: Laboratory Ordered By: Jesus Rutherford Partial Thromboplastin Time (Routine) Timeframe: 2 Days Facility: [facility] - Location: Laboratory Ordered By: Jesus Rutherford Diet/Activity/Treatments Diet: Diet as Tolerated Activity: As tolerated Visit Report/Discharge Packet Instructions: How to Prevent Falls Discharge Data Primary Care Provider: Milton Rodriguez VTE Deep Vein Thrombosis/Pulmonary Embolism Present on Admission: No
--- NOTE | 2022-03-04 13:55 | CM.DPC ---
DCP Note Per hospitalist, patient will d/c to home today and have outpatient gallbladder surgery on Wednesday03/09/22. CYLINDER FILLER enters room to inquire about any further DCP needs. Patient endorses he is comfortable going home with support of his and with FWW at home. Patient denies any further DCP needs at this time. It is reported that his and daughter are coming to pick him up upon d/c to home. Plan: patient to d/c to home upon medical clearance via POV with family, patient to have outpatient gallbladder surgery on Wednesday. Courtney Díaz, PROTOTYPE SEWER
--- NOTE | 2022-03-04 14:50 | PT.IIE ---
Current Diagnoses Calculus of gallbladder with acute cholecystitis without obstruction (03/01/22) Acute cholecystitis (03/01/22) Surgery Performed Operation Date: 03/02/22 14:15 <No data on this case meets the specified criteria> Surgical History (Last Reviewed 03/01/22 @ 20:45 by MAXWELL Liz) Hx of circumcision Hx of cystoscopy Hx of hernia repair Medical History (Last Reviewed 03/02/22 @ 10:46 by Kalpana Moran MD) Bladder cancer BPH loc w urin obs/LUTS History of bladder cancer History of urinary urgency Hyperlipidemia Morbid obesity Renal calculus Scrotum swelling Sleep apnea TIA (transient ischemic attack) Urge incontinence Physical Therapy Inpatient Evaluation/Re-Eval M1 PT/OT-IP Prior Functional Status Start: 03/04/22 15:28 Freq: NEEDED Status: Active Protocol: Document 03/04/22 14:50 AB (Rec: 03/04/22 15:37 AB [id number]) Medical Review Prior Functional Status Medical History Reviewed Yes Communication able to make needs known Mobility and Gait pt stated that he is independent with all mobilities and ambulation without AD Social History Household Members spouse Living Arrangements Apartment/Condo Number of Floors (Floors) Two Floors Number of Stairs To Enter/Railing? pt stays on main level of the house without steps to enter Home Environment Standard Height Toilet,Walk in Shower Home Equipment Front Wheel Walker,Four Wheel Walker,Shower Seat with Backrest,Hand Held Shower,Grab Bars Near Toilet Additional Social History Comment pt sleeps on a recliner spouse stated that she will not be able to provide physical assist to pt M2 PT-IP Current Condition Start: 03/04/22 15:28 Freq: NEEDED Status: Active Protocol: Document 03/04/22 14:50 AB (Rec: 03/04/22 15:37 AB [id number]) Physical Therapy Current Condition Current Condition Evaluation Date 03/04/22 Treatment Diagnosis sepsis; cholecystitis; difficulty in walking Onset Date 03/01/22 M3 PT-IP Subjective Start: 03/04/22 15:28 Freq: NEEDED Status: Active Protocol: Document 03/04/22 14:50 AB (Rec: 03/04/22 15:37 AB [email or web address]) Subjective Physical Therapy Visit Type Type Initial Evaluation Visit Start Time 14:50 Visit Stop Time 15:25 Total Visit Minutes 35 Number of BOARDING MOTHER Visits 0 Physical Therapy Visit Comments Patient Comments agreeable to do PT Therapy Pain Assessment Pain Present Pain Present Denied Pain M4 PT-IP Mobility and Gait Start: 03/04/22 15:28 Freq: NEEDED Status: Active Protocol: Document 03/04/22 14:50 AB (Rec: 03/04/22 15:37 AB [email or web address]) PT-Transfer Assessment Sit to and From Stand Sit to and from Stand Standby Assistance Equipment Transfer Assistive Device None,Gait Belt,Front Wheeled Walker,4 Wheeled Walker Orthotic/Prosthetic Devices or Brace: No Comments Mobility Comments pt sitting on chair and family in room. completed sit to stand SBA and ambulated in room using FWW SBA ~ 40 ft. assessed ambulation using 4WW and completed 40ft SBA. pt can be impulsive. assess ambulation without AD SBA to CGA with LOB x 1 with recovery . presents with dragging gait with increase B hip ER with R >L . spouse stated that pt had 3 falls. educated pt regarding safety. recommending use of 4WW at this time and pt agreed. left pt seated on chair. pt and family without other concerns. Gait Assessment Gait Gait Assistance Required: Standby Assistance,1 Person Assist Distance (Feet) 40 Able to Maintain Weight Bearing Status Yes During Gait Assistive Devices Assistive Device None,Gait Belt,Front Wheeled Walker,4 Wheeled Walker Orthotic/Prosthetic Devices or Brace: No Gait Deviations General Gait Pattern Antalgic,Decreased Stride Length,Decreased Feet Clearance,Flexed Trunk,Wide Based Gait Factors Limiting Gait Function Factors Limiting Gait Function Decreased Activity Tolerance, Decreased Strength,Poor Balance,Poor Safety Awareness PT-Balance Assessment Sitting Balance and Reactions Static Sitting Balance Ability Normal Dynamic Sitting Balance Ability Normal Standing Balance and Reactions Static Standing Balance Ability Good Dynamic Standing Balance Ability Fair Device Used without AD M5 PT-IP Objective Assessments Start: 03/04/22 15:28 Freq: NEEDED Status: Active Protocol: Document 03/04/22 14:50 AB (Rec: 03/04/22 15:37 AB [email or web address]) Orientation Orientation/Cognition Level of Alertness Alert Orientation Name,Place,Situation Language Function Ability No Deficits Noted Safety Awareness Decreased Safety Awareness Memory Description No Deficits Noted Gross Range of Motion Lower Extremity ROM Assessment Within Functional Limits Strength Lower Extremity Strength Assessment Right Impaired Hip 3+/5 Coordination Assessment Gross Coordination Gross Coordination WNL Sensation Assessment Sensation Gross Sensation WNL Muscle Tone Muscle Tone WNL Yes M6 PT-IP Treatment Start: 03/04/22 15:28 Freq: NEEDED Status: Active Protocol: Document 03/04/22 14:50 AB (Rec: 03/04/22 15:37 AB [id number]) Physical Therapy Treatment Education Education Provided Safety M7 PT-IP Assessment and Plan Start: 03/04/22 15:28 Freq: NEEDED Status: Active Protocol: Document 03/04/22 14:50 AB (Rec: 03/04/22 15:37 AB [email or web address]) PT Summary Assessment and Plan Potential Rehabilitation Potential Fair Status of Condition at Evaluation Stable Summary Impairments Pain,ROM,Strength,Balance, Coordination,Sensation,Tone, Cognition,Bed Mobility, Transfers,Gait,Activity Tolerance Assessment Summary pt requiring SBA with mobility using FWW/4WW. requires SBA to CGA without AD and with LOB . recommending use of 4WW at this time and pt agreed. pt plans to go home today. pt stated that he is going to have a gall bladder surgery this coming wednesday. Recommending HHPT after surgery if pt goes home after surgery. Goals Bed Mobility Goal Independent Transfer Goal Independent Gait Goal Independent Gait Distance 300 Days to Meet Goals 3 Frequency of Treatment Frequency Of Treatment Once a Day Treatment Plan Physical Therapy Treatment Plan Bed Mobility Training,Transfer Training,Gait Training, Therapeutic Exercise,Balance Retraining,Discharge Planning, Hot or Cold Pack,Neuromuscular Re-ed,Coordination Retraining Recommendations To Nursing Amount of Assist Needed Standby Assistance Discharge Recommendations PT Discharge Recommendations Home with Assistance,Home Health Transportation Needs at Discharge Private Vehicle
== END 2022-03-04 14:00 | disposition home or self-care (01) | DRG 871 ==
LOC: ED 17:44 → AC 17:45
PROVIDERS: Nurse Practitioner Family; Admitting Provider Internal Medicine; Emergency Provider Emergency Medicine; PCP Family Medicine; Referring Provider Emergency Medicine; Visit Provider Internal Medicine
DX: A41.9 Sepsis, unspecified organism (principal); I50.33 Acute on chronic diastolic (congestive) heart failure; K72.00 Acute and subacute hepatic failure without coma; K80.00 Calculus of gallbladder with acute cholecystitis without obstruction; N17.9 Acute kidney failure, unspecified; I5A Non-ischemic myocardial injury (non-traumatic); R65.20 Severe sepsis without septic shock; B96.1 Klebsiella pneumoniae [K. pneumoniae] as the cause of diseases classified elsewhere; E11.22 Type 2 diabetes mellitus with diabetic chronic kidney disease; N18.30 Chronic kidney disease, stage 3 unspecified; N40.0 Benign prostatic hyperplasia without lower urinary tract symptoms; E78.5 Hyperlipidemia, unspecified; Z87.891 Personal history of nicotine dependence; Z86.73 Personal history of transient ischemic attack (TIA), and cerebral infarction without residual deficits; Z79.01 Long term (current) use of anticoagulants; Z20.822 Contact with and (suspected) exposure to COVID-19
CPT/HCPCS: 36415; 51798; 71045; 74176; 74183; 76705; 80048; 80053; 80074; 80320; 81001; 82550; 83605; 83690; 83735; 83880; 84484; 85025; 87040; 87077; 87086; 87150; 87186; 87635; 93005; 93010; 93307; 96365; 96375; 97161; 99222; 99231; 99284; 99285; C9803; A9579; J1940; J2543

== ENCOUNTER 2022-03-04 19:20 | Emergency (ER) | payer MEDICARE, SELFPAY ==
[2022-03-01 17:46] VITALS: BMI 25.2
[2022-03-04 19:26] VITALS: BP 145/69; PULSE 63; RESP 20; TEMP 36.1; O2SAT 99; BMI 24.4
[2022-03-04 19:52] LABS: Add Manual Diff / Slide Review NO; Basophils Absolute Auto 100 /uL (0-100); Basophils Percent Auto 0.8 % (0-2); Eosinophils Absolute Auto 100 /uL (0-450); Hematocrit 33.5 % (41-53); Hemoglobin 11.2 g/dL (13.5-17.5); Lymphocytes Absolute Auto 1000 /uL (1100-4500); Lymphocytes Percent Auto 15.8 % (25-40); Mean Corpuscular HGB Conc 33.4 % (30-36); Mean Corpuscular Hemoglobin 28.7 PG (26-34); Mean Corpuscular Volume 85.8 fL (80-100); Monocytes Absolute Auto 400 /uL (0-900); Monocytes Percent Auto 6.5 % (3-14); Neutrophils Absolute Auto 4900 /uL (1500-7000); Neutrophils Percent Auto 74.9 % (50-75); Platelet Count 289 X10^3/uL (150-400); Red Blood Cell Count 3.91 X10^6/uL (4.5-5.9); White Blood Cell Count 6.5 X10^3/uL (4.5-11.0)
[2022-03-04 20:01] LABS: Lactate (Lactic Acid) 0.9 mmol/L (0.7-2.1)
[2022-03-04 20:02] LABS: Alanine Aminotransferase 150 IU/L (<50); Albumin 2.8 g/dL (3.5-5.0); Albumin Globulin Ratio 0.8 (1.0-2.8); Alkaline Phosphatase 513 U/L (38-126); Aspartate Aminotransferase 140 IU/L (17-59); BUN Creatinine Ratio 19.8 (6-22); Bilirubin Total 0.8 mg/dL (0.2-1.3); Blood Urea Nitrogen 54 mg/dL (9-20); Calcium 8.2 mg/dL (8.4-10.2); Carbon Dioxide 29 mmol/L (22-32); Chloride 100 mmol/L (98-107); Estimated Glomerular Filt Rate 24 mL/min (>60); Globulin 3.3 g/dL (1.7-4.1); Glucose 165 mg/dL (80-110); HEMOLYSIS < 15 (0-50); Lipase 449 U/L (23-300); Potassium 4.6 mmol/L (3.4-5.1); Sodium 135 mmol/L (137-145); Total Protein 6.1 g/dL (6.3-8.2)
[2022-03-04 20:03] LABS: INR 1.1 (0.9-1.3); Prothrombin Time 12.8 SECONDS (10.1-12.7)
--- NOTE | 2022-03-04 20:03 | ED_ITS ---
HPI - Abdominal Pain General Chief Complaint: Abdominal Pain Stated Complaint: bad abdominal pain, nausea, dc'd this afternoon Time Seen by Provider: 03/04/22 20:00 Source: patient Mode of arrival: Ambulatory History of Present Illness HPI narrative: Patient is a 76-year-old male with recent diagnosis of acute cholecystitis and cholelithiasis with Klebsiella bacteremia admitted to the hospital on 03/01/2022 he had troponin release he was discharged off few hours ago. He went home to sleep however he developed severe abdominal pain and was very weak. No nausea or vomiting he was having pain more on the right side and his brought him to the emergency department. He was discharged home on Augmentin but he had not taken it yet was not given any pain medications. Patient says that he did have any pain in the hospital and did need pain medicine at home which is why this was alarming. He is scheduled to have a cholecystectomy in 5 days. Related Data Home Medications Medication Instructions Recorded Confirmed lisinopril 40 mg tablet 40 mg PO DAILY 09/18/20 03/01/22 spironolactone 25 mg tablet 25 mg PO DAILY 11/06/21 03/01/22 acetaminophen 500 mg oral powder 500 mg PO QID PRN Pain (Scale 02/17/22 03/01/22 packet (Tylenol Extra Strength) Score 4-6) coenzyme Q10 100 mg capsule 100 mg PO DAILY 02/17/22 03/01/22 furosemide 20 mg tablet (Lasix) 40 mg PO DAILY 02/17/22 03/01/22 multivit with min-folic 1 tab PO DAILY 02/17/22 03/01/22 acid-lutein 400 mcg-250 mcg chewable tablet (Centrum Silver) ergocalciferol (vitamin D2) 1,250 1 unit PO QWEEK 03/01/22 03/01/22 mcg (50,000 unit) capsule (Vitamin D2) Previous Rx's Medication Instructions Recorded rosuvastatin 20 mg tablet 20 mg PO DAILY #90 tabs 07/30/21 tamsulosin 0.4 mg capsule 0.8 mg PO DAILY #180 caps 07/30/21 fenofibrate 54 mg tablet 108 mg PO DAILY #180 tabs 11/06/21 oxybutynin chloride 5 mg tablet 5 mg PO BID Urge incontinence #180 11/06/21 tabs carvedilol 12.5 mg tablet 12.5 mg PO BID #90 tabs 12/23/21 cholecalciferol (vitamin D3) 125 125 mcg PO QWEEK #1 cap 02/17/22 mcg (5,000 unit) capsule triamcinolone acetonide 0.1 % 1 applic topical BID #453.6 grams 02/17/22 topical cream amoxicillin 875 mg-potassium 1 tab PO BID 10 days #20 tabs 03/04/22 clavulanate 125 mg tablet ondansetron 4 mg disintegrating 4 mg PO Q8H PRN nausea and 03/05/22 tablet vomiting #10 tabs oxycodone 5 mg tablet 5 mg PO Q6H PRN pain #20 tabs 03/05/22 Allergies Allergy/AdvReac Type Severity Reaction Status Date / Time Interferons Allergy Severe unknown Verified 03/01/22 12:55 sitagliptin [From Hirouvprieto] Allergy Severe unknown Verified 03/01/22 12:55 Latex, Natural Rubber Allergy Unknown Verified 03/01/22 12:55 Review of Systems Review of Systems Narrative: GENERAL: Denies chills, fatigue, malaise, fever, sweats, travel HEENT: Denies sinus pain, ear pain, sore throat, difficulty swallowing, neck pain RESPIRATORY: Denies dyspnea, cough, wheezing, hemoptysis, sputum. CARDIOVASCULAR: Denies chest pain, palpitations, orthopnea, edema GASTROINTESTINAL: See HPI : Denies dysuria, frequency, incontinence, hematuria, urinary retention, flank pain. MUSCULOSKELETAL: Denies weakness, joint pain, or bony pain SKIN: No rash, no erythema, no pruritus NEUROLOGIC: Denies weakness, dizziness, headache, numbness, change in speech, confusion PSYCHIATRIC: No concerning psychosocial issues. 12 point review of systems is negative except for those stated above and HPI Patient History Medical History Bladder cancer BPH loc w urin obs/LUTS History of bladder cancer History of urinary urgency Hyperlipidemia Morbid obesity Renal calculus Scrotum swelling Sleep apnea TIA (transient ischemic attack) Urge incontinence Surgical History Hx of circumcision Hx of cystoscopy Hx of hernia repair Family History Father Cancer Pulmonary embolism Brother Cancer Hypertension IV drug user Mother Hypertension Social History household members: spouse Smoking Status: Former smoker alcohol intake: current Smoking Status: Former smoker alcohol intake frequency: holidays/special occasions only Substance Use Type: does not use Exam Initial Vital Signs Initial Vital Signs: Vital Signs Temperature 97.0 F L 03/04/22 19:26 Pulse Rate 63 03/04/22 19:26 Respiratory Rate 20 03/04/22 19:26 Blood Pressure 145/69 H 03/04/22 19:26 Pulse Oximetry 99 03/04/22 19:26 Oxygen Delivery Method 03/04/22 19:26 GENERAL: Alert 76-year-old male appears uncomfortable HEENT: Head atraumatic,EOMI, pupils reactive, face symmetric, moist mucous membranes CARDIOVASCULAR: Regular rate and rhythm without murmurs, rubs or gallops. RESPIRATORY: Breath sounds equal bilaterally, no wheezes rales or rhonchi. No respiratory distress ABDOMEN: Soft, mild epigastric right upper quadrant pain no guarding no rebound no distention EXTREMITIES: Normal range of motion, no clubbing or edema. Neurovascularly intact NEUROLOGICAL: Alert and oriented x4.N SKIN: Warm, dry, no laceration, no petechiae, no rashes or lesions. Course Orders Ordered: ED Orders 03/04/22 19:29 EKG-12 Lead Stat 03/04/22 19:35 Complete Blood Count AUTO DIFF Stat Comprehensive Metabolic Panel Stat Lactate (Lactic Acid) Stat Lipase Stat Partial Thromboplastin Time Stat Prothrombin Time INR Stat 03/04/22 19:40 COVID19 -Nasal RAPID/Pre-Proc Stat 03/04/22 20:17 CT abdomen pelvis wo con Stat US abdomen limited Stat 03/04/22 21:21 Chest [XR chest 1V] Stat Discontinued Medications Hydrocodone Bitart/Acetaminophen (Hydrocodone/Acet 5/325 Prepack) 1 bottle MISC SEEINSTR ONE Stop: 03/05/22 00:50 Last Admin: 03/05/22 00:54 Dose: 1 bottle Documented By: EMPERATRIZ Hydromorphone HCl (Hydromorphone 1 Mg Inj) 1 mg IV NOW ONE Stop: 03/04/22 20:18 Last Admin: 03/04/22 20:31 Dose: 1 mg Documented By: EMPERATRIZ Hydromorphone HCl (Hydromorphone 1 Mg Inj) 1 mg IV NOW ONE Stop: 03/04/22 22:24 Last Admin: 03/04/22 22:27 Dose: 1 mg Documented By: EMPERATRIZ Sodium Chloride (Normal Saline 0.9%) 1,000 mls @ 1,000 mls/hr IV BOLUS ONE Stop: 03/04/22 21:16 Last Admin: 03/04/22 21:52 Dose: 1,000 mls/hr Documented By: DERRICK Piperacillin Sod/Tazobactam (Sod 3.375 gm/ Sodium Chloride) 100 mls @ 25 mls/hr IV NOW ONE Stop: 03/04/22 22:43 Last Admin: 03/04/22 23:03 Dose: 25 mls/hr Documented By: EMPERATRIZ Ondansetron HCl (Ondansetron 4 Mg/2 Ml Inj) 4 mg IV NOW ONE Stop: 03/04/22 19:30 Last Admin: 03/04/22 20:31 Dose: 4 mg Documented By: EMPERATRIZ Ondansetron HCl (Ondansetron 4 Mg/2 Ml Inj) 4 mg IV NOW ONE Stop: 03/04/22 20:18 Vital Signs Vital signs: Vital Signs - 8 hr 03/04/22 19:26 03/05/22 01:12 Temperature 97.0 F L Pulse Rate 63 65 Respiratory Rate 20 14 Blood Pressure 145/69 H 175/88 H Pulse Oximetry 99 99 Oxygen Delivery Method Room Air Room Air MDM - Abdominal Pain Lab Data Result diagrams: 03/04/22 19:35 03/04/22 19:35 Labs: Lab Results 03/04/22 03/04/22 03/04/22 Range/Units 19:35 19:35 19:35 WBC 6.5 (4.5-11.0) X10^3/uL RBC 3.91 L (4.5-5.9) X10^6/uL Hgb 11.2 L (13.5-17.5) g/dL Hct 33.5 L (41-53) % MCV 85.8 (80-100) fL MCH 28.7 (26-34) PG MCHC 33.4 (30-36) % RDW 15.0 H (11.6-14.8) % Plt Count 289 (150-400) X10^3/uL Neut % (Auto) 74.9 (50-75) % Lymph % (Auto) 15.8 L (25-40) % [place] % (Auto) 6.5 (3-14) % Eos % (Auto) 2.0 (2-4) % Baso % (Auto) 0.8 (0-2) % Neut # (Auto) 4900 (1975-2975) /uL Lymph # (Auto) 1000 L (8626-6262) /uL [place] # (Auto) 400 (0-900) /uL Eos # (Auto) 100 (0-450) /uL Baso # (Auto) 100 (0-100) /uL PT 12.8 H (10.1-12.7) SECONDS INR 1.1 (0.9-1.3) APTT 32 (26-36) SECONDS Sodium 135 L (137-145) mmol/L Potassium 4.6 (3.4-5.1) mmol/L Chloride 100 (98-107) mmol/L Carbon Dioxide 29 (22-32) mmol/L BUN 54 H (9-20) mg/dL Creatinine 2.73 H (0.66-1.25) mg/dL Estimated GFR 24 L (>60) mL/min BUN/Creatinine Ratio 19.8 (6-22) Glucose 165 H (80-110) mg/dL Lactate (0.7-2.1) mmol/L Calcium 8.2 L (8.4-10.2) mg/dL Total Bilirubin 0.8 (0.2-1.3) mg/dL AST 140 H (17-59) IU/L ALT 150 H (<50) IU/L Alkaline Phosphatase 513 H (38-126) U/L Total Protein 6.1 L (6.3-8.2) g/dL Albumin 2.8 L (3.5-5.0) g/dL Globulin 3.3 (1.7-4.1) g/dL Albumin/Globulin Ratio 0.8 L (1.0-2.8) Lipase 449 H D (23-300) U/L SARS-CoV-2 (PCR) (Negative) 03/04/22 03/04/22 Range/Units 19:35 19:40 WBC (4.5-11.0) X10^3/uL RBC (4.5-5.9) X10^6/uL Hgb (13.5-17.5) g/dL Hct (41-53) % MCV (80-100) fL MCH (26-34) PG MCHC (30-36) % RDW (11.6-14.8) % Plt Count (150-400) X10^3/uL Neut % (Auto) (50-75) % Lymph % (Auto) (25-40) % [place] % (Auto) (3-14) % Eos % (Auto) (2-4) % Baso % (Auto) (0-2) % Neut # (Auto) (8331-6312) /uL Lymph # (Auto) (7232-5371) /uL [place] # (Auto) (0-900) /uL Eos # (Auto) (0-450) /uL Baso # (Auto) (0-100) /uL PT (10.1-12.7) SECONDS INR (0.9-1.3) APTT (26-36) SECONDS Sodium (137-145) mmol/L Potassium (3.4-5.1) mmol/L Chloride (98-107) mmol/L Carbon Dioxide (22-32) mmol/L BUN (9-20) mg/dL Creatinine (0.66-1.25) mg/dL Estimated GFR (>60) mL/min BUN/Creatinine Ratio (6-22) Glucose (80-110) mg/dL Lactate 0.9 (0.7-2.1) mmol/L Calcium (8.4-10.2) mg/dL Total Bilirubin (0.2-1.3) mg/dL AST (17-59) IU/L ALT (<50) IU/L Alkaline Phosphatase (38-126) U/L Total Protein (6.3-8.2) g/dL Albumin (3.5-5.0) g/dL Globulin (1.7-4.1) g/dL Albumin/Globulin Ratio (1.0-2.8) Lipase (23-300) U/L SARS-CoV-2 (PCR) Negative (Negative) Imaging Data CT scan - abdomen/pelvis: Radiologist's Impression: PROCEDURE:? CT ABDOMEN PELVIS WO CON ? INDICATIONS:? ab pain recent cholecystitis without cholecystectomy ? TECHNIQUE:? Axial sections were acquired from the lung bases to the pubic symphysis.? Coronal and sagittal reformats were performed.? For radiation dose reduction, the following was used: ?automated exposure control, adjustment of mA and/or kV according to patient size.? ? COMPARISON:? Formerly [facility], US, US ABDOMEN LIMITED, 03/01/2022, 11:16.? Formerly [facility], MR, MR ABDOMEN WO/W CON, 03/01/2022, 15:38.? Formerly [facility], CT, CT ABDOMEN PELVIS WO CON, 03/01/2022, 12:45. ? FINDINGS:? Image quality:? Excellent.? ? Lung bases:? There are bilateral small to moderate pleural effusions, right greater than left, which appear increased compared to the prior study.? Associated mild compressive atelectasis is visualized.? Heart:? Heart is normal in size. ? ABDOMEN: Liver:? Noncontrast evaluation of the liver demonstrates no discrete hepatic mass. Gallbladder:? There are multiple dependent clustered calcified gallstones in the gallbladder.? There is mild gallbladder wall thickening.? ? Biliary ducts:? No biliary ductal dilatation.? There is a small punctate dependent filling defect within the common bile duct on series 2, image 38 compatible with choledocholithiasis. ? Pancreas:? A small cystic lesion in the pancreatic head measuring up to approximately 1.4 cm is redemonstrated but was seen to greater advantage on the prior MRI.? No pancreatic duct dilatation. Spleen:? Normal in size.? ? Adrenal Glands:? No adrenal nodules.? ? Kidneys and Ureters:? No hydronephrosis.? There is a nonobstructing stone within the inferior pole of the left kidney measuring up to 0.7 cm.? This demonstrates att enuation values of approximately 900-1000 Hounsfield units. ? Stomach and Bowel:? Stomach a small bowel loops are normal in caliber and wall thickness. ?The appendix is normal in appearance.? There is a short segment of concentric wall thickening in the mid ascending colon as seen on series 2, image 62. There is colonic diverticulosis without acute diverticulitis. Peritoneum:? No abnormal intraperitoneal fluid.? No free air.? ? Ventral Wall: ? No hernia.? Abdominal Nodes:? No retroperitoneal or mesenteric adenopathy by size criteria.? Vessels:? Aorta and inferior vena cava are normal in size.? ? PELVIS: Pelvic Organs:? There is moderate enlargement of the prostate.? ? Bladder:? Unremarkable.? ? Pelvic Nodes: No enlarged lymph nodes.? Miscellaneous:? There is a small fat-containing right inguinal hernia. ? Bones:? There are bilateral small sclerotic foci within the bony pelvis a redemonstrated. ? IMPRESSION:? ? 1. Cholelithiasis with mild gallbladder wall thickening.? The findings are n onspecific but may again reflect acute cholecystitis.? Recommend correlation with ultrasound if indicated. ? 2. Choledocholithiasis with a punctate common duct stone demonstrated without definite biliary ductal dilatation. ? 3. Concentric wall thickening of the mid ascending colon.? Intramural mass cannot be excluded.? Recommend correlation with colonoscopy.? No associated bowel obstruction. ? 4. Scattered small sclerotic foci within the visualized osseous structures are nonspecific but likely represent bone islands.? ? Dictated by: Declan Mai M.D. on 03/04/2022 at 21:26 ? ? Approved by: Declan Mai M.D. on 03/04/2022 at 21:43 ? US - abdomen: Radiologist's Impression: PROCEDURE: US ABDOMEN LIMITED ? INDICATIONS:? RIGHT UPPER QUADRANT PAIN ? TECHNIQUE:? Real-time focused scanning was performed of the abdomen, with image documentation.? ? COMPARISON:? Formerly [facility], , US ABDOMEN LIMITED, 03/01/2022, 11:16. ? FINDINGS:? ? Evaluation of the liver demonstrates no discrete hepatic mass. ? The gallbladder is distended.? Multiple gallstones are demonstrated in the gallbladder as well as biliary sludge.? No definite gallbladder wall thickening.? No pericholecystic fluid.? Patient was reportedly tender on examination. ? No intrahepatic biliary ductal dilatation.? The common bile duct is mildly distended, measuring up to 0.8 cm. ? Pancreas was not well seen sonographically.? ? There are bilateral pleural effusions, right greater than left. ? The spleen is mildly enlarged, measuring up to 15.0 cm. ? A few simple appearing cysts are noted within the right kidney.? ? ? IMPRESSION:? ? 1. Cholelithiasis and distention of the gallbladder without wall thickening or pericholecystic fluid to definitely suggest cholecystitis.? However, clinical correlation and follow-up are recommended to exclude developing cholecystitis. ? 2. Mild biliary ductal dilatation.? Choledocholithiasis cannot be excluded.? Recommend correlation clinically including with laboratory values.? Further evaluation may be obtained with MRCP if indicated. ? 3. Mild splenomegaly. ? 4. Bilateral pleural effusions noted.? ? ? Dictated by: Declan Mai M.D. on 03/04/2022 at 22:55 ? ? Approved by: Declan Mai M.D. on 03/04/2022 at 22:59 ? Chest x-ray: Radiologist's Impression: rovider: Mary Portillo D.O. PROCEDURE:? XR CHEST 1V ? INDICATIONS:? pleural effusion ? TECHNIQUE:? One view of the chest was acquired.? ? COMPARISON:? [facility], CR, XR CHEST 1 VIEW, 06/17/2019, 22:33.? Formerly [facility], CR, XR CHEST 1V, 03/01/2022, 10:56. ? FINDINGS:? ? Surgical changes and devices:? None.? ? Lungs and pleura:? No acute consolidation.? Bilateral dense nodules are redemonstrated, measuring up to 1.1 cm in the right perihilar region consistent with calcified granulomas.? There is mild blunting of the costophrenic angles bilaterally consistent with pleural effusions. ? Mediastinum:? Mediastinal contours appear normal.? Heart size is normal.? ? Bones and chest wall:? No suspicious bony lesions.? Overlying soft tissues appear unremarkable.? ? IMPRESSION:? ? 1. Small bilateral pleural effusions. ? 2. Bilateral calcified nodules consistent with calcified granulomas. ? ? Dictated by: Declan Mai M.D. on 03/04/2022 at 22:59 ? ? ECG Data Interpretation: Atrial fibrillation rate [address] changes artifact noted MDM Narrative Medical decision making narrative: Patient was discharged a few hours ago he previously did not have any pain however now having pain. Blood work overall is improving more stable. CT is consistent with previous diagnosis is. He is scheduled for an outpatient cholecystectomy at this time there is no need for non emergent cholecystectomy. I did discuss with Dr. Mcginnis, surgeon Unfortunately due to severe is staffing shortage even if he were pre admitted he would not be able to have surgery until his schedule time in 5 days. I also discussed with hospitalist is at this time recommended that patient be discharged home with pain medication and continue his antibiotics. I discussed plan with both patient and . They did not previously have pain medications at happy to send them home with pain medications recommended a low- fat diet. If failing at home then needs to come back for possible admission for pain control and more emergent or urgent cholecystectomy. Discharge Plan Departure Patient Disposition: Home Clinical Impression: Cholelithiasis, Acute cholecystitis Instructions: DI for Cholecystitis Activity Restrictions/Additional Instructions: *You have been diagnosed with cholecystitis cholelithiasis *What to do: At this time avoid high fat diet please follow a low fat diet this will help keep her pain under control. You are scheduled to have surgery on Wednesday. *Continue to take medications as directed--> SENT TO [facility] Oxycodone 5 mg every 6 hours if needed for severe pain Zofran 4 mg every 8 hours if needed for nausea or vomiting Tylenol 650 mg every 4-6 hours if needed for [id number] pain *Follow up with your primary care provider in 2-3 days or call [phone] *Return to ER if you should have increasing pain fever vomiting or any new, worsening or concerning symptoms CONTROLLED SUBSTANCE DISCHARGE (Narcotoic/benzodiazepine/Flexeril/Phenergan) 1. You have been prescribed narcotic medications, it does have acetaminophen/Tylenol/paracetamol in it, DO NOT TAKE MORE THAN 4,00mg in 24 hours of Tylenol. TRAMADOL DOES NOT CONTAIN TYLENOL 2. Please understand that we cannot provide further refills of narcotics, benzodiazepines or controlled substances through the ED and her pain management will need to be through your provider. 3. While on these medications you cannot drive or operate heavy machinery. 4. You cannot sign legal documents or perform any duties such as this. 5. As long as you're taking opiate pain medications he should also be taking a stool softener such as Colace, Dulcolax, MiraLAX or prune juice, to help avoid constipation. Prescriptions: New oxycodone 5 mg tablet 5 mg PO Q6H PRN (Reason: pain) Qty: 20 0RF ondansetron 4 mg tablet,disintegrating 4 mg PO Q8H PRN (Reason: nausea and vomiting) Qty: 10 0RF No Action tamsulosin 0.4 mg capsule 0.8 mg PO DAILY Qty: 180 3RF rosuvastatin 20 mg tablet 20 mg PO DAILY Qty: 90 3RF carvedilol 12.5 mg tablet 12.5 mg PO BID Qty: 90 3RF Rx Instructions: must administer with a meal/food lisinopril 40 mg tablet 40 mg PO DAILY spironolactone 25 mg tablet 25 mg PO DAILY fenofibrate 54 mg tablet 108 mg PO DAILY Qty: 180 3RF oxybutynin chloride 5 mg tablet 5 mg PO BID Qty: 180 3RF furosemide [Lasix] 20 mg tablet 40 mg PO DAILY Rx Instructions: 20-60 mg a day w/ adjustment for daily weights cholecalciferol (vitamin D3) 125 mcg (5,000 unit) capsule 125 mcg PO QWEEK Qty: 1 0RF coenzyme Q10 100 mg capsule 100 mg PO DAILY Centrum Silver 400-250 mcg tablet,chewable 1 tab PO DAILY Tylenol Extra Strength 500 mg powder in packet 500 mg PO QID PRN (Reason: Pain (Scale Score 4-6)) triamcinolone acetonide 0.1 % cream 1 applic topical BID Qty: 453.6 2RF ergocalciferol (vitamin D2) [Vitamin D2] 1,250 mcg (50,000 unit) capsule 1 unit PO QWEEK amoxicillin-pot clavulanate 875-125 mg tablet 1 tab PO BID 10 Days Qty: 20 0RF Referrals: Milton Rodriguez MD [Primary Care Provider] - Visit Report Forms: Patient Portal/API
[2022-03-04 20:04] LABS: PTT Partial Thromboplastin Tim 32 SECONDS (26-36)
--- NOTE | 2022-03-04 20:17 | DI.CT.S_ITS ---
PROCEDURE: CT ABDOMEN PELVIS WO CON INDICATIONS: ab pain recent cholecystitis without cholecystectomy TECHNIQUE: Axial sections were acquired from the lung bases to the pubic symphysis. Coronal and sagittal reformats were performed. For radiation dose reduction, the following was used: automated exposure control, adjustment of mA and/or kV according to patient size. COMPARISON: [facility], US, US ABDOMEN LIMITED, 03/01/2022, 11:16. [facility], MR, MR ABDOMEN WO/W CON, 03/01/2022, 15:38. [facility], CT, CT ABDOMEN PELVIS WO CON, 03/01/2022, 12:45. FINDINGS: Image quality: Excellent. Lung bases: There are bilateral small to moderate pleural effusions, right greater than left, which appear increased compared to the prior study. Associated mild compressive atelectasis is visualized. Heart: Heart is normal in size. ABDOMEN: Liver: Noncontrast evaluation of the liver demonstrates no discrete hepatic mass. Gallbladder: There are multiple dependent clustered calcified gallstones in the gallbladder. There is mild gallbladder wall thickening. Biliary ducts: No biliary ductal dilatation. There is a small punctate dependent filling defect within the common bile duct on series 2, image 38 compatible with choledocholithiasis. Pancreas: A small cystic lesion in the pancreatic head measuring up to approximately 1.4 cm is redemonstrated but was seen to greater advantage on the prior MRI. No pancreatic duct dilatation. Spleen: Normal in size. Adrenal Glands: No adrenal nodules. Kidneys and Ureters: No hydronephrosis. There is a nonobstructing stone within the inferior pole of the left kidney measuring up to 0.7 cm. This demonstrates attenuation values of approximately 900-1000 Hounsfield units. Stomach and Bowel: Stomach a small bowel loops are normal in caliber and wall thickness. The appendix is normal in appearance. There is a short segment of concentric wall thickening in the mid ascending colon as seen on series 2, image 62. There is colonic diverticulosis without acute diverticulitis. Peritoneum: No abnormal intraperitoneal fluid. No free air. Ventral Wall: No hernia. Abdominal Nodes: No retroperitoneal or mesenteric adenopathy by size criteria. Vessels: Aorta and inferior vena cava are normal in size. PELVIS: Pelvic Organs: There is moderate enlargement of the prostate. Bladder: Unremarkable. Pelvic Nodes: No enlarged lymph nodes. Miscellaneous: There is a small fat-containing right inguinal hernia. Bones: There are bilateral small sclerotic foci within the bony pelvis a redemonstrated. IMPRESSION: 1. Cholelithiasis with mild gallbladder wall thickening. The findings are nonspecific but may again reflect acute cholecystitis. Recommend correlation with ultrasound if indicated. 2. Choledocholithiasis with a punctate common duct stone demonstrated without definite biliary ductal dilatation. 3. Concentric wall thickening of the mid ascending colon. Intramural mass cannot be excluded. Recommend correlation with colonoscopy. No associated bowel obstruction. 4. Scattered small sclerotic foci within the visualized osseous structures are nonspecific but likely represent bone islands. Dictated by: Declan Mai M.D. on 03/04/2022 at 21:26 Approved by: Declan Mai M.D. on 03/04/2022 at 21:43
--- NOTE | 2022-03-04 20:17 | DI.US.S_ITS ---
PROCEDURE: US ABDOMEN LIMITED INDICATIONS: RIGHT UPPER QUADRANT PAIN TECHNIQUE: Real-time focused scanning was performed of the abdomen, with image documentation. COMPARISON: [facility], , US ABDOMEN LIMITED, 03/01/2022, 11:16. FINDINGS: Evaluation of the liver demonstrates no discrete hepatic mass. The gallbladder is distended. Multiple gallstones are demonstrated in the gallbladder as well as biliary sludge. No definite gallbladder wall thickening. No pericholecystic fluid. Patient was reportedly tender on examination. No intrahepatic biliary ductal dilatation. The common bile duct is mildly distended, measuring up to 0.8 cm. Pancreas was not well seen sonographically. There are bilateral pleural effusions, right greater than left. The spleen is mildly enlarged, measuring up to 15.0 cm. A few simple appearing cysts are noted within the right kidney. IMPRESSION: 1. Cholelithiasis and distention of the gallbladder without wall thickening or pericholecystic fluid to definitely suggest cholecystitis. However, clinical correlation and follow-up are recommended to exclude developing cholecystitis. 2. Mild biliary ductal dilatation. Choledocholithiasis cannot be excluded. Recommend correlation clinically including with laboratory values. Further evaluation may be obtained with MRCP if indicated. 3. Mild splenomegaly. 4. Bilateral pleural effusions noted. Dictated by: Declan Mai M.D. on 03/04/2022 at 22:55 Approved by: Declan Mai M.D. on 03/04/2022 at 22:59
[2022-03-04] MEDS: ONDANSETRON 4 MG/2 ML INJ IV (20:31)
[2022-03-04] MEDS: HYDROMORPHONE 1 MG INJ IV ×2 (20:31→22:27)
--- NOTE | 2022-03-04 21:21 | DI.RAD.S_ITS ---
PROCEDURE: XR CHEST 1V INDICATIONS: pleural effusion TECHNIQUE: One view of the chest was acquired. COMPARISON: [facility], CR, XR CHEST 1 VIEW, 06/17/2019, 22:33. [facility], CR, XR CHEST 1V, 03/01/2022, 10:56. FINDINGS: Surgical changes and devices: None. Lungs and pleura: No acute consolidation. Bilateral dense nodules are redemonstrated, measuring up to 1.1 cm in the right perihilar region consistent with calcified granulomas. There is mild blunting of the costophrenic angles bilaterally consistent with pleural effusions. Mediastinum: Mediastinal contours appear normal. Heart size is normal. Bones and chest wall: No suspicious bony lesions. Overlying soft tissues appear unremarkable. IMPRESSION: 1. Small bilateral pleural effusions. 2. Bilateral calcified nodules consistent with calcified granulomas. Dictated by: Declan Mai M.D. on 03/04/2022 at 22:59 Approved by: Declan Mai M.D. on 03/04/2022 at 23:01
[2022-03-04 21:42] LABS: COVID19 -Nasal RAPID Negative (Negative)
[2022-03-04] MEDS: SODIUM CHLORIDE 0.9% 1,000 ML 1000 ML IV (21:52)
[2022-03-04] MEDS: PIPERACILLIN/TAZO 3.375 GM in SODIUM CHLORIDE 0.9% 100 ML IV (23:03)
[2022-03-05] MEDS: HYDROCODONE/ACET 5/325 PREPACK 1 BOTTLE MISC (00:54)
[2022-03-05 01:12] VITALS: BP 175/88; PULSE 65; RESP 14; O2SAT 99
--- NOTE | 2022-03-27 15:52 | PC.NURSE ---
late entry- RN DC'd IV site and IV Fluids upon discharge for patient at 0100
== END 2022-03-05 01:14 | disposition home or self-care (01) ==
PROVIDERS: Emergency Provider Emergency Medicine; PCP Family Medicine
DX: K80.20 Calculus of gallbladder without cholecystitis without obstruction (principal); J90 Pleural effusion, not elsewhere classified; R11.0 Nausea; Z20.822 Contact with and (suspected) exposure to COVID-19
CPT/HCPCS: 71045; 74176; 76705; 80053; 83605; 83690; 85025; 85610; 85730; 87635; 93005; 93010; 96365; 96366; 96375; 96376; 99283; 99284; C9803; J1170; J2405; J2543

== ENCOUNTER → 2022-03-31 11:56 | Outpatient (ROUT) | payer MEDICARE, SELFPAY ==
[2022-03-01 17:46] VITALS: BMI 25.2
[2022-03-31 13:08] LABS: Alanine Aminotransferase 41 IU/L (<50); Albumin 2.4 g/dL (3.5-5.0); Albumin Globulin Ratio 0.8 (1.0-2.8); Alkaline Phosphatase 161 U/L (38-126); Aspartate Aminotransferase 27 IU/L (17-59); BUN Creatinine Ratio 20.3 (6-22); Bilirubin Total 0.4 mg/dL (0.2-1.3); Blood Urea Nitrogen 75 mg/dL (9-20); Calcium 8.2 mg/dL (8.4-10.2); Carbon Dioxide 28 mmol/L (22-32); Chloride 99 mmol/L (98-107); Estimated Glomerular Filt Rate 16 mL/min (>60); Globulin 2.9 g/dL (1.7-4.1); Glucose 165 mg/dL (80-110); HEMOLYSIS < 15 (0-50); Potassium 4.3 mmol/L (3.4-5.1); Sodium 136 mmol/L (137-145); Total Protein 5.3 g/dL (6.3-8.2)
[2022-03-31 13:39] LABS: Prostate Specific Antigen Scrn 1.07 ng/mL (0.1-4.0)
[2022-03-31 14:04] LABS: Free T4, Direct Thyroxine 1.26 ng/dL (0.78-2.19)
[2022-03-31 16:57] LABS: Phosphorous 4.1 mg/dL (2.3-3.7)
== END ==
PROVIDERS: Surgery; PCP Family Medicine; Visit Provider Internal Medicine Nephrology
DX: K81.0 Acute cholecystitis (principal); E11.21 Type 2 diabetes mellitus with diabetic nephropathy; E11.69 Type 2 diabetes mellitus with other specified complication; E78.5 Hyperlipidemia, unspecified; R09.89 Other specified symptoms and signs involving the circulatory and respiratory systems; Z79.4 Long term (current) use of insulin; Z12.5 Encounter for screening for malignant neoplasm of prostate
CPT/HCPCS: 80053; 84100; 84439; 84443; G0103

== ENCOUNTER → 2022-04-06 11:43 | Outpatient (ROUT) | payer MEDICARE, SELFPAY ==
[2022-03-01 17:46] VITALS: BMI 25.2
[2022-04-06 11:57] LABS: Cholesterol 82 mg/dL (140-199); HDL Cholesterol 24 mg/dL (40-60); LDL Cholesterol Calculated 37 mg/dL (<100); Triglycerides 105 mg/dL (35-150)
== END ==
PROVIDERS: PCP Family Medicine; Visit Provider Internal Medicine Cardiovascular Disease
DX: E78.5 Hyperlipidemia, unspecified (principal)
CPT/HCPCS: 80061

== ENCOUNTER → 2023-12-30 12:42 | Outpatient (CLI) | payer MEDICARE, SELFPAY ==
[2023-11-17 15:46] VITALS: BMI 25.2
--- NOTE | 2023-12-30 12:43 | DI.CT.S_ITS ---
PROCEDURE: CT CHEST WO CON INDICATIONS: Continued pneumonia symptoms TECHNIQUE: Noncontrast 5 mm thick sections acquired from the pulmonary apices to the posterior costophrenic angles. 1 mm lung window, 5 mm thick coronal and sagittal and 7 mm axial MIP reformats were then acquired. For radiation dose reduction, the following was used: automated exposure control, adjustment of mA and/or kV according to patient size. COMPARISON: [facility], CT, CT CHEST WITHOUT CONTRAST, 12/08/2023, 11:22. FINDINGS: Image quality: Diagnostic Lungs and pleura: Similar right fissural granuloma. Similar partially solid and ground-glass nodule in the right upper lobe (3/100) with a similar 5-6 millimeter solid component. Left greater than right lower lung consolidations and nodular opacities are increased. Other smaller nodules and granulomas are also again seen. No drainable effusions Mediastinum, heart, and esophagus: Coronary and annular calcifications. There are valvular calcifications. No pathologic lymph nodes by size criteria Chest wall and thyroid: Unremarkable thyroid. Unremarkable chest wall Upper abdomen: No gross abnormality on these noncontrast images Bones: There are degenerative changes, no acute or suspicious osseous finding. IMPRESSION: Increased bibasilar consolidations and nodular opacities in an infectious/inflammatory pattern. However, given persistence, consider pulmonology consultation and/or sampling if clinically indicated Other pulmonary nodules and granulomas again seen. Close attention on follow-up is suggested for the partially solid ground-glass nodule in the right upper lobe, which may represent an adenocarcinoma spectrum lesion. No drainable pleural effusions. Other findings above. Dictated by: Ronny Fu M.D. on 12/30/2023 at 13:15 Approved by: Ronny Fu M.D. on 12/30/2023 at 13:18
== END ==
PROVIDERS: PCP Family Medicine; Referring Provider Family Medicine; Visit Provider Family Medicine
DX: J18.9 Pneumonia, unspecified organism (principal); R91.1 Solitary pulmonary nodule; I25.10 Atherosclerotic heart disease of native coronary artery without angina pectoris
CPT/HCPCS: 71250

== ENCOUNTER → 2024-02-14 14:36 | Outpatient (CLI) | payer MEDICARE, SELFPAY ==
[2023-11-17 15:46] VITALS: BMI 25.2
--- NOTE | 2024-02-14 14:37 | DI.CT.S_ITS ---
PROCEDURE: CT CHEST WO CON INDICATIONS: Pneumonia, cough, eval for change TECHNIQUE: Noncontrast 5 mm thick sections acquired from the pulmonary apices to the posterior costophrenic angles. 1 mm lung window, 5 mm thick coronal and sagittal and 7 mm axial MIP reformats were then acquired. For radiation dose reduction, the following was used: automated exposure control, adjustment of mA and/or kV according to patient size. COMPARISON: [facility], CT, CT CHEST WITHOUT CONTRAST, 12/08/2023, 11:22. [facility], CT, CT CHEST WO CON, 12/30/2023, 12:48. FINDINGS: Image quality: Diagnostic. Lower Neck: No enlarged lymph nodes. Thyroid: No thyroid nodules which require sonographic follow up, per consensus guidelines. Axillae: No enlarged lymph nodes. Chest Wall: Unremarkable. Bones: Multilevel degenerative changes are seen in the thoracic spine. Lungs and Pleura: Peripheral right lung base consolidations appear to have decreased in density when compared to the prior CT from 12/30/2023. Nodularity and patchy consolidations at the left lung base appears slightly more confluent when compared to the prior CT. Small bilateral pleural effusions are present, stable on the right and increased on the left. No pneumothorax. Bilateral calcified granulomas are noted. Small clustered nodules are seen in the right upper lobe (3/106) with resolution of previously seen adjacent ground-glass component. Findings are favored to be infectious/inflammatory in etiology but attention on follow-up exams is recommended. Heart: Heart size is normal. No pericardial effusion. Moderate to severe coronary artery calcifications. Thoracic Vessels: The aorta and pulmonary arteries demonstrate normal size. Mediastinum and [place]: No enlarged lymph nodes. Esophagus: No wall thickening. No hiatal hernia. Upper Abdomen: Visualized upper abdomen solid organs and bowel loops appear normal. IMPRESSION: 1. Bilateral consolidations and nodular opacities again seen in the lung bases, improved on the right and mildly worsened on the left. 2. Small bilateral pleural effusions, stable on the right and increased on the left. 3. Previously seen right upper lobe ground-glass nodule appears decreased in ground-glass component with residual clustered micro nodules, favored to be infectious or inflammatory in etiology although attention on follow-up exams is recommended. Approved by: Torey Grijalva M.D. on 02/15/2024 at 13:22
== END ==
LOC: CT 14:36
PROVIDERS: PCP Family Medicine; Referring Provider Internal Medicine Critical Care Medicine; Visit Provider Internal Medicine Critical Care Medicine
DX: J18.9 Pneumonia, unspecified organism (principal); J90 Pleural effusion, not elsewhere classified; R91.8 Other nonspecific abnormal finding of lung field; I25.10 Atherosclerotic heart disease of native coronary artery without angina pectoris
CPT/HCPCS: 71250

== ENCOUNTER → 2024-04-10 12:30 | Outpatient (CLI) | payer MEDICARE, SELFPAY ==
[2023-11-17 15:46] VITALS: BMI 25.2
--- NOTE | 2024-04-10 12:31 | DI.CT.S_ITS ---
PROCEDURE: CT CHEST WO CON INDICATIONS: H/o consolidation and effusion, eval for change TECHNIQUE: Noncontrast 5 mm thick sections acquired from the pulmonary apices to the posterior costophrenic angles. 1 mm lung window, 5 mm thick coronal and sagittal and 7 mm axial MIP reformats were then acquired. For radiation dose reduction, the following was used: automated exposure control, adjustment of mA and/or kV according to patient size. COMPARISON: [facility], CT, CT CHEST WO CON, 02/14/2024, 14:43. FINDINGS: Image quality: Diagnostic Lungs and pleura: [id number] bibasilar effusions, increased bilaterally compared to prior imaging. Chronic opacities and centrilobular nodules at the left lower lobe, decreased from prior. Minimal nodularity in the right lung base also seen, decreased right mid lung granuloma, stable. Other smaller granulomas are also present. Mediastinum, heart, and esophagus: Coronary calcifications. Borderline heart size. Esophagus appears unremarkable. No pathologic lymph nodes by size criteria. Chest wall and thyroid: Possible lipoma in the left upper back partially seen. There may be internal heterogeneous components. Upper abdomen: No significant changes compared to prior imaging. Vascular calcifications are seen Bones: Degenerative osseous findings. IMPRESSION: Decreased bibasilar, left greater than right nodularity and opacities, likely infectious/inflammatory. Consider continue follow-up at clinical discretion. Numerous granulomas are also present in both lungs. [id number] bilateral effusions are increased. Possible lipoma in the left upper back is partially seen, with internal heterogeneous components. If clinically suspicious, consider dedicated CT or MRI with contrast of this region. Other findings above Dictated by: Ronny Fu M.D. on 04/10/2024 at 16:23 Approved by: Ronny Fu M.D. on 04/10/2024 at 16:29
== END ==
PROVIDERS: PCP Family Medicine; Referring Provider Internal Medicine Critical Care Medicine; Visit Provider Internal Medicine Critical Care Medicine
DX: R91.8 Other nonspecific abnormal finding of lung field (principal); J90 Pleural effusion, not elsewhere classified; J18.9 Pneumonia, unspecified organism
CPT/HCPCS: 71250

== ENCOUNTER → 2024-08-21 14:14 | Outpatient (CLI) | payer MEDICARE, SELFPAY ==
[2023-11-17 15:46] VITALS: BMI 25.2
[2024-08-21 15:54] LABS: Prostate Specific Antigen Scrn 1.05 ng/mL (0.1-4.0)
== END ==
PROVIDERS: PCP Family Medicine; Referring Provider Family Medicine; Visit Provider Family Medicine
DX: E11.21 Type 2 diabetes mellitus with diabetic nephropathy (principal); Z12.5 Encounter for screening for malignant neoplasm of prostate; R09.89 Other specified symptoms and signs involving the circulatory and respiratory systems
CPT/HCPCS: 36415; 83036; G0103